=== PATIENT | male | born 1955 | race Hispanic/Latino ===

== ENCOUNTER 2016-11-13 13:32 | Observation (INO) | payer OTHER ==
[2016-11-13 13:32] VITALS: PULSE 82
[2016-11-13 14:04] LABS: ADD MANUAL DIFF? NO
[2016-11-13 14:09] LABS: BASO # 0.01 K/mm3 (0.0-2.0); BASO % 0.1 % (0.0-3.0); EOS # 0.2 (0.0-0.7); EOS % 1.8 % (1.5-5.0); GRAN # 6.47 (1.4-6.5); GRAN % 74.2 % (50.0-68.0); HEMATOCRIT 39.3 % (42.0-52.0); LYMPH # 1.6 (1.2-3.4); LYMPH % 17.9 % (22.0-35.0); MEAN CELL VOLUME 80.9 fL (80.0-105.0); MEAN CORPUSCULAR HEMOGLOBIN 27.2 pg (25.0-35.0); MEAN CORPUSCULAR HGB CONC 33.6 g/dl (31.0-37.0); MEAN PLATELET VOLUME 9.1 fl (7.0-11.0); MONO # 0.5 (0.1-0.6); PLATELET COUNT 283 10^3/uL (120.0-450.0); RED CELL DISTRIBUTION WIDTH 14.1 % (11.5-14.5); WHITE BLOOD COUNT 8.7 10^3/ul (4.5-11.0)
[2016-11-13] MEDS ORDERED: Metoprolol Succinate 50 mg XL Tab PO STA (14:14)
[2016-11-13 14:16] LABS: ALB/GLOB RATIO 1.1 (1.1-1.8); ALKALINE PHOSPHATASE 54 U/L (38-133); ALT/SGPT 30 U/L (7-56); AST/SGOT 25 U/L (15-59); BILIRUBIN,TOTAL 0.7 mg/dL (0.2-1.3); BLOOD UREA NITROGEN 16 mg/dL (7-21); CALCIUM 9.5 mg/dL (8.4-10.5); CARBON DIOXIDE 26 mmol/L (21-33); CHLORIDE 100 mmol/L (98-107); GFR AFRICAN-AMERICAN > 60; GLUCOSE,RANDOM 112 mg/dL (70-110); POTASSIUM 4.4 mmol/L (3.6-5.0); SODIUM 138 mmol/L (132-148); TOTAL PROTEIN 8.6 g/dL (5.8-8.3)
[2016-11-13 14:28] LABS: TROPONIN I < 0.01 ng/mL
--- NOTE | 2016-11-13 15:17 | ED PDOC ---
Arrival/HPI - General Chief Complaint: Chest Pain Time Seen by Provider: 11/13/16 13:45 Historian: Patient - History of Present Illness Narrative History of Present Illness (Text): 11/13/16 14:01 A 61 year old male, whose past medical history includes CAD with stents, presents to the emergency department complaining of exertional chest pain and dyspnea on exertion that began and hour and half ago. Patient reports currently he does not have the chest pain but every time he walks up the stairs he feels short of breath. He mention he is getting over a cold, but denies any fever, nausea, vomiting, diaphoresis, lower extremity swelling or any other complaints at this time. Patient took his Aspirin and Plavix this morning. He is a formal smoker, drinks socially but does not taking any drugs. 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 11/13/16 20:29 Time/Duration: 1-3 hours Symptom Onset: Sudden Symptom Course: Improving Quality: Other Activities at Onset: Rest Context: Home Past Medical History - Provider Review Nursing Documentation Reviewed: Yes - Tetanus Immunization Tetanus Immunization: Unknown - Cardiac Hx Cardiac Disorders: Yes Hx Cardiac Arrhythmia: Yes Hx Hypertension: Yes Hx Pacemaker: No - Neurological Hx Paralysis: No - HEENT Hx HEENT Disorder: Yes (WEARS RX GLASSES) - Hematological/Oncological Hx Blood Transfusions: No Hx Blood Transfusion Reaction: No - Musculoskeletal/Rheumatological Hx Musculoskeletal Disorders: Yes Hx Falls: Yes Hx Fractures: Yes (RIGHT ARM) - Psychiatric Hx Emotional Abuse: No Hx Physical Abuse: No Hx Substance Use: No - Surgical History Hx Cardiac Catheterization: Yes Hx Coronary Stent: Yes (3) - Anesthesia Hx Anesthesia: Yes Hx Anesthesia Reactions: No Hx Malignant Hyperthermia: No - Suicidal Assessment Feels Threatened In Home Enviroment: No Family/Social History - Physician Review Nursing Documentation Reviewed: Yes Family/Social History: Unknown Family HX Smoking Status: Former Smoker Hx Alcohol Use: Yes Frequency of alcohol use: Few days per week Hx Substance Use: No Hx Substance Use Treatment: No Allergies/Home Meds Allergies/Adverse Reactions: Allergies No Known Allergies Allergy (Verified 11/13/16 13:35) Home Medications: Home Meds Medication Instructions Recorded Confirmed Clopidogrel [Plavix] 75 mg PO DAILY 07/19/14 11/13/16 Aspirin [Aspirin] 81 mg PO DAILY 07/21/14 11/13/16 Oxycodone HCl [Oxycodone HCl ER] 30 mg PO PRN PRN 11/13/16 11/13/16 Rosuvastatin Calcium [Crestor] 10 mg PO DAILY 11/13/16 11/13/16 amLODIPine [Norvasc] 5 mg PO DAILY 11/13/16 11/13/16 Review of Systems - Physician Review All systems were reviewed & negative as marked: Yes - Review of Systems Constitutional: absent: Fevers Respiratory: Cough Cardiovascular: Chest Pain, NAQVI. absent: Edema Physical Exam Vital Signs Reviewed: Yes Vital Signs Temp Pulse Resp BP Pulse Ox 11/13/16 19:11 71 18 148/90 100 11/13/16 17:31 60 16 150/98 H 99 11/13/16 14:49 78 157/103 H 11/13/16 13:42 199/154 H 11/13/16 13:41 97.7 F 67 15 198/154 H 99 Temperature: Afebrile Blood Pressure: Hypertensive Pulse: Regular Respiratory Rate: Normal Appearance: Positive for: Well-Appearing, Non-Toxic, Comfortable Pain Distress: None Mental Status: Positive for: Alert and Oriented X 3 - Systems Exam Head: Present: Atraumatic, Normocephalic Pupils: Present: PERRL Extroacular Muscles: Present: EOMI Conjunctiva: Present: Normal Mouth: Present: Moist Mucous Membranes Neck: Present: Normal Range of Motion Respiratory/Chest: Present: Clear to Auscultation, Good Air Exchange. No: Respiratory Distress, Accessory Muscle Use Cardiovascular: Present: Regular Rate and Rhythm, Normal S1, S2. No: Murmurs Abdomen: Present: Normal Bowel Sounds. No: Tenderness, Distention, Peritoneal Signs Back: Present: Normal Inspection Upper Extremity: Present: Normal Inspection. No: Cyanosis, Edema Lower Extremity: Present: Normal Inspection. No: Edema Neurological: Present: GCS=15, CN II-XII Intact, Speech Normal Skin: Present: Warm, Dry, Normal Color. No: Rashes Psychiatric: Present: Alert, Oriented x 3, Normal Insight, Normal Concentration Medical Decision Making ED Course and Treatment: 11/13/16 14:01 Impression: A 61 year old male with exertional chest pain and dyspnea of exertion. Differential Diagnosis include but are not limited to: ACS vs. hypertension Plan: -- EKG -- Chest X-ray -- Labs -- Urinalysis -- Toprol -- Reassess and disposition Prior Visits: Notes and results from previous visits were reviewed. The patient last presented to the emergency department on 11/27/14 for evaluation of left sided chest pain. Progress Notes: EKG: Ordered, reviewed, and independently interpreted the EKG. Rate : 66 BPM Rhythm : NSR Interpretation : No ST/T changes from previous EKG. Comparison : No change from previous EKG for comparison. there are t wave inversions in v5 and v6 but were present previously 11/13/16 15:40 Chest X-ray: Creator : Crow Cox MD COMPARISON: 11/27/2014 FINDINGS: LUNGS: No active pulmonary disease. PLEURA: No significant pleural effusion identified, no pneumothorax apparent. CARDIOVASCULAR: Normal. OSSEOUS STRUCTURES: No significant abnormalities. VISUALIZED UPPER ABDOMEN: Normal. OTHER FINDINGS: None. IMPRESSION: No active disease. 11/13/16 16:25 Dr. Lopez paged. 11/13/16 16:[address] Aponte, who is aware and agrees with the plan to place the patient in Telemetry for observation for dyspnea on exertion and chest pain. He notes to consult Dr. Vidales. jeny salcido no answer. dr ga came to see pt and put orders in as well. I have discussed the results and plan with the patient, who expresses understanding. Patient given the opportunity to ask question, all questions were answered and there is agreement with the plan to be admitted to the hospital. 11/13/16 20:32 - Lab Interpretations Lab Results: 11/13/16 14:00 11/13/16 14:00 Lab Results 11/13/16 16:23: Urine Color Yellow, Urine Appearance Clear, Urine pH 6.0, Ur Specific [place] >= 1.030, Urine Protein Trace H, Urine Glucose (UA) Negative, Urine Ketones Negative, Urine Blood Small H, Urine Nitrate Negative, Urine Bilirubin Negative, Urine Urobilinogen 0.2, Ur Leukocyte Esterase Negative, Urine RBC 1 - 3, Urine WBC Negative, Ur Epithelial Cells 0 - 2, Urine Bacteria Trace 11/13/16 14:00: WBC 8.7 D, RBC 4.86, Hgb 13.2 L, Hct 39.3 L, MCV 80.9, MCH 27.2 , MCHC 33.6, RDW 14.1, Plt Count 283, MPV 9.1, Gran % 74.2 H, Lymph % (Auto) 17.9 L, Bent % (Auto) 6.0, Eos % (Auto) 1.8, Baso % (Auto) 0.1, Gran # 6.47, Lymph # 1.6, Bent # 0.5, Eos # 0.2, Baso # 0.01, Sodium 138, Potassium 4.4, Chloride 100, Carbon Dioxide 26, Anion Gap 16, BUN 16, Creatinine 1.0, Est GFR ( Amer) > 60, Est GFR (Non-Af Amer) > 60, Random Glucose 112 H, Calcium 9.5, Total Bilirubin 0.7, AST 25, ALT 30, Alkaline Phosphatase 54, Lactate Dehydrogenase 446, Total Creatine Kinase 71, Troponin I < 0.01, NT-Pro-B Natriuret Pep 118, Total Protein 8.6 H, Albumin 4.5, Globulin 4.1, Albumin/ Globulin Ratio 1.1 I have reviewed the lab results: Yes - RAD Interpretation Radiology Orders: 11/13/16 14:00 CHEST PORTABLE [RAD] Stat - Medication Orders Current Medication Orders: Amlodipine Besylate (Norvasc) 5 mg PO DAILY [facility] Aspirin (Ecotrin) 81 mg PO DAILY [facility] Atorvastatin Calcium (Lipitor) 40 mg PO DAILY [facility] Last Admin: 11/13/16 18:55 Dose: 40 MG Carvedilol (Coreg) 6.25 mg PO BID [facility] Discontinued Medications Enoxaparin Sodium (Lovenox) 70 mg SC STAT STA Stop: 11/13/16 18:30 Last Admin: 11/13/16 18:57 Dose: 70 MG Subcutaneous Administrations Document 11/13/16 18:57 SHARITA (Rec: 11/13/16 18:57 SHARITA [id number]) Injection Site MAR Injection Site Right Arm Charges for Administration # of Subcutaneous Administrations 1 Metoprolol Succinate (Toprol Xl) 50 mg PO STAT STA Stop: 11/13/16 14:15 Last Admin: 11/13/16 14:49 Dose: 50 MG MAR Pulse and Blood Pressure Document 11/13/16 14:49 SHARITA (Rec: 11/13/16 14:49 SHARITA [id number]) Pulse Pulse Rate (60-90) 78 Blood Pressure Blood Pressure (100/60-150/90) 157/103 - Scribe Statement The provider has reviewed the documentation as recorded by the Josue Adorno Provider Josue Attestation: All medical record entries made by the Kimberlyibcharlotte were at my direction and personally dictated by me. I have reviewed the chart and agree that the record accurately reflects my personal performance of the history, physical exam, medical decision making, and the department course for this patient. I have also personally directed, reviewed, and agree with the discharge instructions and disposition. . Disposition/Present on Arrival - Present on Arrival Any Indicators Present on Arrival: No History of DVT/PE: No History of Uncontrolled Diabetes: No Urinary Catheter: No History of Decub. Ulcer: No History Surgical Site Infection Following: None - Disposition Have Diagnosis and Disposition been Completed?: Yes Diagnosis: Unstable angina Disposition: HOSPITALIZED Disposition Time: 15:30 Patient Plan: Admission Condition: STABLE
--- NOTE | 2016-11-13 15:37 | RAD ---
HISTORY: chest pain COMPARISON: 11/27/2014 FINDINGS: LUNGS: No active pulmonary disease. PLEURA: No significant pleural effusion identified, no pneumothorax apparent. CARDIOVASCULAR: Normal. OSSEOUS STRUCTURES: No significant abnormalities. VISUALIZED UPPER ABDOMEN: Normal. OTHER FINDINGS: None. IMPRESSION: No active disease.
[2016-11-13 16:31] LABS: URINE BILIRUBIN NEGATIVE (NEGATIVE); URINE BLOOD SMALL (NEGATIVE); URINE GLUCOSE (UA) NEGATIVE (NEGATIVE); URINE KETONE NEGATIVE (NEGATIVE); URINE LEUKOCYTE ESTERASE NEGATIVE Leu/uL (NEGATIVE); URINE PROTEIN TRACE mg/dL (<30 mg/dL); URINE UROBILINOGEN 0.2 E.U./dL (<1 E.U./dL)
[2016-11-13 16:34] LABS: URINE APPEARANCE CLEAR (CLEAR); URINE COLOR YELLOW (YELLOW)
[2016-11-13 16:45] LABS: URINE BACTERIA TRACE (NEG); URINE EPITHELIAL CELLS 0 - 2 /hpf (0-5); URINE WBC NEGATIVE /hpf (0-6)
[2016-11-13] MEDS ORDERED: Enoxaparin 60 mg Syringe SC STA (18:25)
[2016-11-13] MEDS ORDERED: Enoxaparin 80 mg Syringe SC STA (18:29)
--- NOTE | 2016-11-13 19:20 | CON ---
DATE: 11/13/2016 REASON FOR CONSULTATION: Chest pain, possible acute coronary syndrome, unstable angina. BRIEF CLINICAL HISTORY: A 61-year-old male with a past medical history significant for coronary nilo ry disease, status post angioplasty twice. Came in with a complaint of chest pain while the patient was going up stairs in his house. Suddenly, he developed chest pain and got very short winded that s tops him from going up, so decided to come to the Emergency Room. PAST MEDICAL HISTORY: Significant for coronary artery disease, cardiomyopathy, ischemic and nonische viviane, history of alcohol abuse, history of coronary artery disease, status post PTCA of ramus intermed ius 07/21/2014 and then repeat stent in LAD and ramus 11/28/2014. Significant for coronary artery dis ease, status post PTCA x 2, first one is of ramus intermedius 07/21/2014 and then patient had a repea t cardiac catheterization and stenting was done 11/28/2014. At that time, 11/28/2014, patient had a st ent in ramus intermedius as well as stent in obtuse marginal 1 was done. PREVIOUS CARDIAC WORKUP: The patient had most recently cardiac catheterization done on 11/28/2014 of ramus with RAFAEL and obtuse marginal 1 RAFAEL. Prior to that, patient had a stent on 07/21/2014. Apparen tly, appears noncompliance, history of alcohol abuse, history of cardiomyopathy, ejection fraction 40 %-45%, EDP was in the range of 12-14 on last catheterization SOCIAL HISTORY: Denies any history of smoking, but history of alcohol abuse in the past. CURRENT MEDICATIONS: The patient is taking Crestor, Plavix 75 mg daily, Crestor 10 mg daily, amlodip ine 5 mg daily, oxycodone and aspirin. REVIEW OF SYSTEMS: As per HPI. PHYSICAL EXAMINATION: VITAL SIGNS: Temperature afebrile, heart rate 60, blood pressure 150/98. HEENT: PERRLA. Extraocular muscles intact. NECK: Supple. No carotid bruits. No thyromegaly. CHEST: Clear to auscultation. HEART: S1, S2 regular. ABDOMEN: Soft. EXTREMITIES: Clubbing, cyanosis negative. BLOOD WORKUP: WBC 8.7, hemoglobin 13.2, hematocrit 39.3, platelet count 283. Chemistry shows sodium 130, potassium 4.1, chloride 100, carbon dioxide 26, anion gap of 16, BUN 16, creatinine 1.0. EKG showed normal sinus, no acute ST-T changes noted. IMPRESSION: Unstable angina, hypertension, coronary artery disease, status post stent 07/21/2014 of [facility] and recently 11/2014, patient had re-stent in ramus as well as obtuse marginal 1, hypertension, hyperlipidemia, noncompliance with the medication. RECOMMENDATION: We will give the Plavix, 1 dose of Lovenox. Cardiac catheterization tomorrow for po ssible angioplasty. Discussed with the patient briefly alternatives. The patient agreed. We will p roceed for cardiac catheterization tomorrow. Keep n.p.o. after 12:00 midnight for cardiac catheteriz ation. Will get lipid profile, TSH, hemoglobin A1c in the morning and keep n.p.o. We will give Plav ix. Thank you, Dr. Lopez, for providing us the opportunity in taking care of the patient. Nini Ga MD cc: [id number] TT: 11/13/2016 19:19:44 Confirmation # [id number] Dictation # [id number] en
[2016-11-13 23:15] VITALS: BMI 26.3
[2016-11-14 07:17] LABS: ADD MANUAL DIFF? NO
[2016-11-14 07:31] LABS: BASO # 0.02 K/mm3 (0.0-2.0); BASO % 0.3 % (0.0-3.0); EOS # 0.2 (0.0-0.7); EOS % 2.1 % (1.5-5.0); GRAN # 4.65 (1.4-6.5); GRAN % 65.4 % (50.0-68.0); HEMATOCRIT 39.6 % (42.0-52.0); LYMPH # 1.7 (1.2-3.4); LYMPH % 24.3 % (22.0-35.0); MEAN CORPUSCULAR HGB CONC 33.3 g/dl (31.0-37.0); MONO # 0.6 (0.1-0.6); MONO % 7.9 % (1.0-6.0); PLATELET COUNT 258 10^3/uL (120.0-450.0); RED CELL DISTRIBUTION WIDTH 14.1 % (11.5-14.5); WHITE BLOOD COUNT 7.1 10^3/ul (4.5-11.0)
[2016-11-14 07:47] LABS: ALB/GLOB RATIO 1.1 (1.1-1.8); ALKALINE PHOSPHATASE 58 U/L (38-133); ALT/SGPT 33 U/L (7-56); AST/SGOT 40 U/L (15-59); BILIRUBIN,TOTAL 0.6 mg/dL (0.2-1.3); BLOOD UREA NITROGEN 14 mg/dL (7-21); CALCIUM 9.7 mg/dL (8.4-10.5); CARBON DIOXIDE 27 mmol/L (21-33); CHLORIDE 100 mmol/L (95-110); CHOLESTEROL 311 mg/dL (130-200); GFR AFRICAN-AMERICAN > 60; GLUCOSE,RANDOM 82 mg/dL (70-110); MAGNESIUM 2.1 mg/dL (1.7-2.2); PHOSPHOROUS 3.1 mg/dL (2.5-4.5); POTASSIUM 4.2 mmol/L (3.6-5.0); SODIUM 139 mmol/L (132-148); TOTAL PROTEIN 8.1 g/dL (5.8-8.3)
--- NOTE | 2016-11-14 09:14 | PN ---
DATE: 11/14/2016 REASON FOR CONSULTATION AND FOLLOWUP: Chest pain, acute coronary syndrome, unstable angina. BRIEF CLINICAL HISTORY: This is a 61-year-old male with past medical history significant for coronar y artery disease, status post angioplasty twice. First angioplasty, the patient had ramus intermediu s on 07/21/2014 and a repeat stent in ramus 11/28/2014 and obtuse marginal 1. By mistake yesterday, pu t LAD. It was an obtuse marginal 1, OM1 on 11/28/2014, came yesterday with a complaint of new onset of chest pain. The patient was going up stairs and felt a little chest pain and suddenly got short o f breath, came to the Emergency Room. The patient is scheduled for cardiac catheterization today. D enies any chest pain at rest. History of alcohol abuse. PHYSICAL EXAMINATION: VITAL SIGNS: Temperature afebrile, heart rate 67, blood pressure 144/79. HEENT: PERRLA. Extraocular muscles intact. NECK: Supple. No carotid bruits. No thyromegaly. CHEST: Clear to auscultation. HEART: S1, S2 regular. ABDOMEN: Soft. EXTREMITIES: Clubbing and cyanosis negative. LABORATORY DATA: Blood workup as follows: WBC 7.1, hemoglobin 13.8, hematocrit 39.6, platelet count 258. Chemistry shows sodium 130, potassium 4.2, chloride 100, carbon dioxide 27, anion gap of 16, B UN 14, creatinine 0.4. Troponin pending. Triglyceride 322, cholesterol 311, LDL 208, HDL 39. TSH p ending. Hemoglobin A1c pending. IMPRESSION: Acute coronary syndrome, unstable angina, prediabetic, hypertension, hyperlipidemia, non compliance with the medication, history of alcohol abuse. RECOMMENDATION: We will load Plavix. The patient was on Plavix. We will continue Plavix Continue C oreg, continue aspirin, continue Plavix, continue metoprolol, keep n.p.o. after the breakfast, cardia c catheterization at 3:30. Discussed with the patient benefits and alternatives. The patient is agr eeable to proceed for cardiac catheterization at 3:00 p.m. Further recommendation after cardiac cath eterization. Thank you, Dr. Lopez, for providing us the opportunity in taking care of the patient. Nini Ga MD cc:Eric Lopez MD [facility] TT: 11/14/2016 09:13:16 Confirmation # [id number] Dictation # [id number] tn
[2016-11-14 09:58] LABS: TROPONIN I 0.41 ng/mL
[2016-11-14] MEDS ORDERED: Morphine 2 mg/ml ISec IVP PRN (10:13)
[2016-11-14 11:16] LABS: INR 0.98 (0.93-1.08); PARTIAL THROMBOPLASTIN TIME 25.8 Seconds (23.7-30.8)
--- NOTE | 2016-11-14 13:23 | CARD ---
APPROVED REPORT EKG Measurement Heart [id number] <Conclusion> Normal sinus rhythm Inferior infarct, age undetermined ST & T wave abnormality, consider anterolateral ischemia Abnormal ECG
--- NOTE | 2016-11-14 13:35 | CARD ---
APPROVED REPORT EKG Measurement Heart [id number] <Conclusion> Normal sinus rhythm Inferior infarct, age undetermined Abnormal ECG
[2016-11-14] MEDS ORDERED: Lidocaine 2% Inj (20ml) ONE (15:31)
[2016-11-14] MEDS ORDERED: Nitroglycerin 50mg in D5W 250 ML IV ONE (15:32)
[2016-11-14] MEDS: Midazolam 2 MG/2 ML VIAL ONE ×2 (15:59→17:15)
[2016-11-14] MEDS ORDERED: Bacitracin 500 Units/gm Oint Foilpak UD TOP ONE (16:46)
[2016-11-14] MEDS ORDERED: Sodium Chloride 0.9% 1,000 ML IV SCH (17:00)
--- NOTE | 2016-11-14 17:24 | CARD ---
APPROVED REPORT Procedure(s) performed: Left Heart Catheterization HISTORY The patient is a 61 year-old male with a history of : previous ID (> 7 days), most recent EF: 45%. (EF Method: LVG), previous diagnostic cath, tobacco history() : The patient is a former smoker , previous PCI (The PCI date was 11/28/2014), hypertension , dyslipidemia , Admitted with unstable angina. INDICATION The indication(s) include : unstable angina , non-STEMI . CASE TECHNIQUE The patient was brought urgently to the Cardiac Catheterization Laboratory in a fasting state and was prepped and draped in a sterile manner. The left wrist was infiltrated with 2% Lidocaine subcutaneous anesthesia. A 6 Fr Glidesheath (Radial) sheath was inserted into the left radial artery without difficulty. Coronary angiography was performed using coronary diagnostic catheters. The left coronary system was accessed and visualized with a Diagnostic ,5 Fr JL 3.5 catheter. The right coronary system was accessed and visualized with a Diagnostic ,5 Fr JR 4 catheter. The left ventricle was accessed and visualized with a pigtail catheter. Left ventricular/Aortic Valve gradient assessed on pullback. Left ventriculogram was performed in GAMEZ projection. Closure device was deployed with a Fr TR Band (Large) without any complications. The patient tolerated the procedure well and there were no complications associated with the procedure. Vessel Analysis The patient's coronary anatomy is right dominant. The left main coronary artery is a large size vessel with diffuse calcification noted throughout this vessel and without significant stenosis. The left main trifurcates to the left anterior descending, circumflex, and ramus. The left anterior descending artery is a large size vessel with diffuse calcification noted throughout this vessel and with significant stenosis. There is a 40-50% stenosis in the ostial segment. mid LAD has 40-50% stenosis and distal LAD has 60-70% Diffuse stenosis The first diagonal branch is a small size vessel with diffuse calcification noted throughout this vessel and with significant stenosis. The second diagonal branch is a small size vessel with diffuse calcification noted throughout this vessel and without significant stenosis. The circumflex artery is a medium size vessel with diffuse calcification noted throughout this vessel and without significant stenosis. The first obtuse marginal branch is a medium size vessel with diffuse calcification noted throughout this vessel and without significant stenosis. patent stent in mid segment The second obtuse marginal branch is a small size vessel with diffuse calcification noted throughout this vessel and without significant stenosis. The ramus intermedius artery is a medium size vessel with diffuse calcification noted throughout this vessel and without significant stenosis. Patent stent in main ramus intermedius, which also gives off a small branch <1.5 mmm in diamete which is diffusely diseased, not suitable for PCI. There is a 95% stenosis in the mid segment. upper div. as mentioned above. The right coronary artery is a large size vessel with diffuse calcification noted throughout this vessel and without significant stenosis. The right posterior descending artery is a medium size vessel with diffuse calcification noted throughout this vessel and with significant stenosis. R PDA Divides into uper and lower division, Lower div. has 80-90% stenosis in mid segment <1.5 mm vessel not suitable for PCI The right posterolateral branch is a medium size vessel with diffuse calcification noted throughout this vessel and with significant stenosis. There is a 90% stenosis in the distal segment. not suitable for PCI ,distally <1.5 mm vessel Left Ventricle The left ventricle is mildly enlarged in size with mildly decreased contractility. Ischemic cardiomyopathy. The left ventricular ejection fraction is estimated to be 45%. The left ventricular end diastolic pressure is 18-20 mmHg. There was no gradient across the aortic valve upon pullback. Conclusion Patent stent in Ramus intermedius and OM1 Small vessel Diz involving Upper Div of Ramus intermedius, Lower Div of R PDA and PLV Br, which are all Small calibre vessels and ,1.5 mm in diameter and not Suitable for PCI. Mildly decreased LV FX. EF-45%, EDp-18-20 mmof Hg. Heavy Atyherosclerotic Spencer in coronaries. Recommendations Aggressive Medical TherapyCardiac Risk Reduction Program Complete abstinence of ETOH abuse Add Ranexa 500 mg po BID and Atorvastatin 40 mg daily in current regimen. Goal is to Keep LDL,70 Cc; Chip Mock MD
[2016-11-14 18:11] VITALS: TEMP 98.4; O2SAT 96
[2016-11-14 18:46] VITALS: RESP 18
[2016-11-14] MEDS ORDERED: Bacitracin 500 Units/gm Oint Foilpak UD ONE (18:53)
[2016-11-14 19:20] VITALS: BP 139/73; PULSE 71
--- NOTE | 2016-11-14 22:03 | HP ---
HISTORY OF PRESENT ILLNESS: This is a 61-year-old male who lives across the street from my office, I have known for several years with a history of hypertension since 2011, hyperlipidemia since 2012 an d intolerance to statin therapy and tobacco use. He comes to the Emergency Room because of chest karl n for approximately 2 hours duration. The patient says this is a pressure-like pain associated with exertional dyspnea and feels very much like his heart attack when stents were placed back in 2011 and 2013. PAST MEDICAL HISTORY: Significant for hypertension, coronary artery disease, hyperlipidemia, tobacco use as noted above. He is noncompliant with his medications. At the time of this admission I do not believe he is taking any medications although statins, antihypertensive meds and aspirin had been prescribed. ALLERGIES: He has no known allergies. SOCIAL HISTORY: Continues to smoke. Occasionally drinks alcohol. 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 REVIEW OF SYSTEMS: Otherwise, unremarkable for multi points and significant only for arthritis of th e spine and hands and knees as well as some anxiety or depression symptoms. PHYSICAL EXAMINATION: GENERAL: The patient was seen this evening in the Emergency Room, slot #7 with his at the bedside. He is awake, alert, clear, appropriate and in good spirits, reporting now chest pain fr ee, but somewhat uncomfortable with symptoms he had had earlier. HEENT: Unremarkable. Conjunctivae pink. Mucous membranes moist. NECK: Supple, without masses. Thyroid is not palpable. There are no carotid bruits. No JVD. CHEST: Clear with decreased breath sounds and a slightly prolonged expiratory phase of tobacco use. HEART: Regular, nontachycardic. ABDOMEN: A little bit overweight, but otherwise unremarkable, soft, and nontender. EXTREMITIES: Show no edema with DP and PT pulses present. IMPRESSION: 1. A 61-year-old man with history of coronary artery disease and a typical classical chest pain. 2. Hypertension. 3. Hyperlipidemia. 4. Statin intolerance. 5. Noncompliance with medications. 6. Tobacco use disorder. 7. Chronic back pain. 8. Chronic opiate use. PLAN: The patient is to be admitted to telemetry monitored bed. He was already seen by cardiology a nd cardiac catheterization scheduled for tomorrow. Eric Lopez MD cc: [id number] TT: 11/14/2016 22:02:36 jn
--- NOTE | 2016-11-14 23:20 | DS ---
This is a 61-year-old man I have known for several years with a history of hypertension and stent familia cement in 2011 and 2013 for coronary artery disease. He also has a history of tobacco use, chronic b ack pain and chronic opiate use. He is noncompliant with medications and intolerant of statins. Sev eral statins have been tried in the past all causing rather severe muscle cramps. The patient presen imtiaz to the Emergency Room with chest pain. Initially he complained of exertional dyspnea but later a dmitted to a pressure like pain, which he reports was just like his myocardial infarction when he had stents placed in 2011 and 2013. He was admitted to the medical floor, treated with nitrates, antico agulants and beta blockers. Cardiac catheterization was performed the next day, today 11/14/16. Cor onary arteries were patent but there was significant underlying coronary artery disease. Medical the rapy was advised to be continued. Additional medications were added by Train Starter, Dr. Ga, tai Mcgraw. He was put back on a statin and aspirin and ready for discharge to home. Initially, plan was to keep him overnight but the patient was very hesitant to stay and wanted very much to go home and so at 8:00 p.m. he was ready and discharged home. He will follow up in the office within t he week. Prescriptions were left by Train Starter, Dr. Ga. FINAL DISCHARGE DIAGNOSES: 1. Acute myocardial infarction with positive troponins. 2. Coronary artery disease. 3. Hypertension. 4. Hyperlipidemia. 5. Tobacco use disorder. 6. Chronic back pain. 7. Noncompliance with medication regimen. 8. Chronic opiate use. Eric Lopez MD cc: [id number] TT: 11/14/2016 23:19:57 ren
== END 2016-11-14 20:45 | disposition home or self-care (01) ==
LOC: ED 13:32 → ERH 16:34 → 2RNO 20:08 → 2RSO 11-14 17:20
PROVIDERS: ADMIT Internal Medicine; ATTEND Internal Medicine
DX: I21.4 Non-ST elevation (NSTEMI) myocardial infarction (principal); I25.110 Atherosclerotic heart disease of native coronary artery with unstable angina pectoris; I10 Essential (primary) hypertension; E78.5 Hyperlipidemia, unspecified; I25.5 Ischemic cardiomyopathy; G89.29 Other chronic pain; M54.9 Dorsalgia, unspecified; R73.03 Prediabetes; Z91.14 Patient's other noncompliance with medication regimen; Z79.891 Long term (current) use of opiate analgesic; Z95.5 Presence of coronary angioplasty implant and graft; Z87.891 Personal history of nicotine dependence; Z79.02 Long term (current) use of antithrombotics/antiplatelets; Z79.82 Long term (current) use of aspirin
CPT/HCPCS: 36415; 71010; 80053; 80061; 81001; 82550; 83036; 83615; 83735; 83880; 84100; 84443; 84484; 85025; 85610; 85730; 93005; 93458; 96372; 99152; 99285; C1769; C1887; G0378; J1644; J1650; J2250; J3010; J7040; Q9967

== ENCOUNTER 2016-11-17 05:51 | Inpatient (IN) | payer OTHER ==
[2016-11-17 05:51] VITALS: PULSE 82; BMI 27.2
--- NOTE | 2016-11-17 06:10 | ED PDOC ---
Arrival/HPI - General Chief Complaint: Chest Pain Time Seen by Provider: 11/17/16 05:56 Historian: Patient - History of Present Illness Narrative History of Present Illness (Text): 11/17/16 06:09 Emery Davis is a 61 year old male, whose past medical history includes hypertension, CAD, hyperlipidemia, and tobacco abuse, who presents to the emergency department complaining of mid-sternal chest pain and belching since last night. Patient states he originally attributed his chest pain for gas and took Gas-Ex but denies any relief. Patient recently underwent a cardiac catheterization on 11/14/2016. Patient also notes he has been experiencing cold- like symptoms for the past week. Patient denies any fever, chills, shortness of breath, nausea, vomiting, diarrhea, urinary symptoms, back pain, neck pain, headache, dizziness, or any other complaints. PMD: Dr. Minh Lopez Supervisor Wool Shearing: Dr. Ga Time/Duration: Other (tonight) Symptom Onset: Gradual Symptom Course: Unchanged Activities at Onset: Rest, Light Context: Home Past Medical History - Provider Review Nursing Documentation Reviewed: Yes - Infectious Disease Hx of Infectious Diseases: None - Tetanus Immunization Tetanus Immunization: Unknown - Cardiac Hx Cardiac Disorders: Yes Hx Cardiac Arrhythmia: Yes Hx Hypertension: Yes - Pulmonary Hx Respiratory Disorders: No - Neurological Hx Neurological Disorder: No Hx Paralysis: No - HEENT Hx HEENT Disorder: Yes (WEARS RX GLASSES) - Renal Hx Renal Disorder: No - Endocrine/Metabolic Hx Endocrine Disorders: No - Hematological/Oncological Hx Blood Disorders: No Hx Blood Transfusions: No Hx Blood Transfusion Reaction: No - Integumentary Hx Dermatological Disorder: No - Musculoskeletal/Rheumatological Hx Musculoskeletal Disorders: Yes Hx Falls: Yes - Gastrointestinal Hx Gastrointestinal Disorders: No - Genitourinary/Gynecological Hx Genitourinary Disorders: No - Psychiatric Hx Psychophysiologic Disorder: No Hx Substance Use: No Other/Comment: hx ETOH abuse - Surgical History Hx Cardiac Catheterization: Yes Hx Coronary Stent: Yes (3) - Anesthesia Hx Anesthesia: Yes Hx Anesthesia Reactions: No Hx Malignant Hyperthermia: No - Suicidal Assessment Feels Threatened In Home Enviroment: No Family/Social History - Physician Review Nursing Documentation Reviewed: Yes Family/Social History: No Known Family HX Smoking Status: Former Smoker Hx Alcohol Use: Yes (once per week) Hx Substance Use: No Hx Substance Use Treatment: No Allergies/Home Meds Allergies/Adverse Reactions: Allergies No Known Allergies Allergy (Verified 11/15/16 12:04) Home Medications: Home Meds Medication Instructions Recorded Confirmed Clopidogrel [Plavix] 75 mg PO DAILY 07/19/14 11/17/16 Aspirin [Aspirin] 81 mg PO DAILY 07/21/14 11/17/16 Rosuvastatin Calcium [Crestor] 10 mg PO DAILY 11/13/16 11/17/16 Atorvastatin [Lipitor] 40 mg PO DAILY 11/17/16 11/17/16 oxyCODONE Immediate Release Tab 30 mg PO PRN PRN 11/17/16 11/17/16 Review of Systems - Physician Review All systems were reviewed & negative as marked: Yes - Review of Systems Constitutional: Normal. absent: Fevers Eyes: Normal ENT: Normal Respiratory: Normal. absent: SOB, Cough Cardiovascular: Chest Pain Genitourinary Male: Normal. absent: Dysuria, Frequency, Hematuria, Urinary Output Changes Musculoskeletal: Normal. absent: Back Pain, Neck Pain Skin: Normal. absent: Rash Neurological: Normal. absent: Headache, Dizziness Endocrine: Normal Hemo/Lymphatic: Normal Psychiatric: Normal Physical Exam Vital Signs Reviewed: Yes Vital Signs Temp Pulse Resp BP Pulse Ox 11/17/16 14:03 99 F 88 16 134/88 97 11/17/16 13:43 98.6 F 76 18 164/90 H 11/17/16 13:30 100 H 20 135/81 99 11/17/16 12:24 94 H 18 148/80 96 11/17/16 11:23 98 H 18 158/101 H 96 11/17/16 11:22 107 H 158/101 H 11/17/16 10:00 98.2 F 82 16 170/88 H 98 11/17/16 09:02 76 18 164/90 H 98 11/17/16 08:27 75 130/68 95 11/17/16 07:40 82 18 161/88 H 98 11/17/16 06:05 98.6 F 11/17/16 06:03 78 20 145/90 98 Temperature: Afebrile Blood Pressure: Normal Pulse: Regular Respiratory Rate: Normal Appearance: Positive for: Well-Appearing, Non-Toxic, Comfortable Pain Distress: None Mental Status: Positive for: Alert and Oriented X 3 - Systems Exam Head: Present: Atraumatic, Normocephalic Pupils: Present: PERRL Extroacular Muscles: Present: EOMI Conjunctiva: Present: Normal Mouth: Present: Moist Mucous Membranes Neck: Present: Normal Range of Motion Respiratory/Chest: Present: Clear to Auscultation, Good Air Exchange. No: Respiratory Distress, Accessory Muscle Use Cardiovascular: Present: Regular Rate and Rhythm, Normal S1, S2. No: Murmurs Abdomen: Present: Normal Bowel Sounds. No: Tenderness, Distention, Peritoneal Signs Back: Present: Normal Inspection Upper Extremity: Present: Normal Inspection. No: Cyanosis, Edema Lower Extremity: Present: Normal Inspection. No: Edema Neurological: Present: GCS=15, CN II-XII Intact, Speech Normal Skin: Present: Warm, Dry, Normal Color. No: Rashes Psychiatric: Present: Alert, Oriented x 3, Normal Insight, Normal Concentration Medical Decision Making ED Course and Treatment: 11/17/16 06:09 Impression: 61 year old male complaining of chest pain since last night. Plan: -- EKG -- CXR -- Labs, cardiac enzymes -- Maalox -- Reassess and disposition Prior Visits: Notes and results from previous visits were reviewed. Progress Notes: Reviewed EKG, NSR at 89 bpm. Inferior infarct. Non-specific ST/T wave changes. 11/17/16 06:[address] Minh Lopez, who is aware and agrees with plan. Accepts pt in to his service. Pt will go to Telemetry observation for chest pain. Requests Dr. Ga on consult. Paged Dr. Ga. - Lab Interpretations Lab Results: 11/17/16 06:10 11/17/16 06:10 Lab Results 11/17/16 06:10: WBC 12.1 H D, RBC 5.01, Hgb 13.8 L, Hct 40.0 L, MCV 79.8 L, MCH 27.5, MCHC 34.5, RDW 14.1, Plt Count 269, MPV 9.4 11/17/16 06:10: Sodium 138, Potassium 4.2, Chloride 100, Carbon Dioxide 22, Anion Gap 20, BUN 14, Creatinine 0.8, Est GFR ( Amer) > 60, Est GFR (Non- Af Amer) > 60, Random Glucose 99, Calcium 9.9, Total Bilirubin 1.0, AST 85 H, ALT 36, Alkaline Phosphatase 65, Lactate Dehydrogenase 644, Total Creatine Kinase 293 H, CK-MB (CK-2) 20.0 H, CK-MB (CK-2) % 6.8 H, Troponin I 2.33 H* D, Total Protein 9.0 H, Albumin 4.6, Globulin 4.3, Albumin/Globulin Ratio 1.1 I have reviewed the lab results: Yes - RAD Interpretation Radiology Orders: 11/17/16 06:10 CHEST PORTABLE [RAD] Stat [employer] Driver: ED Physician - EKG Interpretation Interpreted by ED Physician: Yes Type: 12 lead EKG - Medication Orders Current Medication Orders: Aspirin (Ecotrin) 81 mg PO DAILY [facility] Last Admin: 11/18/16 10:37 Dose: 81 mg Atorvastatin Calcium (Lipitor) 40 mg PO HS [facility] Last Admin: 11/18/16 22:39 Dose: Not Given Non-Admin Reason: Patient Refused Carvedilol (Coreg) 6.25 mg PO BID [facility] Last Admin: 11/18/16 17:39 Dose: 6.25 mg Clopidogrel Bisulfate (Plavix) 75 mg PO DAILY [facility] Last Admin: 11/18/16 10:37 Dose: 75 mg Famotidine (Pepcid 20mg/50ml Premix) 50 mls @ 100 mls/hr IVPB Q12 [facility] Last Admin: 11/18/16 22:39 Dose: Not Given Non-Admin Reason: Patient Refused Lisinopril (Zestril) 2.5 mg PO DAILY [facility] Last Admin: 11/18/16 10:37 Dose: 2.5 mg Meclizine HCl (Antivert) 25 mg PO Q6 PRN PRN Reason: dizzy Oxycodone HCl (Oxycodone Immediate Release Tab) 30 mg PO Q6H PRN PRN Reason: Pain, moderate (4-7) Last Admin: 11/18/16 17:40 Dose: 30 mg Re-Assess: [facility] Pain Assessment Document 11/18/16 19:40 MS (Rec: 11/18/16 22:17 MS [id number]) Pain Reassessment Is this a pain reassessment? Yes Sleep Is patient sleeping during reassessment? No Presence of Pain Presence of Pain No Simethicone (Mylicon Liq) 40 mg PO QID [facility] Last Admin: 11/18/16 22:17 Dose: Not Given Non-Admin Reason: Patient Refused Discontinued Medications Al Hydrox/Mg Hydrox/Simethicone (Maalox Plus 30 Ml) 30 ml PO STAT STA Stop: 11/17/16 06:12 Last Admin: 11/17/16 06:32 Dose: 30 ml Amlodipine Besylate (Norvasc) 5 mg PO DAILY [facility] Last Admin: 11/17/16 11:22 Dose: 5 mg Aspirin (Aspirin) 325 mg PO ONCE STA Stop: 11/17/16 06:56 Last Admin: 11/17/16 07:01 Dose: 325 mg Aspirin (Aspirin) Confirm Administered Dose 325 mg .ROUTE .STK-MED ONE Stop: 11/17/16 07:00 Last Admin: 11/17/16 07:05 Dose: Atropine Sulfate (Atropine) Confirm Administered Dose 1 mg .ROUTE .STK-MED ONE Stop: 11/17/16 14:51 Last Admin: 11/17/16 17:18 Dose: Enoxaparin Sodium (Lovenox) 70 mg SC STAT STA PRN Reason: Protocol Stop: 11/17/16 09:46 Last Admin: 11/17/16 10:11 Dose: 70 mg Enoxaparin Sodium (Lovenox) 70 mg SC Q12H [facility] PRN Reason: Protocol Last Admin: 11/17/16 10:11 Dose: Enoxaparin Sodium (Lovenox) 30 mg SC DAILY STA PRN Reason: Protocol Stop: 11/17/16 15:43 Last Admin: 11/17/16 16:03 Dose: 30 mg Comments: IV. Given by Nichelle Whittaker RN per Dr. Ga per [facility] laboratory protocol Eptifibatide (Integrilin Bolus) Confirm Administered Dose 40 mg IVP .STK-MED ONE Stop: 11/17/16 16:05 Last Admin: 11/17/16 16:05 Dose: 31.6 mg Comments: IV. 7.9 ml/15.8 mg @ 1605 1st bolus. 7.9 ml/15.8 mg @ 1615 2nd bolus. Given by Wei Sauceda RN per Dr. Ga. Famotidine (Pepcid) 20 mg IVP STAT STA Stop: 11/17/16 10:20 Last Admin: 11/17/16 12:20 Dose: 20 mg Fentanyl (Fentanyl) Confirm Administered Dose 100 mcg .ROUTE .STK-MED ONE Stop: 11/17/16 15:27 Last Admin: 11/17/16 15:38 Dose: 100 mcg Comments: IV. 50 mcg @ [address] Sauceda. 50 mcg @ [address] Ga by Wei Sauceda RN Heparin Sodium (Porcine) (Heparin) Confirm Administered Dose 10,000 units .ROUTE .STK-MED ONE Stop: 11/17/16 15:18 Last Admin: 11/17/16 17:19 Dose: Hydralazine HCl (Apresoline) Confirm Administered Dose 20 mg .ROUTE .STK-MED ONE Stop: 11/17/16 16:20 Last Admin: 11/17/16 16:22 Dose: 10 mg Comments: IV. Given by Wei Sauceda RN per Dr. Ga. Heparin Sodium (Porcine) (Heparin 1000 Units/500 Ml Ns) Confirm Administered Dose 1,500 mls @ ud IV .STK-MED ONE Stop: 11/17/16 15:19 Last Admin: 11/17/16 20:12 Dose: Nitroglycerin/Dextrose (Nitroglycerin 50 Mg/250 Ml D5w) Confirm Administered Dose 250 mls @ ud IV .STK-MED ONE Stop: 11/17/16 16:10 Last Admin: 11/17/16 17:21 Dose: Sodium Chloride (Sodium Chloride 0.9%) 1,000 mls @ 100 mls/hr IV .Q10H [facility] Stop: 11/17/16 22:00 Last Admin: 11/17/16 17:56 Dose: 100 mls/hr Iodixanol (Visipaque) Confirm Administered Dose 150 ml IV .STK-MED ONE Stop: 11/17/16 15:19 Last Admin: 11/17/16 15:43 Dose: 150 ml Comments: During cath Iodixanol (Visipaque 320 Mg/Ml 100 Ml) Confirm Administered Dose 100 ml IV .STK- MED ONE Stop: 11/17/16 16:11 Last Admin: 11/17/16 16:10 Dose: 100 ml Comments: During cath Iohexol (Omnipaque 350mg/Ml 50 Ml) Confirm Administered Dose 50 ml .ROUTE .STK- MED ONE Stop: 11/17/16 15:19 Last Admin: 11/17/16 15:43 Dose: 50 ml Comments: During cath Isosorbide Mononitrate (Imdur) 30 mg PO DAILY [facility] Last Admin: 11/18/16 10:37 Dose: 30 mg Lidocaine HCl (Lidocaine 2% 20ml Vial) Confirm Administered Dose 20 ml .ROUTE .STK-MED ONE Stop: 11/17/16 15:18 Last Admin: 11/17/16 15:43 Dose: 8 ml Comments: SC into right groin by Dr. Ga Midazolam HCl (Versed Inj) Confirm Administered Dose 2 mg .ROUTE .STK-MED ONE Stop: 11/17/16 15:27 Last Admin: 11/17/16 15:37 Dose: 2 mg Comments: IV. 1 mg @ [address] Ga. 1 mg @ 1543 by Wei Sauceda RN per Dr. Ga. Morphine Sulfate (Morphine) 2 mg IVP STAT STA Stop: 11/17/16 06:56 Last Admin: 11/17/16 07:01 Dose: 2 mg Morphine Sulfate (Morphine) 2 mg IVP STAT STA Stop: 11/17/16 09:45 Last Admin: 11/17/16 10:03 Dose: 2 mg Nitroglycerin (Nitro-Bid 2% Oint) 1 ea TOP ONCE STA Stop: 11/17/16 06:56 Last Admin: 11/17/16 07:01 Dose: 1 ea Nitroglycerin (Nitro-Bid 2% Oint) 1 ea TOP Q6H [facility] Last Admin: 11/18/16 03:27 Dose: 1 ea Non-Formulary Medication (Rosuvastatin Calcium [Crestor]) 10 mg PO DAILY [facility] Phenylephrine HCl (Phenylephrine Inj) Confirm Administered Dose 10 mg .ROUTE .STK-MED ONE Stop: 11/17/16 14:51 Last Admin: 11/17/16 17:22 Dose: Pneumococcal Polyvalent Vaccine (Pneumovax 23 Vaccine) 0.5 ml IM .ONCE ONE Stop: 11/17/16 14:16 - Scribe Statement The provider has reviewed the documentation as recorded by the Josue Balderrama Provider Attestation: All medical record entries made by the Scribe were at my direction and personally dictated by me. I have reviewed the chart and agree that the record accurately reflects my personal performance of the history, physical exam, medical decision making, and the department course for this patient. I have also personally directed, reviewed, and agree with the discharge instructions and disposition. Disposition/Present on Arrival - Present on Arrival Any Indicators Present on Arrival: No History of DVT/PE: No History of Uncontrolled Diabetes: No Urinary Catheter: No History of Decub. Ulcer: No History Surgical Site Infection Following: None - Disposition Have Diagnosis and Disposition been Completed?: Yes Diagnosis: Chest pain Disposition: HOSPITALIZED Disposition Time: 07:25 Condition: GOOD
[2016-11-17] MEDS ORDERED: Alum-Mag Hydrox-Simethicone Susp (30 mL) PO STA (06:11)
[2016-11-17] MEDS ORDERED: Morphine 2 mg/ml ISec IVP STA ×2 (06:55→09:44)
[2016-11-17] MEDS ORDERED: Nitroglycerin 2% Ointment Foilpak UD TOP STA (06:55)
[2016-11-17 07:03] LABS: MEAN CELL VOLUME 79.8 fL (80.0-105.0); MEAN CORPUSCULAR HEMOGLOBIN 27.5 pg (25.0-35.0); MEAN CORPUSCULAR HGB CONC 34.5 g/dl (31.0-37.0); MEAN PLATELET VOLUME 9.4 fl (7.0-11.0); RED CELL DISTRIBUTION WIDTH 14.1 % (11.5-14.5); WHITE BLOOD COUNT 12.1 10^3/ul (4.5-11.0)
[2016-11-17 07:19] LABS: ALB/GLOB RATIO 1.1 (1.1-1.8); ALKALINE PHOSPHATASE 65 U/L (38-133); ALT/SGPT 36 U/L (7-56); AST/SGOT 85 U/L (15-59); BLOOD UREA NITROGEN 14 mg/dL (7-21); CALCIUM 9.9 mg/dL (8.4-10.5); CARBON DIOXIDE 22 mmol/L (21-33); CHLORIDE 100 mmol/L (95-110); GFR AFRICAN-AMERICAN > 60; GLUCOSE,RANDOM 99 mg/dL (70-110); POTASSIUM 4.2 mmol/L (3.6-5.0); SODIUM 138 mmol/L (132-148)
[2016-11-17 08:32] LABS: INR 1.01 (0.93-1.08); PARTIAL THROMBOPLASTIN TIME 27.3 Seconds (23.7-30.8)
--- NOTE | 2016-11-17 08:41 | RAD ---
HISTORY: fever COMPARISON: 11/21/2016 FINDINGS: LUNGS: No active pulmonary disease. PLEURA: No significant pleural effusion identified, no pneumothorax apparent. CARDIOVASCULAR: Normal. OSSEOUS STRUCTURES: No significant abnormalities. VISUALIZED UPPER ABDOMEN: Normal. OTHER FINDINGS: None. IMPRESSION: No active disease.
[2016-11-17 09:35] LABS: TROPONIN I 2.33 ng/mL
[2016-11-17] MEDS ORDERED: Enoxaparin 80 mg Syringe SC STA (09:45)
[2016-11-17] MEDS ORDERED: Enoxaparin 80 mg Syringe SC SCH (10:00)
[2016-11-17] MEDS ORDERED: Non Formulary Medication (Rosuvastatin Calcium [Crestor] 10 MG) PO SCH (10:00)
[2016-11-17] MEDS: Nitroglycerin 2% Ointment Foilpak UD TOP SCH ×3 (10:16→21:36)
--- NOTE | 2016-11-17 10:26 | CON ---
DATE: 11/17/2016 ADDENDUM TYPE OF DICTATION: Addendum to the initial consult. REASON FOR ADDENDUM: ER called. The troponin is 2.33 while on , it was 0.43. IMPRESSION: The patient is still having chest pain, so we will treat it as unstable angina and follo w up serial CPK, troponin. Continue Lovenox, beta ami, nitrates and follow CPK, troponin. If tr oponin trends up, we will consider cardiac catheterization. Otherwise, most likely secondary to smal l vessel disease. Depending upon troponin trend. If the troponin trends down, we will treat medical ly. We will get echo to assess left ventricular function. We will follow with you. Thank you, Dr. Lopez, for providing us the opportunity in taking care of the patient. We will co ntinue aspirin and Plavix. Continue atorvastatin, beta ami and nitrates and Lovenox. Nini Ga MD cc: [id number] TT: 11/17/2016 10:26:22 Confirmation # [id number] Dictation # [id number] en
--- NOTE | 2016-11-17 10:40 | CON ---
DATE: 11/17/2016 REASON FOR CONSULTATION AND FOLLOWUP: Chest pain, history of cardiac catheterization, [id number] myocardial infarction recently. BRIEF CLINICAL HISTORY: This is a 61-year-old male with a past medical history significant for coron chantelle artery disease, status post PTCA of ramus intermedius on 07/21/2014. Then, the patient had a rep eat PTCA of the ramus and obtuse marginal 1 on 11/28/2014 who recently admitted 11/13/2016 with shortne ss of breath, chest pain. The patient subsequently underwent cardiac catheterization, found to be distal small vessel disease, major epicardials okay, RPDA and PLV branches and ramus intermedius branch has stenosis, not suitable for PCI, medical treatment recommended. The patient was discharged home. Admitted again on Thursday, came to the ER with complaint of dizziness, was discharged home. The patient said yesterday he kept on burping and chest pain associated with burping. After burping , the patient's chest pain relieved. This morning, he felt good, so came to the Emergency Room . Initial troponin is pending. PAST MEDICAL HISTORY: Significant for coronary artery disease, cardiomyopathy, ischemic and nonische viviane, secondary to alcohol-related disease, history of PTCA of ramus intermedius 07/21/ , history of repeat stenting 11/28/2014 in obtuse marginal 1 and ramus. Recent catheterization on 11/13/2016 william ws major epicardial coronaries are okay, but branch of ramus as well as PLV branch high grade stenosi s, not suitable for PCI, medical treatment recommended. PREVIOUS CARDIAC WORKUP: Recent most cardiac workup, patient had a cardiac catheterization on 017 that shows patent stents in ramus intermedius and obtuse marginal 1, small vessel disease involvi ng upper division of ramus intermedius and lower division of RPDA and PLV branch, which is a small ca liber vessel, less than 1.5 mm in diameter, not suitable for PCI, mildly decreased LV function, eject ion fraction 45%, EDP was in the range of 18-20, heavy atherosclerotic burden noted in all coronaries . The patient had echocardiography also in 2014. SOCIAL HISTORY: Active tobacco abuse, active alcohol abuse. CURRENT MEDICATIONS: The patient is taking Crestor 10 mg, Plavix 75 mg, amlodipine and oxycodone. REVIEW OF SYSTEMS: As per HPI. PHYSICAL EXAMINATION: VITAL SIGNS: Temperature afebrile, heart rate 75, blood pressure . HEENT: PERRLA. Extraocular muscles intact. NECK: Supple. No carotid bruits. No thyromegaly. CHEST: Clear to auscultation. HEART: S1, S2 regular. ABDOMEN: Soft. EXTREMITIES: Clubbing, cyanosis negative. BLOOD WORKUP: WBC 12.1, hemoglobin 13.8, hematocrit .6, platelet count 269. Chemistry shows so dium 138, potassium 4.2, chloride 100, carbon dioxide 22, anion gap of 20, BUN 14, creatinine 0.8. C PK 293. Troponin pending. Total protein 9, albumin 4.6, albumin/globulin ratio 1.1. IMPRESSION: Recurrent chest pain, status post cardiac catheterization 11/14/2016, major epicardials o lula, small vessel disease involving upper division of ramus intermedius and posterior left ventricle and posterior descending artery branch. EKG shows no acute ST-T changes. RECOMMENDATION: Follow up CPK, troponin. Consider GI workup. Depending upon the troponin, will heather p under observation. If troponin remains flat or trending down, we will consider GI workup. Further recommendation upon the availability of troponin. We will follow with you. Thank you, Dr. Lopez, for providing us the opportunity in taking care of the patient. Nini Ga MD cc: [id number] TT: 11/17/2016 10:23:39 Confirmation # [id number] Dictation # [id number] en 11/17/2016 09:39:04
[2016-11-17] MEDS: Simethicone 40 mg/0.6 ml Liquid (30 ml) PO SCH ×4 (11:22→21:35)
--- NOTE | 2016-11-17 12:53 | CARD ---
APPROVED REPORT EKG Measurement Heart [id number] <Conclusion> Normal sinus rhythm Inferioro Lateral Wall infarct, age undetermined ST_T Changes.
[2016-11-17] MEDS ORDERED: Pneumococcal 23-Valent Vaccine IM ONE (14:15)
--- NOTE | 2016-11-17 14:28 | US ---
HISTORY: abdominal pain, r/o gallstones COMPARISON: None. TECHNIQUE: Sonographic evaluation of the abdomen. FINDINGS: LIVER: Measures 17.3 cm. Normal echogenicity of the liver parenchyma. No mass. No intrahepatic bile duct dilatation. GALLBLADDER: Unremarkable. No gallstones. COMMON BILE DUCT: Measures 5 mm. No stones. No dilatation. PANCREAS: Obscured by bowel gas RIGHT KIDNEY: Measures 10.4cm. Normal echogenicity. Simple cyst mid right kidney, 1.1 x 1.2 x 1.3 cm. No other mass. No calculus or hydronephrosis. LEFT KIDNEY: Measures 10.9cm. Normal echogenicity. No calculus, mass, or hydronephrosis. SPLEEN: Normal in size and contour. No mass. AORTA: Proximal and midabdominal aorta are obscured and abdominal bowel gas. Distal abdominal aorta normal in diameter. IVC: Unremarkable. OTHER FINDINGS: None. IMPRESSION: 1.3 cm simple mid right renal cortical cyst. Limited evaluation due to bowel gas as described. No other significant abnormality.
[2016-11-17 14:33] LABS: TROPONIN I 5.22 ng/mL
[2016-11-17] MEDS ORDERED: Phenylephrine 10 mg/ml Inj ONE (14:50)
[2016-11-17] MEDS ORDERED: Lidocaine 2% Inj (20ml) ONE (15:17)
[2016-11-17] MEDS ORDERED: Iohexol 350mgl/ml 50 ML ONE (15:18)
[2016-11-17] MEDS ORDERED: Iodixanol 320 mg/ml 150 ml Bottle IV ONE (15:18)
[2016-11-17] MEDS ORDERED: Midazolam 2 MG/2 ML VIAL ONE (15:26)
[2016-11-17] MEDS ORDERED: Enoxaparin 30 mg Syringe SC STA (15:42)
[2016-11-17] MEDS ORDERED: Eptifibatide 20 mg/10mL Inj IVP ONE (16:04)
[2016-11-17] MEDS ORDERED: Nitroglycerin 50mg in D5W 0 ML IV ONE (16:09)
[2016-11-17] MEDS ORDERED: Iodixanol 320 MG/ML 100 ML BOTTLE IV ONE (16:10)
--- NOTE | 2016-11-17 17:39 | CARD ---
APPROVED REPORT Procedure(s) performed: Left Heart Catheterization PTCA with Balloon Angioplasty of PLV Br HISTORY The patient is a 61 year-old male with a history of : previous VT (> 7 days), most recent EF: 45%. (EF Method: LVG), previous diagnostic cath, tobacco history() : The patient is a former smoker , previous PCI (The PCI date was 11/28/2014), hypertension , dyslipidemia , who has cath done on last thursday11/14/2016 and medical treatment for small vessel Diz was recommended, came today Thursday11/17/2013 with C/O chest pain and Rising Troponini, first 2.33 and repeat 5.3 so decided for urgent cath and possible PTCA if Needed. INDICATION The indication(s) include : unstable angina , non-STEMI . CASE TECHNIQUE The patient was brought emergently to the Cardiac Catheterization Laboratory in a fasting state and was prepped and draped in a sterile manner. The right femoral groin was infiltrated with 2% Lidocaine subcutaneous anesthesia. A 6 Fr x 11 cm Abby sheath was inserted into the right femoral artery without difficulty. Coronary angiography was performed using coronary diagnostic catheters. The left coronary system was accessed and visualized with a Diagnostic ,6 Fr JR 4 catheter. The right coronary system was accessed and visualized with a Diagnostic ,6 Fr JR 4 catheter. The left ventricle was accessed and visualized with a pigtail catheter. Left ventricular/Aortic Valve gradient assessed on pullback. Left ventriculogram was performed in GAMEZ projection. Pre-demployment femoral angiogram was performed . The patient tolerated the procedure well and there were no complications associated with the procedure. Vessel Analysis The patient's coronary anatomy is right dominant. The left main coronary artery is a large size vessel with diffuse calcification noted throughout this vessel and without significant stenosis. The left main trifurcates to the left anterior descending, circumflex, and ramus. The left anterior descending artery is a large size vessel with diffuse calcification noted throughout this vessel and with significant stenosis. There is a 40-50% stenosis in the ostial segment. mid LAD has 40-50% and Distal LAD 60-70% stenosis , but is diffusely diseased The first diagonal branch is a small size vessel with diffuse calcification noted throughout this vessel and without significant stenosis. The second diagonal branch is a small size vessel with diffuse calcification noted throughout this vessel and without significant stenosis. The circumflex artery is a medium size vessel with diffuse calcification noted throughout this vessel and without significant stenosis. The first obtuse marginal branch is a medium size vessel with diffuse calcification noted throughout this vessel and without significant stenosis. patent stent in mid segment The second obtuse marginal branch is a small size vessel with diffuse calcification noted throughout this vessel and without significant stenosis. The ramus intermedius artery is a medium size vessel with diffuse calcification noted throughout this vessel and without significant stenosis. Patent stent in Main Ramus intermedius,which also gives off a small branch <1.5 mm in diameter and has 95% stenosis, not suitable for stent. The right coronary artery is a large size vessel with diffuse calcification noted throughout this vessel and without significant stenosis. The right posterior descending artery is a medium size vessel with diffuse calcification noted throughout this vessel and without significant stenosis. R PDA divides into upper and lower Division , Lower Div has 80-90 % stenosis in mid segment ,<1.5 mm vessel not suitable for stenty. The right posterolateral branch is a medium size vessel with diffuse calcification noted throughout this vessel and with significant stenosis. There is a 100% stenosis in the mid segment. Which had 90% stenosis on previous cath and was not suitable for stent, so was left alone for medical treatment, which is occluded now and makes him symptomatic. Left Ventricle The left ventricle is normal in size with normal contractility. There was no cardiomyopathy. The left ventricular ejection fraction is estimated to be 55%. The left ventricular end diastolic pressure is 18-20 mmHg. There was no gradient across the aortic valve upon pullback. PCI Technique Lesion Anticoagulation was achieved with Lovenox. Percutaneous coronary intervention was performed on the first right posterior lateral segment. The lesion stenosis prior to intervention was 100% with MONA 0 flow. A 6 Fr AR 1 Guide Catheter was used to engage the ostium. BALLOON DILATION A Balloon catheter 2.0 x 20 mm Sprinter RX was inserted and inflated up to 6.00atm for 49seconds. Final angiography reveals 20-30 % stenosis with MONA 3 flow. COMMENTS Unable to take stent, so only POBA done Conclusion Small vessel Diz. Not significant change form cath three days ago, except PLV Br of RCA has occluded now ( had 90% stenosis and was thought not suitable for stenting ,so left alone for medical treatment) Preserved LV FX. Ef-55%, EDP-18-20 mmof Hg. Successful POBA of PLV Branch (unable to take stent) Recommendations Smoking Cessation Cardiac Rehabilitation ReferralDaily ASA with Plavix for at least one year Aggressive Medical TherapyCardiac Risk Reduction Program Weight Loss Reduction Program CC; DR. Chip Lopez MD
[2016-11-17] MEDS ORDERED: Sodium Chloride 0.9% 1,000 ML IV SCH (17:45)
[2016-11-17] MEDS: oxyCODONE 30 mg Immediate Release Tab PO PRN (18:47)
--- NOTE | 2016-11-17 19:20 | CON ---
DATE: 11/17/2016 Seen and examined in the Emergency Room earlier today. The was at the bedside. REQUEST FOR CONSULT: Rule out peptic ulcer disease. HISTORY OF PRESENT ILLNESS: This is a 61-year-old male with a past medical history of hypertension, coronary artery disease, hyperlipidemia and tobacco use. The patient came to the Emergency Room with complaints of midsternal chest pain and increase belching since last night. The patient reportedly took Gas-X with no relief. He previously had a cardiac catheterization on 11/14/2016 , which were reported to be patent with no significant underlying coronary artery disease. He did come to the Emergency Room on 11/15 with complaints of dizziness and lightheadedness. The patient was given meclizine in the Emergency Room and observed and on reevaluation his symptoms were resolved. He was discharged to follow up with primary doctor. The patient has also been complaining of cold-like symptoms for the past week. He currently denies any fever or chills, shortness of breath, nausea, vomiting, or abdominal pain. He does complain of burning in the chest though. He reports having an endoscopy many years ago, but unsure of the details. PAST MEDICAL HISTORY: Coronary artery disease with a history of PTCA. He had a recent cardiac catheterization on 11/14/2016 that showed patent stents. He is an active tobacco user and has a history of hypertension and hyperlipidemia. PAST SURGICAL HISTORY: He had cardiac catheterization with coronary stents x 3. SOCIAL HISTORY: The patient is a smoker. He does drink alcohol once per week. Denies any substance abuse. FAMILY HISTORY: Noncontributory at this time. MEDICATIONS: Reviewed as per MAR, is significant for Plavix. ALLERGIES: No known allergies. REVIEW OF SYSTEMS: Systems were reviewed with positive findings, see HPI. LABORATORY DATA: WBC is 12.1, H and H is 13.8 and 40.0, platelets are 269. PT is 10.9, INR is 1.01, PTT 27.3. Sodium 138, K is 4.2, chloride is 100, BUN 14, creatinine 0.8. Total bilirubin is 1.0, AST 85, ALT 36, alkaline phosphatase is 65. LDH is 644. His total creatinine kinase is 293. Troponin is elevated at 2.33, this has increased and CK-MB is 20.0. He had a chest x-ray on admission and that was negative for active pulmonary disease, negative for pleural effusion, no pneumothorax, no active disease. PHYSICAL EXAMINATION: VITAL SIGNS: Temperature 98.2, blood pressure 170/88, pulse 82, respirations 16 , 98 on room air. HEENT: Sclerae anicteric. NECK: Supple. CARDIAC: S1, S2. LUNGS: With decreased breath sounds but good air entry, no rales or wheeze. ABDOMEN: With bowel sounds, soft, nontender, no rebound, guarding, or organomegaly. EXTREMITIES: No edema. NEUROLOGIC: Awake, alert, and oriented. ASSESSMENT: This is a 61-year-old male with a history of coronary artery disease status post percutaneous transluminal coronary angioplasty and recent cardiac catheterization on Plavix, who came to the hospital with complaints of chest pain, history of myocardial infarction and he now is having elevating troponins, r/o cardiac ischemia, r/o PUD, r/o gallstones. PLAN: We will request for abdominal ultrasound to rule out any gallbladder pathology. Will place the patient on Pepcid 1 stat dose now then q.12 hours. The patient is noted to have elevating cardiac troponin. He is being followed by cardiology for further evaluation. We will continue to follow the patient closely and depending upon the patient's clinical course, make further recommendations. Thank you for this consult and for allowing us to participate in your patient's care. The patient was seen and the case discussed with Dr. Castro. Juanita REDD cc: [id number] TT: 11/17/2016 19:19:24 Confirmation # [id number] Dictation # [id number] ren AGUILAR
[2016-11-17 20:04] LABS: ADD MANUAL DIFF? NO
[2016-11-17 20:12] LABS: BASO # 0.02 K/mm3 (0.0-2.0); BASO % 0.1 % (0.0-3.0); EOS % 0.1 % (1.5-5.0); GRAN # 10.88 (1.4-6.5); GRAN % 79.7 % (50.0-68.0); HEMATOCRIT 37.6 % (42.0-52.0); LYMPH # 1.3 (1.2-3.4); LYMPH % 9.8 % (22.0-35.0); MEAN CELL VOLUME 79.8 fL (80.0-105.0); MEAN CORPUSCULAR HEMOGLOBIN 27.6 pg (25.0-35.0); MEAN CORPUSCULAR HGB CONC 34.6 g/dl (31.0-37.0); MEAN PLATELET VOLUME 8.8 fl (7.0-11.0); MONO # 1.4 (0.1-0.6); MONO % 10.3 % (1.0-6.0); PLATELET COUNT 234 10^3/uL (120.0-450.0); RED CELL DISTRIBUTION WIDTH 13.7 % (11.5-14.5); WHITE BLOOD COUNT 13.6 10^3/ul (4.5-11.0)
[2016-11-17 21:01] LABS: BLOOD UREA NITROGEN 12 mg/dL (7-21); CALCIUM 9.3 mg/dL (8.4-10.5); CARBON DIOXIDE 25 mmol/L (21-33); CHLORIDE 97 mmol/L (98-107); GFR AFRICAN-AMERICAN > 60; GLUCOSE,RANDOM 111 mg/dL (70-110); POTASSIUM 3.9 mmol/L (3.6-5.0); SODIUM 133 mmol/L (132-148)
[2016-11-17] MEDS: Famotidine 20mg/50ml 50 ML IVPB SCH (21:36)
[2016-11-18 03:15] LABS: TROPONIN I 14.5 ng/mL
[2016-11-18] MEDS: Nitroglycerin 2% Ointment Foilpak UD TOP SCH (03:27)
[2016-11-18 07:39] LABS: TROPONIN I 11.4 ng/mL
[2016-11-18 09:00] LABS: BLOOD UREA NITROGEN 13 mg/dL (7-21); CALCIUM 9.3 mg/dL (8.4-10.5); CARBON DIOXIDE 25 mmol/L (21-33); CHLORIDE 100 mmol/L (98-107); GFR AFRICAN-AMERICAN > 60; GLUCOSE,RANDOM 91 mg/dL (70-110); POTASSIUM 3.9 mmol/L (3.6-5.0); SODIUM 135 mmol/L (132-148)
--- NOTE | 2016-11-18 09:25 | CON ---
DATE: 11/17/2016 This patient was seen and evaluated earlier. This is an addendum to the GI consultation report dicta imtiaz by Juanita Anaya NP. Discussed with the patient. The patient was seen and evaluated in the ER. The patient's family was at bedside. Admitted with chest pain. The patient had an episode of chest pain and belching. The patient was found to have an elevated troponin level. He is status post card iac catheterization on 11/14/2016. No significant new lesions noticed. GI consultation was requeste d in view of this atypical chest pain. The patient does have elevated troponin levels. The patient went for repeat cardiac cath today. PHYSICAL EXAMINATION: Abdomen is soft. There is a mild tenderness present at the epigastric area. LABORATORY DATA: WBC count is elevated at 13.6. The troponin level is also elevated to 26.5. Requ est for ultrasound scan of the abdomen. PLAN: Get ultrasound scan of the abdomen. IV ____, IV Pepcid. Cardiology followup. Thank you very much for allowing us to participate in the care of the patient. Mine Castro MD cc: [id number] TT: 11/18/2016 08:33:36 Confirmation # [id number] Dictation # [id number] ut 11/18/2016 08:24:35
--- NOTE | 2016-11-18 10:12 | PN ---
DATE: 11/18/2016 REASON FOR CONSULTATION AND FOLLOWUP: Acute coronary syndrome, hig-RI-lzjuere myocardial infarction, coronary artery disease, status post PTCA, plain balloon angioplasty of PLV branch of RCA. BRIEF CLINICAL HISTORY: This is a 61-year-old male with past medical history significant for coronar y artery disease, status post PTCA of ramus 07/21/2014 and then repeat PTCA of ramus and OM1 11/28/2014 , recently admitted 11/15/2016 with shortness of breath, underwent cardiac catheterization and found t o be distal small vessel disease. Medical treatment recommended. The patient came twice to ER, firs t reason and second was chest pain. 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 Troponin is tren ding down, last night peaked up with angioplasty to 26.5. This morning, trended down to 11.4. The p atient is asymptomatic, feels better, says no chest pain on taking a deep breath. No burping. That was initial presentation. PHYSICAL EXAMINATION: VITAL SIGNS: Temperature afebrile, heart rate 80, blood pressure 133/69. HEENT: PERRLA. Extraocular muscles intact. NECK: Supple. No carotid bruits. No thyromegaly. CHEST: Clear to auscultation. HEART: S1, S2 regular. ABDOMEN: Soft. EXTREMITIES: Clubbing and cyanosis negative. LABORATORY DATA: Blood workup as follows: WBC pending. Last night was 13.6, hemoglobin 13, hematoc rit 37.6, platelet count 234. Chemistry this morning 135, potassium 3.9, chloride 100, carbon dioxid e 25, anion gap of 14, BUN 13, creatinine 0.9. Troponin this morning trended down to 11.4. EKG pend ing. IMPRESSION: Non-ST segment myocardial infarction, had a totally occluded posterior left ventricular branch, status post plain balloon angioplasty of posterior left ventricular branch of right coronary artery, distal small vessel disease, patent stent in the ramus, patent stent in obtuse marginal, acut e coronary syndrome, unstable angina, tobacco abuse, alcohol abuse, prediabetic, hypertension, hyperl ipidemia. RECOMMENDATION: Continue beta ami. Continue aspirin to baby aspirin 81 mg daily. Continue ator vastatin. Discontinue aspirin, discontinue nitroglycerin. We will change to Imdur while the patient is here. At home, Ranexa was given for small vessel disease. Continue Norvasc. Continue low dose of lisinopril, continue beta-ami, Coreg. Ambulate. If remains stable, we will discharge home t omorrow. Discussed with the patient. The patient again persistently willing to go home today. Ment ioned that he needs to stay and wait and see if any chest pain. Thank you, Dr. Lopez, for providing the opportunity in taking care of the patient. We will get e cho today to assess LV function. Nini Ga MD cc:Eric Lopez MD [phone] TT: 11/18/2016 10:12:09 Confirmation # [id number] Dictation # [id number] tn
[2016-11-18] MEDS: Famotidine 20mg/50ml 50 ML IVPB SCH ×2 (10:38→22:39)
--- NOTE | 2016-11-18 10:46 | HP ---
HISTORY OF PRESENT ILLNESS: The patient is a 61-year-old male who presents to the Emergency Room com plaining of chest pain. He had a coronary catheterization 3 days ago at which time he was found to h ave only small vessel disease; the larger arteries were patent. He was to be treated medically and w as discharged to home. Two days ago, the patient returned to the Emergency Room complaining of verti go. Once again, he was treated and discharged to home. This morning he awoke with retrosternal ches t pain. It was associated with shortness of breath; therefore, he presented to the Emergency Room, i s evaluated and admitted. PAST MEDICAL HISTORY: Positive for hypertension, coronary artery disease. He has chronic low back p ain which is treated with opioids. He denies nausea, vomiting. Admits to diaphoresis associated wit h the chest pain. ALLERGIES: He has no known medical allergies. MEDICATIONS: On admission is Plavix 75 mg, aspirin 81 mg, Crestor 10 mg, and Norvasc 5 mg. SOCIAL HISTORY: He has a history of cigarette smoking. He drinks alcohol occasionally. He is [facility]. REVIEW OF SYSTEMS: Otherwise, unremarkable. PHYSICAL EXAMINATION: GENERAL: The patient is seen in the Emergency Room. He looks rather uncomfortable from his chest pa in. He apparently received nitro paste on admission; however, this was removed for an echocardiogram which was already done. I asked the staff to replace the nitro paste. HEENT: Unremarkable. LUNGS: Clear to auscultation. The left anterior chest is tender on palpation. HEART: Regular, no murmurs are appreciated. ABDOMEN: Soft and nontender. EXTREMITIES: Free of cyanosis, clubbing or edema. NEUROLOGIC: The patient is awake and oriented with no focal neurological signs. The patient's is present at bedside in the Emergency Room. VITAL SIGNS: His blood pressure is 130/68, heart rate is 75. He is afebrile at 98.6 degrees Fahrenh eit. LABORATORY STUDIES: A white blood cell count is 12.1, hemoglobin and hematocrit are 13.8 and 40.0, p latelet count is 269. Sodium is 138, potassium 4.2, BUN and creatinine are 14 and 0.8 respectively. Nonfasting glucose is 99. His troponins are elevated at 2.33. CK is elevated at 293 with 6.8% MB f raction. The patient was evaluated by Dr. Ga. 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 His chest x-ray shows no acute disease. EKG shows regular sinus rhythm with a possible old inferior wall myocardial infarction and an age undetermined anterior wall myocardial i nfarction. Crow Lopez MD cc: [id number] TT: 11/18/2016 10:45:36 mn
[2016-11-18] MEDS: Simethicone 40 mg/0.6 ml Liquid (30 ml) PO SCH ×4 (10:55→22:17)
--- NOTE | 2016-11-18 11:22 | CARD ---
APPROVED REPORT EKG Measurement Heart [id number] <Conclusion> Normal sinus rhythm Inferior infarct, possibly acute T wave abnormality, consider anterolateral ischemia Abnormal ECG
--- NOTE | 2016-11-18 11:32 | CARD ---
APPROVED REPORT EKG Measurement Heart [id number] MI [id number] <Conclusion> Sinus rhythm with premature atrial complexes Inferior infarct, age undetermined T wave abnormality, consider lateral ischemia Abnormal ECG
--- NOTE | 2016-11-18 11:50 | CARD ---
APPROVED REPORT EXAM: Two-dimensional and M-mode echocardiogram with Doppler and color Doppler. 2D DIMENSIONS IVSd1.6 (0.7-1.1cm)LVDd4.8 (3.9-5.9cm) PWd1.5 (0.7-1.1cm)LVDs3.8 (2.5-4.0cm) FS (%) 21.5 %LVEF (%)43.7 (>50%) M-Mode DIMENSIONS Left Atrium (MM)3.20 (2.5-4.0cm)Aortic Root4.00 (2.2-3.7cm) Aortic Cusp Exc.2.30 (1.5-2.0cm) Aortic Valve AoV Peak Oihmmhwg948.0cm/sAoV VTI22.8cmAO Peak GR.6mmHg LVOT Peak Esxrvzac03.3cm/sLVOT VTI18.10cmAO Mean GR.4mmHg Mitral Valve MV E Ziwowpnm45.2cm/sMV A Humhmxnh78.8cm/sE/A ratio0.7 TDI Lateral E' Peak V7.90cm/sMedial E' Peak V6.43cm/sE/Lateral E'8.0 E/Medial E'9.8 Tricuspid Valve TR Peak Zsxpnmfp801yp/sTR Peak Gr.22mmHg LEFT VENTRICLE The left ventricle is normal size. There is mild concentric left ventricular hypertrophy. The systolic function is mildly impaired.EF-45% There is mild to moderate hypokinesis in the mid-anterolateral wall. Transmitral Doppler flow pattern is Grade III-reversible restrictive diastolic dysfunction. No left ventricle thrombus noted on this study. There is no ventricular septal defect visualized. There is no left ventricular aneurysm. There is no mass noted in the left ventricle. RIGHT VENTRICLE The right ventricle is normal size. There is normal right ventricular wall thickness. The right ventricular systolic function is normal. ATRIA The left atrium size is normal. The right atrium size is normal. The interatrial septum is intact with no evidence for an atrial septal defect. AORTIC VALVE The aortic valve is thickened but opens well. There is trace aortic regurgitation. There is no aortic valvular stenosis. There is no aortic valvular vegetation. MITRAL VALVE The mitral valve is thickened but opens well. Mitral regurgitation is trace to mild. There is no mitral valve stenosis. There is no evidence of mitral valve prolapse. TRICUSPID VALVE The tricuspid valve leaflets are thickened , but open well. There is trace to mild tricuspid regurgitation.RVSP-22 mmof Hg. There is no tricuspid valve stenosis. There is no tricuspid valve prolapse or vegetation. PULMONIC VALVE The pulmonic valve is borderline thickened. There is trace pulmonic valvular regurgitation. There is no pulmonic valvular stenosis. GREAT VESSELS The aortic root is normal in size. The ascending aorta is normal in size. The pulmonary artery is normal. The IVC is normal in size and collapses >50% with inspiration. PERICARDIAL EFFUSION There is no pleural effusion. There is no pericardial effusion. <Conclusion> The left ventricle is normal size. There is mild concentric left ventricular hypertrophy. The systolic function is mildly impaired.EF-45% There is trace aortic regurgitation. Mitral regurgitation is trace to mild. There is trace to mild tricuspid regurgitation.RVSP-22 mmof Hg.
--- NOTE | 2016-11-18 16:56 | PN ---
DATE: 11/18/2016 Seen and examined at the bedside earlier today. The patient went for stat cardiac catheterization ye sterday for elevating troponin. He was found to have distal small vessel disease. The patient had a cardiac catheterization yesterday and found to have the PLV branch occluded, so PTCA of PLV branch w as done with plain balloon angioplasty. It was a small vessel and could not take the stent. Current ly, the patient is chest pain free. No heartburn. The patient states he is feeling better. No ches t pains or shortness of breath. Denies any nausea, abdominal pain. His troponin is trending down. VITAL SIGNS: Temperature is 98.7, blood pressure is 113/67, pulse rate is 104, respirations 20. LABORATORY DATA: Sodium is 135, K is 3.9, chloride 100, BUN is 13, creatinine 0.9. His LDH is 646. Troponin is at 11.4, it is improved. The patient was sent for abdominal ultrasound and that was negative for any gallstones or bile duct d ilatations or stones. It did show a 1.3 simple right renal cortical cyst. PHYSICAL EXAMINATION: HEENT: Sclera is anicteric. NECK: Supple. CARDIAC: S1, S2. LUNGS: Clear. ABDOMEN: With bowel sounds, soft. No tenderness appreciated on palpation. EXTREMITIES: No edema to lower extremities. ASSESSMENT: The patient with non-ST segment myocardial infarction with totally occluded left ventric ular branch, status post plain balloon angioplasty; history of tobacco use, alcohol use, hypertension , hyperlipidemia, resolved heartburn, likely secondary to cardiac event. PLAN: As per cardiology, he is on aspirin. He is on Plavix. We will continue the GI prophylaxis of Pepcid. The patient is also on Zestril and Imdur, Coreg. The patient's symptoms have improved. Co ntinue his heart healthy diet as tolerated. The patient was seen and case discussed with Dr. Castro. Juanita Grullones IVANIA cc: [id number] TT: 11/18/2016 16:55:41 Confirmation # [id number] Dictation # [id number] sn
[2016-11-18] MEDS: oxyCODONE 30 mg Immediate Release Tab PO PRN (17:40)
--- NOTE | 2016-11-19 01:35 | PN ---
DATE: 11/18/2016 HISTORY OF PRESENT ILLNESS: The patient was seen this Thursday in room 273, bed 1 with his wif e at the bedside. He is out of bed, ambulatory, chest pain free and in good spirits. He feels marke amalia improved after cardiac catheterization. There is no longer burping, belching or having any type of chest discomfort, pressure or pain. PHYSICAL EXAMINATION: GENERAL: He is awake, alert and clear. LUNGS: Show good aeration. HEART: Nontachycardic. Respiratory efforts are normal. EXTREMITIES: Show no edema. IMPRESSION: Wonderful response post-cardiac catheterization. PLAN: Probable discharge tomorrow. Continue medications as above. The patient seems to be tolerati ng a statin at this time, but has a history of statin intolerance in the past. We will need to follo w closely. Eric Lopez MD cc: [id number] TT: 11/19/2016 01:34:42 Confirmation # [id number] Dictation # [id number] mn
[2016-11-19 06:39] VITALS: TEMP 98.8
[2016-11-19 08:14] LABS: ADD MANUAL DIFF? NO
[2016-11-19 08:21] LABS: BASO # 0.02 K/mm3 (0.0-2.0); BASO % 0.2 % (0.0-3.0); EOS # 0.1 (0.0-0.7); EOS % 0.5 % (1.5-5.0); GRAN # 6.84 (1.4-6.5); GRAN % 74.2 % (50.0-68.0); HEMATOCRIT 34.3 % (42.0-52.0); LYMPH # 1.3 (1.2-3.4); LYMPH % 13.6 % (22.0-35.0); MEAN CELL VOLUME 81.1 fL (80.0-105.0); MEAN CORPUSCULAR HGB CONC 33.2 g/dl (31.0-37.0); MONO # 1.1 (0.1-0.6); MONO % 11.5 % (1.0-6.0); PLATELET COUNT 234 10^3/uL (120.0-450.0); WHITE BLOOD COUNT 9.2 10^3/ul (4.5-11.0)
[2016-11-19 08:34] LABS: ALKALINE PHOSPHATASE 53 U/L (38-133); ALT/SGPT 32 U/L (7-56); AST/SGOT 48 U/L (15-59); BILIRUBIN,TOTAL 1.2 mg/dL (0.2-1.3); BLOOD UREA NITROGEN 19 mg/dL (7-21); CALCIUM 9.4 mg/dL (8.4-10.5); CARBON DIOXIDE 25 mmol/L (21-33); CHLORIDE 101 mmol/L (98-107); GFR AFRICAN-AMERICAN > 60; GLUCOSE,RANDOM 91 mg/dL (70-110); MAGNESIUM 2.3 mg/dL (1.7-2.2); PHOSPHOROUS 3.8 mg/dL (2.5-4.5); SODIUM 136 mmol/L (132-148)
--- NOTE | 2016-11-19 11:22 | PN ---
DATE: 11/19/2016 Seen and examined at the bedside this morning. He is eating breakfast. Denies any nausea, vomiting, abdominal pain, shortness of breath, chest pain or any further symptoms of heartburn. He is getting ready to go home. VITAL SIGNS: Temperature is 98.8, blood pressure 99/49, pulse 72, respirations 22. LABORATORY DATA: Today, WBC 9.2, H and H is 11.4 and 34.3, platelets are 234. Chem: Sodium 136, K 4.0, BUN is 19, creatinine is 1.0. LFTs are within normal limits. His mag is 2.3. His troponins gómez s decreased down to 5.00. PHYSICAL EXAMINATION: HEENT: Sclerae are anicteric. NECK: Supple. CARDIAC: S1, S2. LUNGS: Clear. ABDOMEN: With bowel sounds, soft. It is not tender. No organomegaly. ASSESSMENT: Non-ST myocardial infarction with totally occluded left ventricular branch, status post plain balloon angioplasty, history of tobacco use, alcohol use, resolved heartburn-like which was pro bably secondary to his cardiac event. This is improved. History of hypertension and hyperlipidemia. PLAN: The patient is on aspirin and Plavix. He is going to be discharged home today. He will follo w up with cardiology and PCP. I did discuss with the patient that, if he has any GI symptoms, he can follow up in our office p.r.n. He did have a colonoscopy about 5 years ago. No history of polyps. Discussed with the patient that he would benefit from elective outpatient colonoscopy in the future or if he has any change in bowel habits, also monitor for any bleeding. The patient was seen and katelynn e discussed with Dr. Castro. Juanita Grullones IVANIA cc: [id number] TT: 11/19/2016 11:21:56 Confirmation # [id number] Dictation # [id number] tn
[2016-11-19] MEDS: Famotidine 20mg/50ml 50 ML IVPB SCH (12:42)
[2016-11-19] MEDS: Simethicone 40 mg/0.6 ml Liquid (30 ml) PO SCH (12:42)
[2016-11-19 12:43] VITALS: PULSE 89
--- NOTE | 2016-11-19 12:46 | DS ---
REASON FOR CONSULTATION AND FOLLOWUP: Acute coronary syndrome, unstable angina, pyh-AX-[id number] myoca rdial infarction. BRIEF CLINICAL HISTORY: This is a 61-year-old male with past medical history significant for coronar y artery disease status post PTCA 07/21/2014 of the ramus intermedius, then patient had PTCA on 11/28 of OM-1 and ramus. Recently patient came in with unstable angina, [id number]-[id number] myocardial in farction, status post PTCA with plain balloon angioplasty of PLV branch. Troponin was 26.5. Now, e troponin is trending down; today it is 5. The patient is fairly stable. Denies any chest pain, sh ortness of breath with walking. PHYSICAL EXAMINATION: VITAL SIGNS: Temperature afebrile, heart rate 73, blood pressure 99/49. HEENT: PERRLA. Extraocular muscles intact. NECK: Supple. No carotid bruits. No thyromegaly. CHEST: Clear to auscultation. HEART: S1, S2 regular. ABDOMEN: Soft. EXTREMITIES: Clubbing and cyanosis negative. BLOOD WORKUP: WBC 9.2, hemoglobin 11.4, hematocrit 34.3, platelet count 234. Chemistry shows sodium 130, potassium 4, chloride 101, carbon dioxide 25, anion gap of 14, BUN 19, creatinine 1.0. Troponi n is 5.0. IMPRESSION: Hok-DE-wsimmdk myocardial infarction, coronary artery disease, status post percutaneous transluminal coronary angioplasty. PLAN: Discharge patient home. Continue current medication including Coreg 6.25, aspirin 81 mg daily . Continue atorvastatin. Continue ramipril 2.5 mg. Continue Plavix. The patient will start Ranexa at home. FINAL DIAGNOSES: Acute coronary syndrome, kjq-[id number] myocardial infarction. PROCEDURES THIS ADMISSION: Left heart catheterization and plain balloon angioplasty of large posteri or left ventricular branch. Thank you Dr. Lopez, for providing the opportunity in taking care of this patient. Nini Ga MD cc:Eric Lopez MD [id number] TT: 11/19/2016 12:45:56 ut
--- NOTE | 2016-11-19 12:50 | CARD ---
APPROVED REPORT EKG Measurement Heart [id number] <Conclusion> Normal sinus rhythm Possible Lateral infarct, age undetermined Inferior infarct, Age? Old? Consider right ventricular involvement in inferior wall infarct Abnormal ECG
[2016-11-19 13:47] VITALS: BP 126/80; RESP 18; O2SAT 98
== END 2016-11-19 13:52 | disposition home or self-care (01) | DRG 251 ==
LOC: ED 05:51 → OBSVTOIN 07:36 → ERH 07:36 → INTOOBSV 07:36 → ERH 13:38 → 2RSO 14:22
PROVIDERS: ADMIT Internal Medicine; ATTEND Internal Medicine
PROC: 02703ZZ Dilation of Coronary Artery, One Artery, Percutaneous Approach (ICD-10-PCS; principal; 2016-11-17)
PROC: 4A023N7 Measurement of Cardiac Sampling and Pressure, Left Heart, Percutaneous Approach (ICD-10-PCS; 2016-11-17)
PROC: B2051ZZ Plain Radiography of Left Heart using Low Osmolar Contrast (ICD-10-PCS; 2016-11-17)
PROC: B2011ZZ Plain Radiography of Multiple Coronary Arteries using Low Osmolar Contrast (ICD-10-PCS; 2016-11-17)
DX: I21.4 Non-ST elevation (NSTEMI) myocardial infarction (principal); I25.110 Atherosclerotic heart disease of native coronary artery with unstable angina pectoris; I10 Essential (primary) hypertension; I25.5 Ischemic cardiomyopathy; E78.5 Hyperlipidemia, unspecified; R73.03 Prediabetes; F17.200 Nicotine dependence, unspecified, uncomplicated; Z79.82 Long term (current) use of aspirin; Z95.5 Presence of coronary angioplasty implant and graft

== ENCOUNTER 2017-03-12 11:17 | Observation (INO) | payer OTHER ==
[2017-03-12 11:17] VITALS: PULSE 82
--- NOTE | 2017-03-12 11:35 | ED PDOC ---
Arrival/HPI - General Chief Complaint: Chest Pain Time Seen by Provider: 03/12/17 11:18 Historian: Patient - History of Present Illness Narrative History of Present Illness (Text): 03/12/17 11:20 A 61 year old male, whose past medical history includes SAD, status-post stents , and hypertension, presents to the emergency department complaining of shortness of breath. Patient notes waking up baseline this morning. Patient reports he began experiencing shortness of breath while driving to work. He went to a nearby hospital, [facility], but left AMA because he wanted to come to [facility] instead since his physicians are here. Patient has no other complaints at this time. PMD: Dr. Lopez Assessment Nurse: Dr. 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 Past Medical History - Provider Review Nursing Documentation Reviewed: Yes - Infectious Disease Hx of Infectious Diseases: None - Tetanus Immunization Tetanus Immunization: Unknown - Cardiac Hx Cardiac Disorders: Yes Hx Cardiac Arrhythmia: Yes Hx Hypertension: Yes - Pulmonary Hx Respiratory Disorders: No - Neurological Hx Neurological Disorder: No Hx Paralysis: No - HEENT Hx HEENT Disorder: Yes (WEARS RX GLASSES) - Renal Hx Renal Disorder: No - Endocrine/Metabolic Hx Endocrine Disorders: No - Hematological/Oncological Hx Blood Disorders: No Hx Blood Transfusions: No Hx Blood Transfusion Reaction: No - Integumentary Hx Dermatological Disorder: No - Musculoskeletal/Rheumatological Hx Musculoskeletal Disorders: Yes Hx Falls: Yes - Gastrointestinal Hx Gastrointestinal Disorders: No - Genitourinary/Gynecological Hx Genitourinary Disorders: No - Psychiatric Hx Psychophysiologic Disorder: No Hx Substance Use: No Other/Comment: hx ETOH abuse - Surgical History Hx Cardiac Catheterization: Yes Hx Coronary Stent: Yes (3) - Anesthesia Hx Anesthesia: Yes Hx Anesthesia Reactions: No Hx Malignant Hyperthermia: No - Suicidal Assessment Feels Threatened In Home Enviroment: No Family/Social History - Physician Review Nursing Documentation Reviewed: Yes Family/Social History: No Known Family HX Smoking Status: Former Smoker Hx Alcohol Use: Yes (once per week) Hx Substance Use: No Hx Substance Use Treatment: No Allergies/Home Meds Allergies/Adverse Reactions: Allergies No Known Allergies Allergy (Verified 11/15/16 12:04) Home Medications: Home Meds Medication Instructions Recorded Confirmed Atorvastatin [Lipitor] 40 mg PO DAILY 03/12/17 03/12/17 Cyclobenzaprine [Flexeril] 10 mg PO BID PRN 03/12/17 03/12/17 Lisinopril [Zestril] 2.5 mg PO DAILY 03/12/17 03/12/17 Losartan Potassium 50 mg PO DAILY 03/12/17 03/12/17 Meclizine [Antivert] 25 mg PO Q6 03/12/17 03/12/17 Meloxicam [Mobic] 15 mg PO DAILY 03/12/17 03/12/17 Oxycodone HCl [Roxicodone] 30 mg PO DAILY PRN 03/12/17 03/12/17 Ranolazine [Ranexa] 500 mg PO BID 03/12/17 03/12/17 Review of Systems - Physician Review All systems were reviewed & negative as marked: Yes - Review of Systems Constitutional: absent: Fevers, Night Sweats Respiratory: SOB Cardiovascular: absent: Chest Pain Gastrointestinal: absent: Abdominal Pain, Diarrhea, Nausea, Vomiting Neurological: absent: Headache, Dizziness Physical Exam Vital Signs Reviewed: Yes Vital Signs Temp Pulse Resp BP Pulse Ox 03/12/17 13:52 69 18 144/77 100 03/12/17 13:02 65 18 146/90 100 03/12/17 11:28 98.2 F 80 18 140/91 H 100 Temperature: Afebrile Blood Pressure: Normal Pulse: Regular Respiratory Rate: Normal Appearance: Positive for: Well-Appearing Pain Distress: None Mental Status: Positive for: Alert and Oriented X 3 - Systems Exam Head: Present: Atraumatic, Normocephalic Pupils: Present: PERRL Extroacular Muscles: Present: EOMI Conjunctiva: Present: Normal Mouth: Present: Moist Mucous Membranes Neck: Present: Normal Range of Motion Respiratory/Chest: Present: Clear to Auscultation, Good Air Exchange. No: Respiratory Distress, Accessory Muscle Use Cardiovascular: Present: Regular Rate and Rhythm, Normal S1, S2. No: Murmurs Abdomen: Present: Normal Bowel Sounds. No: Tenderness, Distention, Peritoneal Signs Back: Present: Normal Inspection Upper Extremity: Present: Normal Inspection. No: Cyanosis, Edema Lower Extremity: Present: Normal Inspection. No: Edema Neurological: Present: GCS=15, CN II-XII Intact, Speech Normal Skin: Present: Warm, Dry, Normal Color. No: Rashes Psychiatric: Present: Alert, Oriented x 3, Normal Insight, Normal Concentration Medical Decision Making ED Course and Treatment: 03/12/17 11:26 Impression: 61 year old male with shortness of breath. Physical exam is benign. Differential Diagnosis included but are not limited to: r/o acs, pe. Plan: -- EKG -- Chest X-ray -- Labs -- Urinalysis -- Reassess and disposition Progress Notes: EKG: Ordered, reviewed, and independently interpreted the EKG. Rate : 72 BPM Rhythm : NSR Interpretation : No ST-segment elevations or depressions, no T-wave inversions, normal intervals. Comparison : No previous EKG for comparison. 03/12/2017 11:48 Chest X-ray FINDINGS: LUNGS: No active pulmonary disease. PLEURA: No significant pleural effusion identified, no pneumothorax apparent. CARDIOVASCULAR: Normal. OSSEOUS STRUCTURES: No significant abnormalities. VISUALIZED UPPER ABDOMEN: Normal. OTHER FINDINGS: None. IMPRESSION: No active disease. 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 discussed with dr ga. will see pt. discussed with kellie nash as obs - Lab Interpretations Lab Results: 03/12/17 11:30 03/12/17 11:30 Lab Results 03/12/17 13:10: D-Dimer, Quantitative 0.27 03/12/17 11:30: Sodium 138, Potassium 4.0, Chloride 101, Carbon Dioxide 26, Anion Gap 15, BUN 14, Creatinine 0.9, Est GFR ( Amer) > 60, Est GFR (Non- Af Amer) > 60, Random Glucose 90, Calcium 9.9, Magnesium 2.0, Total Bilirubin 0.6, AST 31, ALT 29, Alkaline Phosphatase 62, Lactate Dehydrogenase 374, Total Creatine Kinase 68, Troponin I < 0.01 D, NT-Pro-B Natriuret Pep 407, Total Protein 8.3, Albumin 4.8, Globulin 3.5, Albumin/Globulin Ratio 1.4 03/12/17 11:30: PT 10.8, INR 1.00, APTT 25.2 03/12/17 11:30: WBC 8.1, RBC 4.91, Hgb 13.4 L, Hct 39.4 L, MCV 80.2, MCH 27.3, MCHC 34.0, RDW 14.1, Plt Count 282, MPV 8.9, Gran % 69.6 H, Lymph % (Auto) 22.2 , Kingfisher % (Auto) 6.7 H, Eos % (Auto) 1.1 L, Baso % (Auto) 0.4, Gran # 5.61, Lymph # 1.8, Kingfisher # 0.5, Eos # 0.1, Baso # 0.03 I have reviewed the lab results: Yes - RAD Interpretation Radiology Orders: 03/12/17 11:26 CHEST PORTABLE [RAD] Stat - Scribe Statement The provider has reviewed the documentation as recorded by the Kimberlyibcharlotte Driscoll Provider Scribe Attestation: All medical record entries made by the Scribe were at my direction and personally dictated by me. I have reviewed the chart and agree that the record accurately reflects my personal performance of the history, physical exam, medical decision making, and the department course for this patient. I have also personally directed, reviewed, and agree with the discharge instructions and disposition. Disposition/Present on Arrival - Present on Arrival Any Indicators Present on Arrival: No History of DVT/PE: No History of Uncontrolled Diabetes: No Urinary Catheter: No History of Decub. Ulcer: No History Surgical Site Infection Following: None - Disposition Have Diagnosis and Disposition been Completed?: Yes Diagnosis: Dyspnea Disposition: HOME/ ROUTINE Disposition Time: 13:38 Patient Problems: Current Active Problems Problem Status Onset Dyspnea Acute Condition: UNKNOWN Discharge Instructions (ExitCare): Chest Pain (ED), Dyspnea (ED) Additional Instructions: please follow up with your doctor. return to er with worsening symptoms or concerns. you are choosing to not be admitted to the hospital you are able to return to er with worsening symptoms at any time with any concern. Referrals: [employer] Fior Regeorgie, [Non-Staff] - Follow up with primary Nini Ga MD [Staff Provider] - Follow up with primary Forms: [employer] (Salvadorean)
[2017-03-12 11:43] LABS: ADD MANUAL DIFF? NO
[2017-03-12 11:48] LABS: BASO # 0.03 K/mm3 (0.0-2.0); BASO % 0.4 % (0.0-3.0); EOS # 0.1 (0.0-0.7); EOS % 1.1 % (1.5-5.0); GRAN # 5.61 (1.4-6.5); GRAN % 69.6 % (50.0-68.0); HEMATOCRIT 39.4 % (42.0-52.0); LYMPH # 1.8 (1.2-3.4); LYMPH % 22.2 % (22.0-35.0); MEAN CELL VOLUME 80.2 fl (80.0-105.0); MEAN CORPUSCULAR HEMOGLOBIN 27.3 pg (25.0-35.0); MEAN PLATELET VOLUME 8.9 fl (7.0-11.0); MONO # 0.5 (0.1-0.6); MONO % 6.7 % (1.0-6.0); PLATELET COUNT 282 10^3/uL (120.0-450.0); RED CELL DISTRIBUTION WIDTH 14.1 % (11.5-14.5); WHITE BLOOD COUNT 8.1 10^3/ul (4.5-11.0)
--- NOTE | 2017-03-12 11:50 | RAD ---
HISTORY: cp COMPARISON: 11/17/2016 FINDINGS: LUNGS: No active pulmonary disease. PLEURA: No significant pleural effusion identified, no pneumothorax apparent. CARDIOVASCULAR: Normal. OSSEOUS STRUCTURES: No significant abnormalities. VISUALIZED UPPER ABDOMEN: Normal. OTHER FINDINGS: None. IMPRESSION: No active disease.
[2017-03-12 11:59] LABS: PARTIAL THROMBOPLASTIN TIME 25.2 Seconds (23.7-30.8)
[2017-03-12 12:04] LABS: ALB/GLOB RATIO 1.4 (1.1-1.8); ALKALINE PHOSPHATASE 62 U/L (38-133); ALT/SGPT 29 U/L (7-56); AST/SGOT 31 U/L (15-59); BILIRUBIN,TOTAL 0.6 mg/dL (0.2-1.3); BLOOD UREA NITROGEN 14 mg/dL (7-21); CALCIUM 9.9 mg/dL (8.4-10.5); CARBON DIOXIDE 26 mmol/L (21-33); CHLORIDE 101 mmol/L (95-110); GFR AFRICAN-AMERICAN > 60; GLUCOSE,RANDOM 90 mg/dL (70-110); SODIUM 138 mmol/L (132-148); TOTAL PROTEIN 8.3 g/dL (5.8-8.3)
[2017-03-12 13:05] LABS: TROPONIN I < 0.01 ng/mL
--- NOTE | 2017-03-12 16:03 | CARD ---
APPROVED REPORT EKG Measurement Heart [id number] [place] [id number] <Conclusion> Normal sinus rhythm Inferior infarct, age undetermined ST & T wave abnormality, consider lateral ischemia Abnormal ECG
[2017-03-12 16:37] VITALS: BMI 27.0
[2017-03-12] MEDS ORDERED: Pneumococcal 23-Valent Vaccine IM ONE (16:37)
[2017-03-12] MEDS ORDERED: oxyCODONE 10 mg Immediate Release Tab PO PRN (17:18)
[2017-03-12] MEDS ORDERED: Enoxaparin 80 mg Syringe SC STA (19:15)
[2017-03-12 20:28] LABS: TROPONIN I < 0.01 ng/mL
[2017-03-12] MEDS: Sucralfate 1 gm/10 ml Oral Susp UD PO SCH (22:35)
[2017-03-13 04:55] LABS: ADD MANUAL DIFF? NO
[2017-03-13 05:34] LABS: BASO # 0.01 K/mm3 (0.0-2.0); BASO % 0.2 % (0.0-3.0); EOS # 0.1 (0.0-0.7); GRAN # 4.13 (1.4-6.5); HEMATOCRIT 39.8 % (42.0-52.0); LYMPH # 1.7 (1.2-3.4); LYMPH % 26.5 % (22.0-35.0); MEAN CELL VOLUME 80.6 fl (80.0-105.0); MEAN CORPUSCULAR HEMOGLOBIN 27.1 pg (25.0-35.0); MEAN CORPUSCULAR HGB CONC 33.7 g/dl (31.0-37.0); MONO # 0.4 (0.1-0.6); MONO % 6.3 % (1.0-6.0); PLATELET COUNT 251 10^3/uL (120.0-450.0); RED CELL DISTRIBUTION WIDTH 14.3 % (11.5-14.5); WHITE BLOOD COUNT 6.4 10^3/ul (4.5-11.0)
[2017-03-13] MEDS: Sucralfate 1 gm/10 ml Oral Susp UD PO SCH ×2 (06:34→11:45)
[2017-03-13 06:35] LABS: ALB/GLOB RATIO 1.4 (1.1-1.8); ALKALINE PHOSPHATASE 59 U/L (38-133); ALT/SGPT 26 U/L (7-56); AST/SGOT 25 U/L (15-59); BILIRUBIN,TOTAL 0.5 mg/dL (0.2-1.3); BLOOD UREA NITROGEN 12 mg/dL (7-21); CALCIUM 9.6 mg/dL (8.4-10.5); CARBON DIOXIDE 26 mmol/L (21-33); CHLORIDE 103 mmol/L (95-110); CHOLESTEROL 278 mg/dL (130-200); GFR AFRICAN-AMERICAN > 60; GLUCOSE,RANDOM 91 mg/dL (70-110); PHOSPHOROUS 3.5 mg/dL (2.5-4.5); POTASSIUM 4.2 mmol/L (3.6-5.0); SODIUM 139 mmol/L (132-148); TOTAL PROTEIN 7.5 g/dL (5.8-8.3)
[2017-03-13 06:50] VITALS: TEMP 98; O2SAT 99
--- NOTE | 2017-03-13 07:05 | CON ---
DATE: 03/12/2017 REASON FOR CONSULTATION: Chest discomfort, fluttering sensation in the chest, history of coronary artery disease, multiple stents. HISTORY OF PRESENT ILLNESS: Briefly, this is a 61-year-old male with a past medical history significant for coronary artery disease, status post PTCA of ramus on 07/21/2014; repeat PTCA of ramus in OM1 on 11/28/2014; recently admitted with acute coronary syndrome, non-STEMI, and underwent cardiac catheterization, distal vessel disease; medical treatment recommended. The patient readmitted with the chest pain, and troponin kept on increasing to the 2, so the patient underwent cardiac catheterization and PTCA of PLV branch of right coronary artery was done on 11/17/2016. Since then, the patient has remained fairly stable. This morning, the patient was going to work, and he turned on air condition of the car, but suddenly started breaking into sweat and felt that his heart is fluttering, so he pulled the car to the nearest hospital, [facility], but later on left AMA and came to the [facility]. Again in the medical center, the patient felt little fluttering sensation. Initial EKG showed atrial flutter versus sinus tach but carefully looked more likely atrial flutter with heart rate of 120. Repeat EKG, the patient has a normal sinus, heart rate of 60. The patient was again signing out AMA till the came and intervened and ripped the paper off for AMA and get admitted. He denies any chest pain. He says that when he walks he feels like fluttering sensation. So far, the patient is in normal sinus in telemetry. No episode of chest pain complained at this time. PAST MEDICAL HISTORY: Significant for coronary artery disease as mentioned, history of mild cardiomyopathy, history of multiple stents, history starts way back to ramus intermedius 07/21/2014 and repeat PTCA of ramus in OM1 on 11/28/2014. Recently on 11/17/2016, the patient had a plain balloon angioplasty of PLV branch of the small caliber vessels. The patient kept on increasing troponin and after that, the patient made asymptomatic. Previous cardiac workup as follows: Most recent cardiac catheterization the patient had on 11/17/2016 that showed a small vessel disease, not significant change from 3 days ago except PLV branch RCA was occluded and now has a 90% stenosis on the previous, not suitable for a stent, so the plain balloon angioplasty was done. Preserved LV function ejection fraction of 55%, EDP was in the range of 18 to 20 status post full PTCA with POBA. Plain balloon angioplasty was done, unable to take a stent down on the PLV branch. I advised to completely stop smoking, modifying his lifestyle risk factors and continue aspirin and Plavix. At that time, the cardiac catheterization revealed left so significant it bifurcated the LAD and circumflex, there is 40% to 50% stenosis in the ostial segment o f LAD, mid LAD 40% to 50%, distal LAD 60% to 70%, but diffusely diseased. Circumflex luminal irregularities but no flow obstructing stenosis noted. Ramus intermedius is diffusely diseased. Ramus intermedius also gives off small branch less than 1.5 mm in diameter and 95% of stenosis, not suitable for PCI. Right coronary artery is large caliber vessels, luminal irregularities noted. RPDA device into upper and lower division, lower division is 90% stenosis, less than 1.5-mm plain balloon angioplasty was done. The patient had echo also at that time, 11/18/2016, that showed ejection fraction of 45%, trace aortic regurgitation, [id number] mitral regurgitation, mild tricuspid regurgitation, RV systolic pressure 22. CURRENT MEDICATIONS: The patient is very noncompliant. He states that he is cutting all the medication to half including aspirin, losartan, meloxicam, lisinopril, and Plavix. ALLERGIES: NO KNOWN DRUG ALLERGIES. REVIEW OF SYSTEMS: As per HPI. PHYSICAL EXAMINATION VITAL SIGNS: Temperature afebrile, heart rate 64, and blood pressure 159/99. HEENT: PERRLA. Extraocular muscles intact. NECK: Supple. No carotid bruit or thyromegaly. CHEST: Clear to auscultation. HEART: S1 and S2 regular. ABDOMEN: Soft. EXTREMITIES: Clubbing and cyanosis negative. DIAGNOSTIC DATA: EKG shows normal sinus with T inversion on second EKG; first EKG looked like atrial flutter. Blood workup as follows: WBC 8.1, hemoglobin 13.4, hematocrit 39.4, platelet count 282. Chemistry shows sodium 138, potassium 4, chloride 101, carbon dioxide 26, anion gap of 15, BUN 14, creatinine 0.9. Troponin 0.01. IMPRESSION: Atrial flutter, cannot rule out underlying non-ST elevation myocardial infarction or acute coronary artery syndrome, borderline diabetes, hypertension, multiple stents in the past. History of smoking and questionable history of alcohol abuse. RECOMMENDATIONS: Load with Plavix. The patient is noncompliant with his medications, modifying himself. He is taking only one aspirin everyday and the rest of the medication he cut down into half because he thinks he does not need. Follow up CPK, troponin. If the troponin remains flat, possibly we will discharge home tomorrow. We will adjust the medications and put beta-ami to prevent him going into atrial flutter again. If troponin remains negative, we will ambulate the patient and see the heart rate response. Further recommendation will be made according to hospital course and initial findings and initial workup. We will follow with you. We will give a stat dose of 25 mg of metoprolol now and give 300 of Plavix also to load him because the patient is cutting and he is not taking medication according to himself whatever he thinks, very noncompliant patient. If the troponin turns out to keep on increasing, may consider cardiac catheterization. Otherwise, we will treat him medically. Discussed with the patient. Discussed with the patient's . We will treat him as an acute coronary syndrome. We will give 1 dose of Lovenox as well. Thank you Dr. Lopez for providing me the opportunity in taking care of the patient. Nini Ga MD
[2017-03-13 07:12] LABS: TROPONIN I < 0.01 ng/mL
[2017-03-13] MEDS ORDERED: Pantoprazole 40 mg EC Tab PO ONE (07:30)
[2017-03-13] MEDS ORDERED: Pantoprazole 40 mg EC Tab PO SCH (07:30)
--- NOTE | 2017-03-13 09:21 | HP ---
CHIEF COMPLAINT: Palpitations, flutter in chest, feeling poorly. 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 He reports a flutter feeling in his chest, rising up into his throat. He denied pain. He said there was no pain and tightness, squeezing, or pressure, just this fluttery feeling in his chest. It was not related to eating or swallowing, crushing his chest, squeezing his ribs, or moving his arms. The pain was reproducible by standing and twisting and perhaps swallowing or bending down, but he was uncertain. He went to the local emergency room, was treated, advised admission, he left against advice and came [facility] where he was evaluated. 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 PAST MEDICAL HISTORY: Significant for hypertension since 2012 and hyperlipidemia since 2012. Negative for diabetes, tuberculosis, asthma, seizure, gout, COPD, TIA, CVA, NH, or malignancies. PAST SURGICAL HISTORY: Significant for cardiac catheterization and stenting on 07/21/2014, balloon angioplasty without stenting in 11/2014. ALLERGIES: He says he is sensitive to LIPITOR and ALL THE STATINS causing him severe myalgias. FAMILY HISTORY: His mother of leukemia at age 49 and diabetes. His father at age 70 from coronary artery disease. He is the youngest of 3 siblings, one brother of heart disease at age 51, one brother is alright in [place]. He is , no children with the current marriage and one son from the prior marriage. SOCIAL HISTORY: He continues to smoke half to one pack cigarettes per day. He occasionally drinks alcohol, as well as coffee. He has stress test in 2011 and 2013. REVIEW OF SYSTEMS: Otherwise unremarkable except for that of admission symptoms that may be related to items mentioned above. PHYSICAL EXAMINATION GENERAL: The patient was seen this evening in room 270, bed 2. The patient was resting in bed comfortable in no acute distress. I stood with him and he reproduced his palpitation, flutter like symptoms; but at all the time held a normal pause, regular with occasional premature contractions. HEENT: Head and neck are unremarkable. Conjunctivae pink. Mucous membranes are moist. NECK: Supple with no masses, no JVD. Thyroid is not palpable. CARDIOPULMONARY: Regular, not tachycardiac. LUNGS: Clear to auscultation and percussion with a prolonged expiratory phase, but no rales or rhonchi. ABDOMEN: Soft, nontender. EXTREMITIES: Shows no edema. IMPRESSION: 1. Palpitations and chest discomfort in a patient with history of coronary artery disease and multitude of risk factors including hyperlipidemia, hypertension, and tobacco use. 2. Hypertension. 3. Hyperlipidemia. PLAN: The patient admitted to medical floor, will be treated with nitrates and beta blockers, cardiology consult by Dr. Vidales and his team is appreciated. We will watch him on the monitor overnight to see if there is any continued arrhythmias and if there is anything more, any further interventions will be needed at this point. Eric Lopez MD
--- NOTE | 2017-03-13 09:34 | CARD ---
APPROVED REPORT EKG Measurement Heart [id number] [place] [id number] <Conclusion> Sinus bradycardia Inferior infarct, age undetermined T wave abnormality, consider lateral ischemia Abnormal ECG
[2017-03-13 12:26] VITALS: BP 150/89; PULSE 98; RESP 18
--- NOTE | 2017-03-13 14:29 | PN ---
DATE: 03/13/2017 REASON FOR THE CONSULTATION: Follow up chest discomfort, fluttering sensation in the chest, history of coronary artery disease, multiple stent and angioplasty, admitted with A-flutter, converted to normal sinus. Briefly, the patient denies any chest pain, shortness of breath, any palpitation. OBJECTIVE: Lying flat in the bed. Telemetry normal sinus mady. PHYSICAL EXAMINATION: VITAL SIGNS: As follows; temperature afebrile, heart rate 66, blood pressure 140/80. HEENT: PERRLA. Extraocular muscles intact. NECK: Supple. No carotid bruit. No thyromegaly. CHEST: Clear to auscultation. HEART: S1 and S2 regular. ABDOMEN: Soft. EXTREMITIES: Clubbing and cyanosis negative. LABORATORY DATA: Blood work as follows; WBC 6.5, hemoglobin 13.5, hematocrit 39.8, platelet count 251. Chemistry shows sodium 139, potassium 4.2, chloride 103, carbon dioxide 26, anion gap of 14.2, creatinine 0.9. Troponin 0.01, 0.01 x3 negative. Triglycerides 212, cholesterol is 270, LDL is 270, HDL 40, TSH is 2.6. IMPRESSION: A 61-year-old male with a past medical history significant for coronary artery disease with multiple stents. Last coronary intervention in 10/2016 where a plain balloon angioplasty of the PLV branch was done, unable to take the stent, admitted with fluttering sensation in the chest at [facility], patient signed out and came to the [facility]. Fast EKG shows A-flutter with 2:1 conduction, converted to normal sinus. The patient was given Lopressor p.o., since then the patient is fairly stable, denies any chest pain or shortness of breath. No evidence of acute myocardial infarction, no evidence of acute coronary syndrome. RECOMMENDATIONS: Discontinue Coreg, continue metoprolol 25 b.i.d., increase atorvastatin to 40 mg daily, continue baby aspirin, continue losartan. Discussed with the patient, patient is okay to go home. The patient was noncompliant with medications, cutting clopidogrel to half and taking Coreg also half pills. Emphasis made for compliance with the medication, we will discuss with the . We will discuss with you. Thank you Dr. Lopez for providing me opportunity in taking care of Ryan Land. Also discussed with the nurse taking care of the patient and a prescription left in the chart for metoprolol 25 mg b.i.d. No further cardiac workup is planned or warranted. Nini Ga MD
--- NOTE | 2017-03-14 04:12 | DS ---
HISTORY OF PRESENT ILLNESS: The patient is a 61-year-old male with a known past medical history positive for hypertension, hyperlipidemia, status post cardiac catheterization and stent placement in 2013, balloon angioplasty in 2015. HE IS KNOWN TO BE ALLERGIC TO LIPITOR AND ALL THE STATING WHICH CAUSE SEVERE MYALGIAS who was admitted on 03/12 complaining of chest pain and shortness of breath. 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 Ga. His troponins were negative x3. This morning, his vital signs are stable. CBC and CMP are negative. EKG showed regular sinus rhythm with a possible old inferior wall myocardial infarction and nonspecific ST-T wave changes which has not changed. His chest x-ray at this hospitalization showed no acute disease. So, at this point, the patient is cleared for discharge by cardiology and he is being discharged home with a prescription for metoprolol tartrate to be taken twice a day. He is also to be taking sucralfate 1 g four times a day and ranitidine 150 mg twice a day for gastroesophageal reflux disease. He will be followed up with us in office 1 to 2 weeks post discharge. FINAL DIAGNOSES: 1. Chest pain. 2. History of coronary artery disease. 3. Hypertension. 4. Tobacco abuse. 5. Gastroesophageal reflux disease. Crow Lopez MD
== END 2017-03-13 15:45 | disposition home or self-care (01) ==
LOC: ED 11:17 → ERH 14:53 → 2RSO 16:30
PROVIDERS: ADMIT Internal Medicine; ATTEND Internal Medicine
DX: R07.9 Chest pain, unspecified (principal); I25.10 Atherosclerotic heart disease of native coronary artery without angina pectoris; I10 Essential (primary) hypertension; K21.9 Gastro-esophageal reflux disease without esophagitis; E78.5 Hyperlipidemia, unspecified; F17.210 Nicotine dependence, cigarettes, uncomplicated; I25.2 Old myocardial infarction; I42.9 Cardiomyopathy, unspecified; I48.92 Unspecified atrial flutter; Z79.02 Long term (current) use of antithrombotics/antiplatelets; Z79.1 Long term (current) use of non-steroidal anti-inflammatories (NSAID); Z79.82 Long term (current) use of aspirin; Z79.899 Other long term (current) drug therapy; Z80.6 Family history of leukemia; Z82.49 Family history of ischemic heart disease and other diseases of the circulatory system; Z83.3 Family history of diabetes mellitus; Z88.8 Allergy status to other drugs, medicaments and biological substances; Z95.5 Presence of coronary angioplasty implant and graft; Z87.898 Personal history of other specified conditions; R40.2412 Glasgow coma scale score 13-15, at arrival to emergency department; I08.3 Combined rheumatic disorders of mitral, aortic and tricuspid valves; Z91.19 Patient's noncompliance with other medical treatment and regimen; R73.03 Prediabetes; Z91.128 Patient's intentional underdosing of medication regimen for other reason
CPT/HCPCS: 36415; 71010; 80053; 80061; 82550; 83036; 83615; 83735; 83880; 84100; 84443; 84484; 85025; 85378; 85610; 85730; 93005; 96372; 99285; G0378; J1650

== ENCOUNTER 2018-11-26 11:54 | Inpatient (IN) | payer OTHER ==
[2018-11-26 11:54] VITALS: PULSE 82
[2018-11-26] MEDS ORDERED: Dextrose 50% SYRINGE Inj (50 ml) ONE (12:09)
[2018-11-26] MEDS ORDERED: Enoxaparin 80 mg Syringe SC STA (12:24)
[2018-11-26 12:27] LABS: BASO # 0.01 K/mm3 (0.0-2.0); BASO % 0.1 % (0.0-3.0); EOS # 0.1 (0.0-0.7); EOS % 1.1 % (1.5-5.0); HEMOGLOBIN 13.8 g/dL (14.0-18.0); LYMPH % 19.6 % (22.0-35.0); MEAN CELL VOLUME 81.4 fl (80.0-105.0); MEAN CORPUSCULAR HEMOGLOBIN 27.3 pg (25.0-35.0); MEAN CORPUSCULAR HGB CONC 33.6 g/dl (31.0-37.0); MEAN PLATELET VOLUME 9.1 fl (7.0-11.0); MONO # 0.7 (0.1-0.6); MONO % 6.9 % (1.0-6.0); RBC 5.05 10^6/uL (3.5-6.1); RED CELL DISTRIBUTION WIDTH 14.2 % (11.5-14.5); WHITE BLOOD COUNT 10.2 10^3/uL (4.5-11.0)
[2018-11-26] MEDS ORDERED: Dextrose 50% SYRINGE Inj (50 ml) IVP ONE (12:28)
--- NOTE | 2018-11-26 12:32 | ED PDOC ---
Arrival/HPI - General Chief Complaint: Dizziness/Lightheaded Historian: Patient, Family - History of Present Illness Narrative History of Present Illness (Text): 11/26/18 12:29 Patient is a 63 yo male, past medical history of CAD with prior hx of [place], card iac stents, presents to the Emergency Department today stating that while at work this morning he became dizzy and sweaty and felt suddenly short of breath. He states that symptoms have now resolved although he notes that he has been having "gas pain" "for a few months" where he will "eat something and then belch and feel better". He does state at times that "gas pain" is worse with walking although patient denies any pain currently. He states that he "felt fine" when he woke up this morning. He states he took his aspirin, plavix, and beta ami already this morning prior to arrival. Denies neck pain or back pain. Denies arm pain. Past Medical History - Provider Review Primary Care Provider: Eric Lopez - Infectious Disease Hx of Infectious Diseases: None - Tetanus Immunization Tetanus Immunization: Unknown - Cardiac Hx Cardiac Disorders: Yes (cad) Hx Cardiac Arrhythmia: (pt denies arrythmia) Hx [place]: Yes Hx Hypertension: Yes Other/Comment: 2 stents 2/3 yrs ago, 1 stent 1 yr ago - Pulmonary Hx Respiratory Disorders: No - Neurological Hx Dizziness: Yes Other/Comment: vertigo 10 yrs ago, was here 4 months ago for dizziness pt stated " I was misdiagnosed with vertigo" but not 10 yrs ago - HEENT Hx HEENT Disorder: Yes (WEARS RX GLASSES) - Renal Hx Renal Disorder: No - Endocrine/Metabolic Hx Endocrine Disorders: No - Hematological/Oncological Hx Blood Disorders: No - Integumentary Hx Dermatological Disorder: No - Musculoskeletal/Rheumatological Hx Falls: Yes (past) - Gastrointestinal Hx Gastrointestinal Disorders: No - Genitourinary/Gynecological Hx Genitourinary Disorders: No - Psychiatric Hx Psychophysiologic Disorder: No Hx Substance Use: No Other/Comment: hx ETOH abuse - Surgical History Hx Cardiac Catheterization: Yes (11/14/16 balooned) Hx Coronary Stent: Yes (3) - Anesthesia Hx Anesthesia: Yes Hx Anesthesia Reactions: No Hx Malignant Hyperthermia: No - Suicidal Assessment Feels Threatened In Home Enviroment: No Family/Social History Family/Social History: CAD/[place] Smoking Status: Former Smoker Hx Alcohol Use: Yes Hx Substance Use: No Hx Substance Use Treatment: No Allergies/Home Meds Allergies/Adverse Reactions: Allergies No Known Allergies Allergy (Verified 11/26/18 11:58) Home Medications: Home Meds Medication Instructions Recorded Confirmed Cyclobenzaprine [Flexeril] 10 mg PO BID PRN 03/12/17 11/26/18 Lisinopril [Zestril] 2.5 mg PO DAILY 03/12/17 11/26/18 Meloxicam [Mobic] 15 mg PO DAILY 03/12/17 11/26/18 Oxycodone HCl [Roxicodone] 30 mg PO DAILY PRN 03/12/17 11/26/18 Aspirin [Ecotrin] 81 mg PO DAILY 11/26/18 11/26/18 Carvedilol [Coreg] 6.25 mg PO DAILY 11/26/18 11/26/18 Clopidogrel [Plavix] 75 mg PO DAILY 11/26/18 11/26/18 Pravastatin Sodium [Pravachol] 10 mg PO DAILY 11/26/18 11/26/18 Review of Systems - Review of Systems Constitutional: Fatigue. absent: Fevers Eyes: absent: Vision Changes ENT: absent: Hearing Changes Respiratory: SOB Cardiovascular: Chest Pain, NAQVI. absent: Palpitations, Edema, Calf Pain Gastrointestinal: Abdominal Pain, Nausea. absent: Diarrhea Genitourinary Male: absent: Dysuria, Frequency Musculoskeletal: absent: Back Pain, Neck Pain Skin: absent: Rash Neurological: Dizziness. absent: Headache Endocrine: Diaphoresis Hemo/Lymphatic: absent: Easy Bleeding Psychiatric: absent: Depression Physical Exam Vital Signs Reviewed: Yes Vital Signs Temp Pulse Resp BP Pulse Ox 11/26/18 12:03 97.9 F 63 18 142/88 100 Temperature: Afebrile Appearance: Positive for: Non-Toxic Pain Distress: Mild Mental Status: Positive for: Alert and Oriented X 3 Finger Stick Blood Glucose: 39 - Systems Exam Head: Present: Atraumatic Pupils: Present: PERRL Extroacular Muscles: Present: EOMI Mouth: Present: Moist Mucous Membranes Pharnyx: No: ERYTHEMA Nose (Internal): Present: Normal Inspection Neck: Present: Normal Range of Motion. No: Meningeal Signs, JVD Respiratory/Chest: Present: Clear to Auscultation. No: Respiratory Distress Cardiovascular: Present: Regular Rate and Rhythm, Murmurs Abdomen: No: Tenderness, Distention Upper Extremity: No: Cyanosis, Edema Lower Extremity: No: Edema, CALF TENDERNESS Neurological: Present: Motor Func Grossly Intact, Normal Sensory Function Skin: Present: Diaphoretic Psychiatric: Present: Alert, Normal Insight, Normal Concentration Medical Decision Making ED Course and Treatment: 11/26/18 12:35 Patient with significant past cardiac history noted upon review of past admission in 2017 as well as 2015. He states he has "gas pain" on and off "for months". Today he denied any chest pain or abdominal pain but states that he suddenly became dizzy and lightheaded and sweaty while at work. He insists that is has resolved currently after multiple questioning. He is alert and oriented. His blood sugar is in the 30s. He denies hx of diabetes. AMP of D50 given. EKG reveals st and t wave changes in the anterolateral changes. This was compared to previous EKG. Suspect ischemia although patient denies pain currently. 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 Ga and EKG and symptoms and past visits reviewed. He admits to still smoking occasionally. Currently denies pain or shortness of breath. Labs pending. 11/26/18 12:55 Patient initial troponin unremarkable. Labs reviewed with family and patient. states that one hour prior to arrival when she talked to him on phone he was "in and out of it". He currently has no focal neurological symptoms and af ter D50 remains awake and alert. As he has significant past cardiac history, will admit to telemetry bed with close monitoring of symptoms, labs, cardiology consultation. HE REMAINS PAIN FREE AT THIS TIME. - RAD Interpretation Radiology Orders: 11/26/18 12:05 CHEST PORTABLE [RAD] Stat - Medication Orders Current Medication Orders: Dextrose (Dextrose 50% Inj) 50 ml IVP ONCE ONE Stop: 11/26/18 12:29 Discontinued Medications Enoxaparin Sodium (Lovenox) 80 mg SC STAT STA; Protocol Stop: 11/26/18 12:25 Disposition/Present on Arrival - Present on Arrival Any Indicators Present on Arrival: Yes History of DVT/PE: No History of Uncontrolled Diabetes: Yes Urinary Catheter: No History of Decub. Ulcer: No History Surgical Site Infection Following: None - Disposition Have Diagnosis and Disposition been Completed?: Yes Diagnosis: Chest pain, Hypoglycemia Disposition: HOSPITALIZED Disposition Time: 12:57 Patient Plan: Admission, Telemetry Condition: SERIOUS
[2018-11-26 12:35] LABS: INR 1.01; PARTIAL THROMBOPLASTIN TIME 29.2 Seconds (26.9-38.3); PROTHROMBIN TIME 11.4 SECONDS (9.4-12.5)
[2018-11-26 12:44] LABS: ALB/GLOB RATIO 1.2 (1.1-1.8); ALBUMIN 4.8 g/dL (3.0-4.8); ALT/SGPT 17 U/L (7-56); AST/SGOT 39 U/L (17-59); BLOOD UREA NITROGEN 17 mg/dL (7-21); GFR NON-AFRICAN AMERICAN > 60
--- NOTE | 2018-11-26 12:44 | RAD ---
Date of service: 11/26/2018 HISTORY: chest pain COMPARISON: 03/12/2017 TECHNIQUE: 1 view obtained. FINDINGS: LUNGS: No active pulmonary disease. PLEURA: No significant pleural effusion identified, no pneumothorax apparent. CARDIOVASCULAR: Aortic calcification Normal cardiac size. No pulmonary vascular congestion. OSSEOUS STRUCTURES: No significant abnormalities. VISUALIZED UPPER ABDOMEN: Normal. OTHER FINDINGS: None. IMPRESSION: No active disease.
[2018-11-26 12:48] LABS: B-TYPE NATRIURETIC PEPTIDE 392 pg/mL (0-450); TROPONIN I < 0.01 ng/mL
--- NOTE | 2018-11-26 14:09 | CP.PCM.CON ---
<Cristian Nelson - Last Filed: 11/26/18 15:42> History of Present Illness - History of Present Illness History of Present Illness: PGY6 GI Fellow Consult Note Patient is a 63yo male with PMHx significant for CAD s/p PCI x3, NSTEMI, HTN, hyperlipidemia, tobacco/EtOH use who presented to the ED for dizziness, lightheaded. The patient was at work today and was working outside when he noticed that he was sweating profusely . A short period of time later, he became dizzy and lightheaded. This prompted him to come to the ED for evaluation. The patient has a known history of CAD requiring intervention previously but denied and continues to deny any overt chest/arm/neck pain. He does admit to intermittent dyspnea on exertion. Our team was consulted for abdominal pain. The patient states that for the last 3 months he notes significant bloating each morning when waking up. After belching, symptoms are relieved. He has used OTC antacids such as Tums with little to no relief. Carbonated beverages make symptoms worse. Denies any nausea, vomiting, weight loss, postprandial symtpoms, change in bowel habits or rectal bleeding. Admits to endoscopic evaluation > 10 years ago but does not recall results. 12 system ROS performed and negative except where stated PMHx: See HPI PSHx: PCIx3 FHx: Mother/Father - DM and CAD Social: Admits to tobacco and EtOH use, denies illicit drug use Past Patient History - Infectious Disease Hx of Infectious Diseases: None - Tetanus Immunizations Tetanus Immunization: Unknown - Past Social History Smoking Status: Former Smoker - CARDIAC Hx Cardiac Disorders: Yes (cad) Hx Cardia Arrhythmia: (pt denies arrythmia) Hx Heart Attack: Yes Hx Hypertension: Yes Other/Comment: 2 stents 2/3 yrs ago, 1 stent 1 yr ago - PULMONARY Hx Respiratory Disorders: No - NEUROLOGICAL Hx Dizziness: Yes Other/Comment: vertigo 10 yrs ago, was here 4 months ago for dizziness pt stated " I was misdiagnosed with vertigo" but not 10 yrs ago - HEENT Hx HEENT Problems: Yes (WEARS RX GLASSES) - RENAL Hx Chronic Kidney Disease: No - ENDOCRINE/METABOLIC Hx Endocrine Disorders: No - HEMATOLOGICAL/ONCOLOGICAL Hx Blood Disorders: No - INTEGUMENTARY Hx Dermatological Problems: No - MUSCULOSKELETAL/RHEUMATOLOGICAL Hx Falls: Yes (past) - GASTROINTESTINAL Hx Gastrointestinal Disorders: No - GENITOURINARY/GYNECOLOGICAL Hx Genitourinary Disorders: No - PSYCHIATRIC Hx Psychophysiologic Disorder: No Hx Substance Use: No Other/Comment: hx ETOH abuse - SURGICAL HISTORY Hx Cardiac Catheterization: Yes (11/14/16 balooned) Hx Coronary Stent: Yes (3) - ANESTHESIA Hx Anesthesia: Yes Hx Anesthesia Reactions: No Hx Malignant Hyperthermia: No Meds Allergies/Adverse Reactions: Allergies Allergy/AdvReac Type Severity Reaction Status Date / Time No Known Allergies Allergy Verified 11/26/18 11:58 Physical Exam - Constitutional Appears: Non-toxic, No Acute Distress - Eye Exam Eye Exam: EOMI, PERRL - ENT Exam ENT Exam: Mucous Membranes Moist - Respiratory Exam Respiratory Exam: Clear to Auscultation Bilateral. absent: Rales, Rhonchi, Wheezes - Cardiovascular Exam Cardiovascular Exam: RRR, +S1, +S2 - GI/Abdominal Exam GI & Abdominal Exam: Normal Bowel Sounds, Soft. absent: Distended, Firm, Guarding, Organomegaly, Rigid, Tenderness - Extremities Exam Extremities exam: Positive for: normal inspection. Negative for: pedal edema - Neurological Exam Neurological exam: Alert, Oriented x3 - Psychiatric Exam Psychiatric exam: Normal Affect, Normal Mood - Skin Skin Exam: Dry, Warm Results - Vital Signs Recent Vital Signs: Last Vital Signs Temp 97.9 F 11/26/18 12:03 Pulse 63 11/26/18 12:03 Resp 18 11/26/18 12:03 BP 142/88 11/26/18 12:03 Pulse Ox 100 11/26/18 12:03 - Labs Result Diagrams: 11/26/18 12:09 11/26/18 12:09 Labs: Laboratory Results - last 24 hr 11/26/18 11/26/18 11/26/18 12:04 12:09 12:09 WBC 10.2 RBC 5.05 Hgb 13.8 L Hct 41.1 L MCV 81.4 MCH 27.3 MCHC 33.6 RDW 14.2 Plt Count 250 MPV 9.1 Neut % (Auto) 72.3 H Lymph % (Auto) 19.6 L [place] % (Auto) 6.9 H Eos % (Auto) 1.1 L Baso % (Auto) 0.1 Lymph # (Auto) 2.0 [place] # (Auto) 0.7 H Eos # (Auto) 0.1 Baso # (Auto) 0.01 Absolute Neuts (auto) 7.36 H PT 11.4 INR 1.01 APTT 29.2 Sodium Potassium Chloride Carbon Dioxide Anion Gap BUN Creatinine Est GFR ( Amer) Est GFR (Non-Af Amer) POC Glucose (mg/dL) 39 L Random Glucose Calcium Magnesium Total Bilirubin AST ALT Alkaline Phosphatase Lactate Dehydrogenase Total Creatine Kinase Troponin I NT-Pro-B Natriuret Pep Total Protein Albumin Globulin Albumin/Globulin Ratio 11/26/18 12:09 WBC RBC Hgb Hct MCV MCH MCHC RDW Plt Count MPV Neut % (Auto) Lymph % (Auto) [place] % (Auto) Eos % (Auto) Baso % (Auto) Lymph # (Auto) [place] # (Auto) Eos # (Auto) Baso # (Auto) Absolute Neuts (auto) PT INR APTT Sodium 141 Potassium 3.9 Chloride 100 Carbon Dioxide 32 Anion Gap 12 BUN 17 Creatinine 0.9 Est GFR ( Amer) > 60 Est GFR (Non-Af Amer) > 60 POC Glucose (mg/dL) Random Glucose 35 L* D Calcium 10.0 Magnesium 2.3 H Total Bilirubin 0.8 AST 39 ALT 17 Alkaline Phosphatase 63 Lactate Dehydrogenase 461 Total Creatine Kinase 185 Troponin I < 0.01 NT-Pro-B Natriuret Pep 392 Total Protein 8.8 H Albumin 4.8 Globulin 3.9 Albumin/Globulin Ratio 1.2 Assessment & Plan - Assessment and Plan (Free Text) Assessment: Patient is a 63yo male with PMHx significant for CAD s/p PCI x3, NSTEMI, HTN, hyperlipidemia, tobacco/EtOH use who presented to the ED for dizziness, lightheaded -Dizziness/lightheadedness -Dyspnea on exertion -Hypoglycemia -Bloating -CAD s/p PCI -Chronic angina on Ranexa Plan: -Patient noted to be hypoglycemic on arrival (Glucose 35); symptoms have improved with supplementation, continue to monitor and defer w/u to primary service -Cardiac evaluation ongoing - no overt chest pain but dyspnea on exertion noted with dizziness/lightheadedness - R/O cardiac etiology -Once cardiac work up completed can evaluate for ongoing bloating in AM -Patient can be placed on PPI trial with Pantoprazole 40mg PO QAM for 3-4 weeks to evaluate for improvement in symptoms -If symptoms persist and cleared by cardiology, including holding antiplatelet therapy, would consider EGD for further evaluation -Cannot perform noninvasive eval for H pylori in setting of recent antacid use - Date & Time Date: 11/26/18 Time: 14:00 <Mine Castro V - Last Filed: 11/26/18 22:20> Meds - Medications Medications: Current Medications Atorvastatin Calcium (Lipitor) 10 mg PO DIN [facility] Carvedilol (Coreg) 3.125 mg PO BID [facility] Last Admin: 11/26/18 18:02 Dose: 3.125 mg Clopidogrel Bisulfate (Plavix) 75 mg PO DAILY [facility] Lisinopril (Zestril) 2.5 mg PO DAILY [facility] Metoprolol Tartrate (Lopressor) 25 mg PO BID [facility] Last Admin: 11/26/18 18:02 Dose: 25 mg Results - Vital Signs Recent Vital Signs: Last Vital Signs Temp 98.6 F 11/26/18 16:34 Pulse 75 11/26/18 21:31 Resp 18 11/26/18 21:31 BP 124/78 11/26/18 18:02 Pulse Ox 99 11/26/18 16:34 - Labs Result Diagrams: 11/26/18 12:09 11/26/18 12:09 Labs: Laboratory Results - last 24 hr 11/26/18 11/26/18 11/26/18 12:04 12:09 12:09 WBC 10.2 RBC 5.05 Hgb 13.8 L Hct 41.1 L MCV 81.4 MCH 27.3 MCHC 33.6 RDW 14.2 Plt Count 250 MPV 9.1 Neut % (Auto) 72.3 H Lymph % (Auto) 19.6 L [place] % (Auto) 6.9 H Eos % (Auto) 1.1 L Baso % (Auto) 0.1 Lymph # (Auto) 2.0 [place] # (Auto) 0.7 H Eos # (Auto) 0.1 Baso # (Auto) 0.01 Absolute Neuts (auto) 7.36 H PT 11.4 INR 1.01 APTT 29.2 Sodium Potassium Chloride Carbon Dioxide Anion Gap BUN Creatinine Est GFR ( Amer) Est GFR (Non-Af Amer) POC Glucose (mg/dL) 39 L Random Glucose Calcium Magnesium Total Bilirubin AST ALT Alkaline Phosphatase Lactate Dehydrogenase Total Creatine Kinase Troponin I NT-Pro-B Natriuret Pep Total Protein Albumin Globulin Albumin/Globulin Ratio 11/26/18 11/26/18 11/26/18 12:09 13:57 19:02 WBC RBC Hgb Hct MCV MCH MCHC RDW Plt Count MPV Neut % (Auto) Lymph % (Auto) [place] % (Auto) Eos % (Auto) Baso % (Auto) Lymph # (Auto) [place] # (Auto) Eos # (Auto) Baso # (Auto) Absolute Neuts (auto) PT INR APTT Sodium 141 Potassium 3.9 Chloride 100 Carbon Dioxide 32 Anion Gap 12 BUN 17 Creatinine 0.9 Est GFR ( Amer) > 60 Est GFR (Non-Af Amer) > 60 POC Glucose (mg/dL) 106 Random Glucose 35 L* D Calcium 10.0 Magnesium 2.3 H Total Bilirubin 0.8 AST 39 ALT 17 Alkaline Phosphatase 63 Lactate Dehydrogenase 461 Total Creatine Kinase 185 Troponin I < 0.01 < 0.01 NT-Pro-B Natriuret Pep 392 Total Protein 8.8 H Albumin 4.8 Globulin 3.9 Albumin/Globulin Ratio 1.2 Attending/Attestation - Attestation I have personally seen and examined this patient.: Yes I have fully participated in the care of the patient.: Yes I have reviewed all pertinent clinical information: Yes Notes (Text): This patient was seen and evaluated here earlier. This is an addendum to the GI consultation report dictated by the fellow. Patient does have dyspeptic symptoms of bloating. Now admitted with the hypoglycemic episode. Atypical chest pain symptoms. Etiology for the hypoglycemia is unclear Would benefit from 1.ultrasound of the abdomen 2 continue PPI 3. Would benefit from upper GI endoscopy after further optimization 11/26/18 22:18
[2018-11-26] MEDS ORDERED: Pneumococcal 23-Valent Vaccine IM ONE (22:01)
--- NOTE | 2018-11-27 | CON ---
DATE: 11/26/2018 CONSULT SERVICE: Cardiology REASON FOR CONSULTATION: Dizziness, lightheadedness, fasting blood sugar 30 on arrival, feeling very weak, history of multiple stents, history of myocardial infarction and non-ST segment elevation myocardial infarction in the past, cardiac evaluation. BRIEF CLINICAL HISTORY: This is a 63-year-old male with past medical history significant for coronary artery disease status post myocardial infarction, status post non-ST segment elevation myocardial infarction and status post multiple stents, came to the emergency room because of feeling very weak, lethargy, dizzy and lightheadedness. Last good meal was last night and did not eat till the patient got in the ambulance and got half a burger. On arrival to the emergency room, the patient's blood sugar was found to be 30. Denies any specific chest pain, but feels abdominal pain, gaseous distension and feels a lot better after burping. EKG shows some ST-T wave changes, lateral wall changes, but there is nothing new as compared to before. No definite history of severe chest pain. 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 While the patient came to the emergency room, they found his blood sugar at 35 on a SMA-7. The patient said the last time he had a good meal was last night, since then he did not eat till he got in the ambulance and he got half a burger. He denies any chest pain. PAST MEDICAL HISTORY: Significant for coronary artery disease, cardiomyopathy, ischemic and nonischemic secondary to alcohol abuse, history of percutaneous transluminal coronary angioplasty of ramus intermedius on 07/21/2016, history of multiple stents in the heart. PREVIOUS CARDIAC WORKUP: As follows; the patient had a last catheterization with stenting on 11/17/2016 and a plain balloon angioplasty of PLV branch was done. Prior to that, the patient had a percutaneous transluminal coronary angioplasty on 11/28/2014 and then on 11/14/2016. The patient had a cardiac catheterization on 11/14/2016 and denied to be treated medically because it was only the PLV branch; later on, the patient admitted with non-ST segment elevation myocardial infarction and a plain balloon angioplasty of PLV branch was done on 11/17/2016. Prior to that, the patient had multiple stents in the past. SOCIAL HISTORY: Active tobacco abuse, active alcohol abuse. CURRENT MEDICATION: The patient is taking at home Pravachol, oxycodone, metoprolol, meloxicam, lisinopril, Flexeril, Plavix and Coreg as well as aspirin. EKG shows normal sinus rhythm, lateral wall ST-T changes, when compared with previous no significant change noted. The patient has a last echocardiography dated 11/18/2016 that revealed ejection fraction of 45%, trace aortic regurgitation, vylsc-mo-vqnt mitral regurgitation, enivk-qy-qviq tricuspid regurgitation, right ventricular systolic pressure at 22. REVIEW OF SYSTEMS: As per history of present illness. The patient recently denied any chest pain, shortness of breath or palpitations except today. PHYSICAL EXAMINATION: As follows; GENERAL: Height of the patient 5 feet 11 inches, weight of the patient 175 pounds, body mass index 24.4 kg/m2. VITAL SIGNS: Temperature afebrile, heart rate 79, blood pressure 124/78. HEENT: PERRLA. Extraocular muscles intact. NECK: Supple. No carotid bruit or thyromegaly. CHEST: Clear to auscultation. HEART: S1, S2, regular. ABDOMEN: Soft. EXTREMITIES: Clubbing and cyanosis negative. LABORATORY DATA: WBC 10.2, hemoglobin 13.8, hematocrit 41.1, platelet count 250. Chemistry shows sodium 141, potassium 3.9, chloride 100, carbon dioxide 32, anion gap of 12, BUN 17, creatinine 0.9, blood sugar 35, troponin 0.01. IMPRESSION: A 63-year-old male with a past medical history significant for multiple stents, last angioplasty on 11/20/2016, a plain balloon angioplasty of posterior left ventricular branch was done, when the patient was admitted with non-ST segment elevation myocardial infarction. Prior to that and 3 days before, the patient had cardiac catheterization and medical treatment recommended. Prior to that, the patient had multiple stents in left anterior descending and circumflex, admitted after feeling very weak, lethargic, blood sugar found to be 35. Rule out underlying sepsis, rule out gastroesophageal reflux, rule out non-ST segment elevation myocardial infarction. RECOMMENDATION: We will follow up serial CPK, troponin. If the troponin hints that the patient has a coronary syndrome, then, we will proceed for cardiac catheterization. If the troponin remains flat, consider gastrointestinal workup and in the interim we will torres culture and look for etiology for hypoglycemia. In the interim, we will resume aspirin and Plavix. So if the patient is ruled in for myocardial infarction, we will continue and proceed for cardiac catheterization on Thursday, but if the patient is ruled out from myocardial infarction, consider gastrointestinal workup. We will also get a lipid profile, TSH, hemoglobin A1c and echo. Instructions made for complete cessation of smoking and abstinence of alcohol abuse. We will follow with you. Thank you Dr. Menezes for providing us the opportunity in taking care of the patient, Emery Davis. Nini Ga MD
[2018-11-27 08:08] LABS: BASO # 0.01 K/mm3 (0.0-2.0); BASO % 0.1 % (0.0-3.0); EOS # 0.1 (0.0-0.7); EOS % 1.5 % (1.5-5.0); HEMOGLOBIN 13.5 g/dL (14.0-18.0); LYMPH # 1.4 (1.2-3.4); LYMPH % 19.5 % (22.0-35.0); MEAN CELL VOLUME 81.6 fl (80.0-105.0); MEAN CORPUSCULAR HEMOGLOBIN 26.7 pg (25.0-35.0); MEAN CORPUSCULAR HGB CONC 32.8 g/dl (31.0-37.0); MEAN PLATELET VOLUME 9.4 fl (7.0-11.0); MONO # 0.6 (0.1-0.6); MONO % 8.2 % (1.0-6.0); RBC 5.05 10^6/uL (3.5-6.1); RED CELL DISTRIBUTION WIDTH 14.2 % (11.5-14.5); WHITE BLOOD COUNT 7.4 10^3/uL (4.5-11.0)
[2018-11-27 08:15] LABS: ALB/GLOB RATIO 1.2 (1.1-1.8); ALBUMIN 4.2 g/dL (3.0-4.8); ALT/SGPT 14 U/L (7-56); AST/SGOT 25 U/L (17-59); BLOOD UREA NITROGEN 13 mg/dL (7-21); CALCIUM 9.4 mg/dL (8.4-10.5); GFR NON-AFRICAN AMERICAN > 60; HDL CHOLESTEROL 47 mg/dL (29-60)
[2018-11-27 08:21] LABS: TROPONIN I < 0.01 ng/mL
[2018-11-27 08:22] LABS: LDL CHOLESTEROL 148 mg/dL (0-129)
[2018-11-27] MEDS ORDERED: oxyCODONE 30 mg Immediate Release Tab PO ONE (09:00)
--- NOTE | 2018-11-27 09:51 | CP.PCM.PN ---
Subjective - Date & Time of Evaluation Date of Evaluation: 11/27/18 Time of Evaluation: 06:58 - Subjective Subjective: Awake, alert, denies chest pain Reason for consultation and follow up: Cardiac follow up; history of coronary artery disease post cardiac stents, history of myocardial infarction, Non-STEMI, Admitted for hypoglycemia, lightheadedness,dizziness Seen and examined by me and Dr. Vidales Objective - Vital Signs/Intake and Output Vital Signs (last 24 hours): Temp Pulse Resp BP Pulse Ox 98.5 F 61 97 H 137/78 99 11/27/18 05:33 11/27/18 05:33 11/27/18 05:33 11/27/18 05:33 11/27/18 00:01 Intake and Output: 11/27/18 11/27/18 06:59 18:59 Intake Total 480 Output Total 550 Balance -70 - Medications Medications: Current Medications Atorvastatin Calcium (Lipitor) 10 mg PO DIN [facility] Carvedilol (Coreg) 3.125 mg PO BID [facility] Last Admin: 11/26/18 18:02 Dose: 3.125 mg Clopidogrel Bisulfate (Plavix) 75 mg PO DAILY [facility] Lisinopril (Zestril) 2.5 mg PO DAILY [facility] Metoprolol Tartrate (Lopressor) 25 mg PO BID [facility] Last Admin: 11/26/18 18:02 Dose: 25 mg - Labs Labs: 11/27/18 07:00 11/27/18 07:00 PT 11.4 SECONDS (9.4-12.5) 11/26/18 12:09 INR 1.01 11/26/18 12:09 APTT 29.2 Seconds (26.9-38.3) 11/26/18 12:09 - Constitutional Appears: Non-toxic, No Acute Distress - Head Exam Head Exam: NORMAL INSPECTION, NORMOCEPHALIC - Eye Exam Eye Exam: Normal appearance Pupil Exam: NORMAL ACCOMODATION - ENT Exam ENT Exam: Mucous Membranes Moist, Normal Exam - Respiratory Exam Respiratory Exam: Decreased Breath Sounds, Clear to Ausculation Bilateral, NORMAL BREATHING PATTERN - Cardiovascular Exam Cardiovascular Exam: REGULAR RHYTHM, +S1, +S2 - GI/Abdominal Exam GI & Abdominal Exam: Soft, Normal Bowel Sounds - Extremities Exam Extremities Exam: Full ROM, Normal Capillary Refill - Neurological Exam Neurological Exam: Alert, Awake, Oriented x3 - Psychiatric Exam Psychiatric exam: Normal Affect, Normal Mood - Skin Skin Exam: Dry, Normal Color, Warm Assessment and Plan - Assessment and Plan (Free Text) Assessment: A 63 year old male who came in to the ER due to dizziness, diaphoresis and lightheadedness. Blood glucose in ER showed 35mg/dl. Given D50 glucose in ER. Glucose stabilized. History of coronary artery disease post multiple stents (11/28/2014) last cardiac cath was 11/17/2016 and showed small vessel disease not significant change from cath 11/14/16 except PLV branch of RCA had 90% leni nosis, plain angioplasty of the posterior LV branch was done (not suitable for stent) LVEF 55%. Echo done on 11/18/16 showed LVEF 45 %,trace AR, trace to mild MR/TR, RVSP 22 mmHg. History of hyperlipidemia ,hypertension, alcohol and tobacco abuse.Still currently smokes. Denies chest pain. Denies shortness of breath. Troponin negative. EKG normal sinus rhythm,lateral wall ST-T changes, compared to previous study no significant change. Ruled out acute coronary syndrome. No evidence of myocardial infarction. Also complaining of bloating symptoms. GI on consult. PPI started. Work up in progress.For abdominal ultrasound. Feels better now. Cardiac status stable. Will repeat echo. May discharge from cardiac standpoint. discontinue telemetry. Plan: Feels better, denies chest pain Heart rate stable Blood pressure controlled Cardiac status stable On Lipitor 10 mg daily, Coreg 3.125 mg BID, Plavix 75 mg daily, Lisinopril 2.5 mg daily, Lopressor 25 mg BID Continue current treatment Continue current medications GI on consult, work up in progress For abdominal ultrasound May discharge from cardiac standpoint. Discontinue telemetry Follow up in office 2-3 weeks Will follow up Plan and treatment discussed with Dr. Vidales
[2018-11-27] MEDS ORDERED: PRAVASTATIN SODIUM 10 MG PO SCH (10:00)
--- NOTE | 2018-11-27 11:28 | CP.PCM.PN ---
<Zaina Kelly - Last Filed: 11/27/18 11:25> Subjective - Date & Time of Evaluation Date of Evaluation: 11/27/18 Time of Evaluation: 07:00 - Subjective Subjective: GI Fellow PGY5 Progress Note Pt seen and evaluated at bedside, pt denies any abdominal pain, N/V or constipation. reports did not eat in two days because too busy working and had hypoglycemia. ROS: A 12pt ROS was negative except as above. Objective - Vital Signs/Intake and Output Vital Signs (last 24 hours): Temp Pulse Resp BP Pulse Ox 98.5 F 69 97 H 139/84 99 11/27/18 05:33 11/27/18 10:47 11/27/18 05:33 11/27/18 10:47 11/27/18 00:01 Intake and Output: 11/27/18 11/27/18 06:59 18:59 Intake Total 480 Output Total 550 Balance -70 - Medications Medications: Current Medications Aspirin (Ecotrin) 81 mg PO DAILY [facility] Atorvastatin Calcium (Lipitor) 10 mg PO DIN [facility] Carvedilol (Coreg) 3.125 mg PO BID [facility] Last Admin: 11/27/18 10:47 Dose: 3.125 mg Clopidogrel Bisulfate (Plavix) 75 mg PO DAILY [facility] Last Admin: 11/27/18 10:45 Dose: 75 mg Lisinopril (Zestril) 2.5 mg PO DAILY [facility] Last Admin: 11/27/18 10:46 Dose: 2.5 mg Oxycodone HCl (Oxycodone Immediate Release Tab) 30 mg PO QAM [facility] Tamsulosin HCl (Flomax) 0.4 mg PO DAILY [facility] - Labs Labs: 11/27/18 07:00 11/27/18 07:00 PT 11.4 SECONDS (9.4-12.5) 11/26/18 12:09 INR 1.01 11/26/18 12:09 APTT 29.2 Seconds (26.9-38.3) 11/26/18 12:09 - Constitutional Appears: Non-toxic, No Acute Distress - Head Exam Head Exam: ATRAUMATIC, NORMAL INSPECTION, NORMOCEPHALIC - Eye Exam Eye Exam: EOMI, Normal appearance, PERRL Pupil Exam: PERRL - ENT Exam ENT Exam: Mucous Membranes Moist - Neck Exam Neck Exam: Full ROM - Respiratory Exam Respiratory Exam: Clear to Ausculation Bilateral, NORMAL BREATHING PATTERN - Cardiovascular Exam Cardiovascular Exam: REGULAR RHYTHM, RRR, +S1, +S2 - GI/Abdominal Exam GI & Abdominal Exam: Soft, Normal Bowel Sounds - Extremities Exam Extremities Exam: Full ROM, Normal Inspection - Back Exam Back Exam: NORMAL INSPECTION - Neurological Exam Neurological Exam: Alert, Awake, Oriented x3 - Psychiatric Exam Psychiatric exam: Normal Affect, Normal Mood - Skin Skin Exam: Dry, Intact, Normal Color, Warm Assessment and Plan - Assessment and Plan (Free Text) Assessment: Patient is a 63yo male with PMHx significant for CAD s/p PCI x3, NSTEMI, HTN, hyperlipidemia, tobacco/EtOH use who presented to the ED for dizziness, lightheaded -Dizziness/lightheadedness -Dyspnea on exertion -Hypoglycemia -Bloating -CAD s/p PCI -Chronic angina on Ranexa Plan: -Patient noted to be hypoglycemic on arrival (Glucose 35); symptoms have improved with supplementation, continue to monitor and defer to primary service -Cardiac evaluation ongoing - -Patient can be placed on PPI trial with Pantoprazole 40mg PO QAM for 3-4 weeks to evaluate for improvement in symptoms -If symptoms persist and cleared by cardiology, including holding antiplatelet therapy, would consider EGD for further evaluation -Abd US ordered to r/o any GI pathology -Will continue to follow pt closely <Mine Castro V - Last Filed: 11/27/18 21:35> Objective - Vital Signs/Intake and Output Vital Signs (last 24 hours): Temp Pulse Resp BP Pulse Ox 98.1 F 59 L 20 155/92 H 99 11/27/18 12:00 11/27/18 17:30 11/27/18 12:00 11/27/18 17:30 11/27/18 00:01 - Medications Medications: Current Medications Aspirin (Ecotrin) 81 mg PO DAILY [facility] Last Admin: 11/27/18 13:00 Dose: 81 mg Atorvastatin Calcium (Lipitor) 10 mg PO DIN [facility] Last Admin: 11/27/18 17:30 Dose: 10 mg Carvedilol (Coreg) 3.125 mg PO BID [facility] Last Admin: 11/27/18 17:30 Dose: 3.125 mg Clopidogrel Bisulfate (Plavix) 75 mg PO DAILY [facility] Last Admin: 11/27/18 10:45 Dose: 75 mg Lisinopril (Zestril) 2.5 mg PO DAILY [facility] Last Admin: 11/27/18 10:46 Dose: 2.5 mg Oxycodone HCl (Oxycodone Immediate Release Tab) 30 mg PO QAM [facility] Tamsulosin HCl (Flomax) 0.4 mg PO DAILY [facility] Last Admin: 11/27/18 13:00 Dose: 0.4 mg - Labs Labs: 11/27/18 07:00 11/27/18 07:00 PT 11.4 SECONDS (9.4-12.5) 11/26/18 12:09 INR 1.01 11/26/18 12:09 APTT 29.2 Seconds (26.9-38.3) 11/26/18 12:09 Attending/Attestation - Attestation I have personally seen and examined this patient.: Yes I have fully participated in the care of the patient.: Yes I have reviewed all pertinent clinical information, including history, physical exam and plan: Yes Notes (Text): This is an addendum to the GI progress report dictated by the fellow. The patient was seen and evaluated along with the GI fellow earlier today. Patient denies any abdominal pain on examination her abdomen was soft nontender Ultrasound scan was reviewed that showed gallstones no gallbladder wall thickening CBD normal. Patient has dyspeptic symptoms Rule out erosive esophagitis rule out Delgado's rule out peptic ulcer disease. Patient has a history of coronary artery disease cardiomyopathy. Cardiology note was reviewed. Patient would benefit from endoscopy evaluation. We will discuss with the cardiology if he is cleared he will be scheduled for EGD on Thursday Patient was found to be hypoglycemic with a sugar of 35. Etiology is unclear would benefit from insulin and C-peptide levels C-peptide levels, BHOB work-up for hypoglycemia. Discussed with the Dr. Domenico Lopez regarding further endocrinological evaluation Continue PPI Patient was taking NSAIDs before We will request CT of the abdomen and pelvis to further evaluate in view of this hypoglycemia rule out insulinoma and vague dyspeptic symptoms. Patient does have gallstones noticed in the sonogram. 11/27/18 21:31
[2018-11-27 14:39] LABS: PH,URINE 6.5 (4.7-8.0); URINE BILIRUBIN NEGATIVE (NEGATIVE); URINE BLOOD SMALL (NEGATIVE); URINE GLUCOSE (UA) NEGATIVE (NEGATIVE); URINE LEUKOCYTE ESTERASE NEGATIVE Leu/uL (NEGATIVE); URINE PROTEIN NEGATIVE mg/dL (<30 mg/dL); URINE UROBILINOGEN 0.2 E.U./dL (<1 E.U./dL)
[2018-11-27 14:41] LABS: URINE APPEARANCE CLEAR (CLEAR); URINE COLOR YELLOW (YELLOW)
[2018-11-27 14:51] LABS: URINE WBC 0 - 2 /hpf (0-6)
--- NOTE | 2018-11-27 15:24 | CARD ---
APPROVED REPORT Date of service: 11/27/2018 EXAM: Two-dimensional and M-mode echocardiogram with Doppler and color Doppler. INDICATION Chest Pain 2D DIMENSIONS Left Atrium (2D)4.4 (1.6-4.0cm)IVSd1.3 (0.7-1.1cm) LVDd5.1 (3.9-5.9cm)PWd1.4 (0.7-1.1cm) LVDs4.2 (2.5-4.0cm)FS (%) 17.6 % LVEF (%)36.3 (>50%) M-Mode DIMENSIONS Aortic Root3.90 (2.2-3.7cm)Aortic Cusp Exc.2.00 (1.5-2.0cm) Aortic Valve AoV Peak Hcfurquq529.0cm/Ralph Peak GR.6mmHg Mitral Valve MV E Auoeihmf85.8cm/sMV A Llztqbhu07.3cm/sE/A ratio0.7 TDI Lateral E' Peak V8.97cm/sMedial E' Peak V6.53cm/sE/Lateral E'5.8 E/Medial E'7.9 Pulmonary Valve PV Peak Sxwscraa14.6cm/sPV Peak Grad.2mmHg Tricuspid Valve TR Peak [id number]/sRAP [id number] Peak Gr.15mmHg [id number] LEFT VENTRICLE The left ventricle is normal size. There is mild concentric left ventricular hypertrophy. The systolic function is mildly to moderately impaired.EF35-40% There is moderate to severe hypokinesis in the basal inferoseptal wall. Transmitral Doppler flow pattern is Grade III-reversible restrictive diastolic dysfunction. No left ventricle thrombus noted on this study. There is no ventricular septal defect visualized. There is no left ventricular aneurysm. There is no mass noted in the left ventricle. RIGHT VENTRICLE The right ventricle is normal size. There is normal right ventricular wall thickness. The right ventricular systolic function is normal. ATRIA The left atrium is mildly dilated. The right atrium size is normal. The interatrial septum is intact with no evidence for an atrial septal defect. AORTIC VALVE The aortic valve is thickened but opens well. No aortic regurgitation is present. There is no aortic valvular stenosis. There is no aortic valvular vegetation. MITRAL VALVE The mitral valve is thickened but opens well. Mitral regurgitation is mild to moderate. There is no mitral valve stenosis. There is no evidence of mitral valve prolapse. TRICUSPID VALVE The tricuspid valve leaflets are thickened , but open well. There is trace to mild tricuspid regurgitation.RVSP-25 mmof Hg, There is no tricuspid valve stenosis. There is no tricuspid valve prolapse or vegetation. PULMONIC VALVE The pulmonary valve is normal in structure. There is no pulmonic valvular regurgitation. There is no pulmonic valvular stenosis. GREAT VESSELS The aortic root is normal in size. The ascending aorta is normal in size. The pulmonary artery is normal. The IVC is normal in size and collapses >50% with inspiration. PERICARDIAL EFFUSION There is no pleural effusion. There is no pericardial effusion. <Conclusion> There is moderate to severe hypokinesis in the basal inferoseptal wall. Mitral regurgitation is mild to moderate. There is trace to mild tricuspid regurgitation.RVSP-25 mmof Hg The IVC is normal in size and collapses >50% with inspiration. There is no pericardial effusion.
--- NOTE | 2018-11-27 16:24 | US ---
Date of service: 11/27/2018 HISTORY: r/o gallstones COMPARISON: None. TECHNIQUE: Sonographic evaluation of the abdomen. FINDINGS: LIVER: Measures 20.3 cm. Enlarged liver. Diffusely increased echogenicity of the liver parenchyma. Consistent with fatty infiltration. Smooth contour. No mass. No biliary ductal dilatation. Normal hepatopetal portal venous flow. GALLBLADDER: Cholelithiasis. No mural thickening or pericholecystic fluid. Negative sonographic Bauman sign. COMMON BILE DUCT: Measures 6 mm. No stones. No dilatation. PANCREAS: Suboptimally visualized. No gross abnormality. RIGHT KIDNEY: Measures 12.5cm. Normal echogenicity. Mid renal simple cortical cyst, 1.8 x 1.8 x 1.9 cm. No solid mass. No calculus or hydronephrosis. LEFT KIDNEY: Measures 11.6cm. Normal echogenicity. No calculus, mass, or hydronephrosis. SPLEEN: Normal in size and contour. No mass. AORTA: No aneurysmal dilatation. IVC: Unremarkable. OTHER FINDINGS: None. IMPRESSION: Cholelithiasis without sonographic evidence of cholecystitis. Mild hepatomegaly with fatty infiltration of the liver. 1.9 cm simple right renal cortical cyst.
--- NOTE | 2018-11-27 16:46 | RAD ---
Date of service: 11/27/2018 PROCEDURE: Radiographs of the Left Shoulder HISTORY: pain COMPARISON: No prior. TECHNIQUE: Four views obtained. FINDINGS: BONES: No fracture. Small globular calcification adjacent to the greater tuberosity consistent with calcific tendinitis. JOINTS: Unremarkable glenohumeral articulation. Mild acromioclavicular degenerative arthritis. SOFT TISSUES: Normal. OTHER FINDINGS: None. IMPRESSION: No fracture/dislocation. Mild acromioclavicular degenerative arthritis. Calcific tendinitis noted.
--- NOTE | 2018-11-27 23:33 | PN ---
DATE: 11/27/2018 SUBJECTIVE: The patient was seen this Thursday morning in room 271, bed 1 with his at bedside. He was hoping to go home, complaining of severe pain in his left shoulder. He also reported some decreased urine flow and difficulty. I spoke with him regarding any possible medication error and any one at home taking hypoglycemic medications, he does doubts this could be possible. PHYSICAL EXAMINATION GENERAL: Today, he is awake, alert and clear. LUNGS: Show good aeration, right and left. HEART: Regular, not tachycardic. ASSESSMENT AND PLAN: I spoke with learning and development consultant Dr. Vidales who says low probability any of the symptoms cardiac in origin, most likely related to hypoglycemia. Cultures are pending as part of the differential from his hypoglycemia. From speaking with the patient it seems there had been a dramatic decrease from his high sugar diet, and a period of not eating. This may have triggered this hypoglycemic episode. He is complaining of severe shoulder pain, so I will request an x-ray, MRI and orthopedic evaluation. We will add Flomax to his medication regimen in view of his URI symptoms of 4 time nocturia and decreased forcefulness to flow. I will ask the nurses to do a bladder scan after he voids this afternoon. We will continue to check fingerstick sugars a.c and at bedtime. I will resume his prior medication of oxycodone 30 mg immediate-release every a.m. and check the ultrasound of the abdomen that was done today as well as echocardiogram that was done. Eric Lopez MD LA[facility]
[2018-11-28 06:50] LABS: BLOOD UREA NITROGEN 13 mg/dL (7-21); CALCIUM 9.3 mg/dL (8.4-10.5); GFR NON-AFRICAN AMERICAN > 60
[2018-11-28 07:11] LABS: BASO # 0.02 K/mm3 (0.0-2.0); BASO % 0.3 % (0.0-3.0); EOS # 0.1 (0.0-0.7); EOS % 1.4 % (1.5-5.0); HEMOGLOBIN 13.2 g/dL (14.0-18.0); LYMPH # 1.5 (1.2-3.4); LYMPH % 22.1 % (22.0-35.0); MEAN CELL VOLUME 81.1 fl (80.0-105.0); MEAN CORPUSCULAR HEMOGLOBIN 26.5 pg (25.0-35.0); MEAN CORPUSCULAR HGB CONC 32.7 g/dl (31.0-37.0); MEAN PLATELET VOLUME 9.3 fl (7.0-11.0); MONO # 0.5 (0.1-0.6); MONO % 6.8 % (1.0-6.0); RBC 4.98 10^6/uL (3.5-6.1); RED CELL DISTRIBUTION WIDTH 14.4 % (11.5-14.5); WHITE BLOOD COUNT 6.9 10^3/uL (4.5-11.0)
--- NOTE | 2018-11-28 08:21 | CP.PCM.PN ---
Subjective - Date & Time of Evaluation Date of Evaluation: 11/28/18 Time of Evaluation: 06:53 - Subjective Subjective: Awake, alert, lying in bed, feels okay Reason for consultation and follow up: Cardiac follow up; history of coronary artery disease post cardiac stents, history of myocardial infarction, Non-STEMI, Admitted for hypoglycemia, lightheadedness,dizziness Seen and examined by me and Dr. Vidales Objective - Vital Signs/Intake and Output Vital Signs (last 24 hours): Temp Pulse Resp BP Pulse Ox 98.1 F 59 L 20 155/92 H 99 11/27/18 12:00 11/27/18 17:30 11/27/18 12:00 11/27/18 17:30 11/27/18 00:01 Intake and Output: 11/28/18 11/28/18 06:59 18:59 Intake Total 0 Balance 0 - Medications Medications: Current Medications Aspirin (Ecotrin) 81 mg PO DAILY [facility] Last Admin: 11/27/18 13:00 Dose: 81 mg Atorvastatin Calcium (Lipitor) 10 mg PO DIN [facility] Last Admin: 11/27/18 17:30 Dose: 10 mg Carvedilol (Coreg) 3.125 mg PO BID [facility] Last Admin: 11/27/18 17:30 Dose: 3.125 mg Clopidogrel Bisulfate (Plavix) 75 mg PO DAILY [facility] Last Admin: 11/27/18 10:45 Dose: 75 mg Lisinopril (Zestril) 2.5 mg PO DAILY [facility] Last Admin: 11/27/18 10:46 Dose: 2.5 mg Oxycodone HCl (Oxycodone Immediate Release Tab) 30 mg PO [facility] Tamsulosin HCl (Flomax) 0.4 mg PO DAILY [facility] Last Admin: 11/27/18 13:00 Dose: 0.4 mg - Labs Labs: 11/28/18 05:00 11/28/18 05:00 PT 11.4 SECONDS (9.4-12.5) 11/26/18 12:09 INR 1.01 11/26/18 12:09 APTT 29.2 Seconds (26.9-38.3) 11/26/18 12:09 - Constitutional Appears: Non-toxic, No Acute Distress - Head Exam Head Exam: NORMAL INSPECTION, NORMOCEPHALIC - Eye Exam Eye Exam: Normal appearance, PERRL - ENT Exam ENT Exam: Mucous Membranes Moist, Normal Exam - Respiratory Exam Respiratory Exam: Decreased Breath Sounds, Clear to Ausculation Bilateral, NORMAL BREATHING PATTERN - Cardiovascular Exam Cardiovascular Exam: +S1, +S2 - GI/Abdominal Exam GI & Abdominal Exam: Soft, Normal Bowel Sounds - Extremities Exam Extremities Exam: Full ROM, Normal Capillary Refill - Neurological Exam Neurological Exam: Alert, Awake, Oriented x3 - Psychiatric Exam Psychiatric exam: Normal Affect, Normal Mood - Skin Skin Exam: Dry, Normal Color, Warm Assessment and Plan - Assessment and Plan (Free Text) Assessment: A 63 year old male who came in to the ER due to dizziness, diaphoresis and lightheadedness. Blood glucose in ER showed 35mg/dl. Given D50 glucose in ER. Glucose stabilized. History of coronary artery disease post multiple stents (11/28/2014) last cardiac cath was 11/17/2016 and showed small vessel disease not significant change from cath 11/14/16 except PLV branch of RCA had 90% stenosis, plain angioplasty of the posterior LV branch was done (not suitable for stent) LVEF 55%. Echo done on 11/18/16 showed LVEF 45 %,trace AR, trace to mild MR/TR, RVSP 22 mmHg. History of hyperlipidemia ,hypertension, alcohol and tobacco abuse.Still currently smokes. Denies chest pain. Denies shortness of breath. Troponin negative. EKG normal sinus rhythm,lateral wall ST-T changes, compared to previous study no significant change. Ruled out acute coronary syndrome. No evidence of myocardial infarction. Also complaining of bloating symptoms. GI on consult. PPI started. Work up in progress. Echo done yesterday and showed moderate to severe hypokinesis in the basal inferoseptal wall, LVEF 35-40%, mild to moderate mitral regurgitation,trace to mild tricuspid regurgitation RVSP 25 mmHg. Left shoulder X ray done for pain and showed no fracture, degenerative arthritis,calcified tendinitis. US of abdomen showed cholelithiasis without cholecystitis. Denies chest pain or shortness of breath. No evidence of heart failure or myocardial ischemia. Cleared for endoscopy with moderate risk. No absolute contraindication for procedure. Cardiac status stable. Plan: For Endoscopy in Am Cleared for endoscopy with moderate risk. Cardiac status stable. Feels better, denies chest pain Heart rate stable Blood pressure controlled On Lipitor 10 mg daily, Coreg 3.125 mg BID,ASA 81 mg daily Plavix 75 mg daily, Lisinopril 2.5 mg daily, Lopressor 25 mg BID Hold Plavix and ASA today and tomorrow Continue current treatment Continue current medications GI on consult, work up in progress Will follow up Plan and treatment discussed with Dr. Vidales
[2018-11-28] MEDS: oxyCODONE 30 mg Immediate Release Tab PO SCH (09:34)
[2018-11-28] MEDS: Pantoprazole 40 mg EC Tab PO SCH (10:58)
--- NOTE | 2018-11-28 16:58 | CP.PCM.PN ---
Subjective - Date & Time of Evaluation Date of Evaluation: 11/28/18 Time of Evaluation: 14:15 - Subjective Subjective: Comfortable not in acute distress tolerating the diet Objective - Vital Signs/Intake and Output Vital Signs (last 24 hours): Temp Pulse Resp BP Pulse Ox 98.3 F 67 18 124/84 98 11/28/18 09:16 11/28/18 09:34 11/28/18 09:16 11/28/18 09:34 11/28/18 09:16 Intake and Output: 11/28/18 11/28/18 06:59 18:59 Intake Total 0 Balance 0 - Medications Medications: Current Medications Aspirin (Ecotrin) 81 mg PO DAILY [facility] Last Admin: 11/27/18 13:00 Dose: 81 mg Atorvastatin Calcium (Lipitor) 10 mg PO DIN [facility] Last Admin: 11/27/18 17:30 Dose: 10 mg Carvedilol (Coreg) 3.125 mg PO BID [facility] Last Admin: 11/28/18 09:33 Dose: 3.125 mg Clopidogrel Bisulfate (Plavix) 75 mg PO DAILY [facility] Last Admin: 11/27/18 10:45 Dose: 75 mg Lisinopril (Zestril) 2.5 mg PO DAILY [facility] Last Admin: 11/28/18 09:34 Dose: 2.5 mg Oxycodone HCl (Oxycodone Immediate Release Tab) 30 mg PO QAM [facility] Last Admin: 11/28/18 09:34 Dose: 30 mg Pantoprazole Sodium (Protonix Ec Tab) 40 mg PO ACB [facility] Last Admin: 11/28/18 10:58 Dose: 40 mg Tamsulosin HCl (Flomax) 0.4 mg PO DAILY [facility] Last Admin: 11/28/18 09:34 Dose: 0.4 mg - Labs Labs: 11/28/18 05:00 11/28/18 05:00 PT 11.4 SECONDS (9.4-12.5) 11/26/18 12:09 INR 1.01 11/26/18 12:09 APTT 29.2 Seconds (26.9-38.3) 11/26/18 12:09 - Constitutional Appears: Well, Non-toxic, No Acute Distress - Eye Exam Eye Exam: EOMI, PERRL - ENT Exam ENT Exam: Mucous Membranes Moist - Neck Exam Neck Exam: Full ROM. absent: Lymphadenopathy - Respiratory Exam Respiratory Exam: NORMAL BREATHING PATTERN. absent: Accessory Muscle Use, Rales - Cardiovascular Exam Cardiovascular Exam: REGULAR RHYTHM, +S1, +S2. absent: JVD - GI/Abdominal Exam GI & Abdominal Exam: Soft, Normal Bowel Sounds. absent: Tenderness, Mass - Extremities Exam Extremities Exam: absent: Calf Tenderness, Full ROM - Neurological Exam Neurological Exam: Alert, Awake, Oriented x3 Assessment and Plan - Assessment and Plan (Free Text) Assessment: This 63 the patient with a previous history of EtOH use a history of cardiomy opathy coronary artery disease status post PCI admitted with the diaphoresis and lightheadedness. Patient was found to be hypoglycemic with a blood sugar of 35. Patient also complaining of dyspeptic symptoms. Etiology for her dyspeptic symptoms which include peptic ulcer disease gastroesophageal reflux disease and cholelithiasis also to be considered. The ultrasound scan showed a gallstones. The patient may benefit from an upper GI endoscopy. He will be scheduled for EGD tomorrow Patient was admitted with the symptomatic hypoglycemia etiology is unclear we will discuss with the PCP regarding further endocrinological work-up Thank you Dr. Lopez for allowing us to participate in the care of the patient ,we will continue to closely follow-up his care and suggest further recommendations based on the clinical course
--- NOTE | 2018-11-28 21:50 | PN ---
DATE: 11/28/2018 SUBJECTIVE: The patient was seen this Thursday morning in room 373, bed 1. I sat and talk with him for some length of time. Shoulder x-ray was done as well as MRI. Abdominal ultrasound was done and is rather unremarkable. Labs show his sugars have been in the normal range with no further severe hypoglycemic episodes. He denies any chest pain or cardiac symptoms, palpitations, diaphoresis, dyspnea, etc. GERD and reflux symptoms continue to wax and wane. PHYSICAL EXAMINATION: LUNGS: Show good aeration right and left with moderate COPD, prolonged expiratory phase. Decreased breath sounds. HEART: Regular, not tachycardic. EXTREMITIES: Show no edema. IMPRESSION: 1. Hypoglycemic reaction. 2. Coronary artery disease. 3. Chest pain. 4. Reflux esophagitis, gastroesophageal reflux disease. 5. Calcific tendonitis left shoulder with suspected internal derangement. PLAN: The patient is scheduled for endoscopy tomorrow. He will probably be discharged after that with outpatient follow up with Orthopedics and routine outpatient Cardiology and medical follow up next week as well. Eric Lopez MD
--- NOTE | 2018-11-29 01:50 | HP ---
DATE OF EXAM: 11/26/2018 CHIEF COMPLAINT: Profuse diaphoresis, lightheadedness, dizziness, inability to drive, generalized pain, left chest and shoulder pain. HISTORY OF PRESENT ILLNESS: This is a 63-year-old man I have known for several years with a history of coronary artery disease, who was at work when he had an episode of profuse diaphoresis, grogginess, lethargy. He tried to drive himself home, but realized he could not drive because of extreme weakness, blurry vision and called the ambulance. The squad arrived and brought him to the emergency room. His sugar was found to be 35. He was given IV dextrose and recovered, but continued to complain of left shoulder pain and weakness as well as epigastric discomfort and abdominal distension and bloating. Because of his history of severe coronary artery disease, arrangements were made for him to be admitted. Cardiology and GI consultations were requested. PAST MEDICAL HISTORY: Significant for hypertension since 2012, hyperlipidemia since 2012, coronary artery disease with catheterization and stents placed on 07/21/2014 with a repeat balloon angioplasty with no stents in 2014. His last colonoscopy was in 2007. He had stress tests in 2011 and 2013. 2013, being abnormal and prompting the catheterization and stent placement. ALLERGIES: HE HAS NO ACUTE ALLERGIES TO MEDICATIONS, BUT REPORTS THAT LIPITOR CAUSED MYALGIAS. SOCIAL HISTORY: He smokes an occasional cigar. Drinks 2 to 3 drinks on a evening. Occasionally drinks coffee. FAMILY HISTORY: His mother at age 49 of diabetes and leukemia. His father at age 70 of coronary artery disease. He is the youngest of three siblings. He has two brothers, one who is alive in [place] and the other brother passed of heart disease at age 51. He is with one child, a son 38 years old from a prior marriage with whom the patient has lost contact, even though he lives only a few blocks away. MEDICATIONS AT HOME: Include pravastatin, Carvedilol, aspirin, Plavix, and oxycodone 30 mg daily. REVIEW OF SYSTEMS: Significant for abdominal discomfort, bloating, belching, especially worse after eating, and left shoulder pain with range of motion and lifting the arm with flexion and adduction. PHYSICAL EXAMINATION GENERAL: The patient was seen and admitted resting relatively comfortably at this time, only significant pain when he moves the left shoulder. HEENT: Otherwise unremarkable. Conjunctivae are pink. Mucous membranes are moist. NECK: Supple without masses. LUNGS: Clear. HEART: Regular and non-tachycardic. ABDOMEN: Soft and nontender. EXTREMITIES: No edema. IMPRESSION: 1. Sudden episode of profuse diaphoresis, weakness, and near syncope related to hypoglycemia noted in emergency room with fingerstick sugar of 35. 2. Hypoglycemia noted in emergency room with fingerstick sugar of 35. 3. History of coronary artery disease. 4. Abdominal pain, belching, epigastric discomfort, bloating, and burping. 5. Left shoulder pain. 6. Hypertension. 7. Hyperlipidemia. 8. History of coronary artery disease status post cardiac stent placed in 2013. PLAN: The patient will be admitted to medical floor, Cardiology consultation is called and also a Gastroenterology consultation will be called as well. After speaking with the patient, we will also x-ray the left shoulder, an MRI and ask for orthopedic evaluation. Eric Lopez MD
[2018-11-29 07:51] VITALS: O2SAT 98
--- NOTE | 2018-11-29 07:52 | CP.PCM.PN ---
Subjective - Date & Time of Evaluation Date of Evaluation: 11/29/18 Time of Evaluation: 06:45 - Subjective Subjective: Awake, alert, sitting side of bed, for EGD today Reason for consultation and follow up: Cardiac follow up; history of coronary artery disease post cardiac stents, history of myocardial infarction, Non-STEMI, Admitted for hypoglycemia, lightheadedness,dizziness Seen and examined by me and Dr. Ga Objective - Vital Signs/Intake and Output Vital Signs (last 24 hours): Temp Pulse Resp BP Pulse Ox 98.1 F 60 18 165/87 H 98 11/29/18 07:50 11/29/18 07:50 11/29/18 07:50 11/29/18 07:50 11/29/18 07:50 Intake and Output: 11/29/18 11/29/18 06:59 18:59 Intake Total 0 Balance 0 - Medications Medications: Current Medications Aspirin (Ecotrin) 81 mg PO DAILY [facility] Last Admin: 11/27/18 13:00 Dose: 81 mg Atorvastatin Calcium (Lipitor) 10 mg PO DIN [facility] Last Admin: 11/28/18 18:11 Dose: 10 mg Carvedilol (Coreg) 3.125 mg PO BID [facility] Last Admin: 11/28/18 18:12 Dose: 3.125 mg Clopidogrel Bisulfate (Plavix) 75 mg PO DAILY [facility] Last Admin: 11/27/18 10:45 Dose: 75 mg Lisinopril (Zestril) 2.5 mg PO DAILY [facility] Last Admin: 11/28/18 09:34 Dose: 2.5 mg Oxycodone HCl (Oxycodone Immediate Release Tab) 30 mg PO QAM [facility] Last Admin: 11/28/18 09:34 Dose: 30 mg Pantoprazole Sodium (Protonix Ec Tab) 40 mg PO ACB [facility] Last Admin: 11/28/18 10:58 Dose: 40 mg Tamsulosin HCl (Flomax) 0.4 mg PO DAILY [facility] Last Admin: 11/28/18 09:34 Dose: 0.4 mg - Labs Labs: 11/28/18 05:00 11/28/18 05:00 PT 11.4 SECONDS (9.4-12.5) 11/26/18 12:09 INR 1.01 11/26/18 12:09 APTT 29.2 Seconds (26.9-38.3) 11/26/18 12:09 - Constitutional Appears: Non-toxic, No Acute Distress - Head Exam Head Exam: NORMAL INSPECTION, NORMOCEPHALIC - Eye Exam Eye Exam: Normal appearance Pupil Exam: NORMAL ACCOMODATION - ENT Exam ENT Exam: Mucous Membranes Moist, Normal Exam - Respiratory Exam Respiratory Exam: Decreased Breath Sounds, Clear to Ausculation Bilateral, NORMAL BREATHING PATTERN - Cardiovascular Exam Cardiovascular Exam: +S1, +S2 - GI/Abdominal Exam GI & Abdominal Exam: Soft, Normal Bowel Sounds - Extremities Exam Extremities Exam: Full ROM, Normal Capillary Refill - Neurological Exam Neurological Exam: Alert, Awake, Oriented x3 - Psychiatric Exam Psychiatric exam: Normal Affect, Normal Mood - Skin Skin Exam: Dry, Normal Color, Warm Assessment and Plan - Assessment and Plan (Free Text) Assessment: A 63 year old male who came in to the ER due to dizziness, diaphoresis and lightheadedness. Blood glucose in ER showed 35mg/dl. Given D50 glucose in ER. Glucose stabilized. History of coronary artery disease post multiple stents (11/28/2014) last cardiac cath was 11/17/2016 and showed small vessel disease not significant change from cath 11/14/16 except PLV branch of RCA had 90% stenosis, plain angioplasty of the posterior LV branch was done (not suitable for stent) LVEF 55%. Echo done on 11/18/16 showed LVEF 45 %,trace AR, trace to mild MR/TR, RVSP 22 mmHg. History of hyperlipidemia ,hypertension, alcohol and tobacco abuse.Still currently smokes. Denies chest pain. Denies shortness of breath. Troponin negative. EKG normal sinus rhythm,lateral wall ST-T changes, compared to previous study no significant change. Ruled out acute coronary syndrome. No evidence of myocardial infarction. Also complaining of bloating symptoms. GI on consult. PPI started. Work up in progress. Echo done yesterday and showed moderate to severe hypokinesis in the basal inferoseptal wall, LVEF 35-40%, mild to moderate mitral regurgitation,trace to mild tricuspid regurgitation RVSP 25 mmHg. Left shoulder X ray done for pain and showed no fracture, degenerative arthritis,calcified tendinitis. US of abdomen showed ch olelithiasis without cholecystitis. Denies chest pain or shortness of breath. No evidence of heart failure or myocardial ischemia. Cleared for endoscopy with moderate risk. No absolute contraindication for procedure. Cardiac status stable. For Endoscopy today. Plan: For Endoscopy today NPO post midnight Cleared for endoscopy with moderate risk. Cardiac status stable. Feels better, denies chest pain Heart rate stable Blood pressure controlled On Lipitor 10 mg daily, Coreg 3.125 mg BID,ASA 81 mg daily Plavix 75 mg daily, Lisinopril 2.5 mg daily, Lopressor 25 mg BID Held Plavix and ASA for EGD Continue current treatment Continue current medications GI on consult, work up in progress Will follow up Plan and treatment discussed with
[2018-11-29] MEDS: Pantoprazole 40 mg EC Tab PO SCH (08:35)
[2018-11-29] MEDS ORDERED: Iodixanol 320 MG/ML 200 ML BOTTLE IV ONE (09:44)
[2018-11-29] MEDS ORDERED: Lidocaine PF 2% (5 ml) Inj (For Cardiac Arrhy) ONE (09:44)
[2018-11-29] MEDS: oxyCODONE 30 mg Immediate Release Tab PO SCH (10:00)
--- NOTE | 2018-11-29 10:44 | MRI ---
Date of service: 11/27/2018 PROCEDURE: MRI of the left shoulder without contrast HISTORY: pain COMPARISON: Plain films same day TECHNIQUE: MRI of the left shoulder was performed in multiple planes using multiple pulse sequences. FINDINGS: There is a full-thickness tear of the distal fibers of the supraspinatus measuring 19 mm wide by 5 mm height by 12 mm AP. The glenoid labrum is intact. There tendinopathy of the biceps tendon but no evidence of tear. Mild degenerative changes are seen in the acromioclavicular joint. There is no evidence of joint effusion. There is no marrow edema. The report concurs with the preliminary [facility] report IMPRESSION: Full-thickness tear of the distal fibers of the supraspinatus
[2018-11-29] MEDS ORDERED: Midazolam 2 MG/2 ML VIAL ONE ×2 (11:09→11:21)
--- NOTE | 2018-11-29 11:42 | CP.PCM.PN ---
<Cristian Nelson - Last Filed: 11/29/18 18:21> Subjective - Date & Time of Evaluation Date of Evaluation: 11/29/18 Time of Evaluation: 08:00 - Subjective Subjective: PGY6 GI Fellow Progress Note Patient seen and examined bedside this morning. Patient's is at bedside. The patient states that he is feeling better today with no significant complaint. Does introduce new complaints such as history of intermittent left and right arm paresthesias/numbness. Denies any abdominal pain presently. No nausea, vomiting, bloating at this time. 12 system ROS performed and negative except where stated Objective - Vital Signs/Intake and Output Vital Signs (last 24 hours): Temp Pulse Resp BP Pulse Ox 98.1 F 60 18 165/87 H 98 11/29/18 07:50 11/29/18 09:00 11/29/18 07:50 11/29/18 09:00 11/29/18 07:50 Intake and Output: 11/29/18 11/29/18 06:59 18:59 Intake Total 0 Balance 0 - Medications Medications: Current Medications Aspirin (Ecotrin) 81 mg PO DAILY [facility] Last Admin: 11/29/18 08:59 Dose: 81 mg Atorvastatin Calcium (Lipitor) 10 mg PO DIN [facility] Last Admin: 11/28/18 18:11 Dose: 10 mg Carvedilol (Coreg) 3.125 mg PO BID [facility] Last Admin: 11/29/18 09:00 Dose: 3.125 mg Clopidogrel Bisulfate (Plavix) 75 mg PO DAILY [facility] Last Admin: 11/29/18 08:59 Dose: 75 mg Lisinopril (Zestril) 2.5 mg PO DAILY [facility] Last Admin: 11/29/18 08:59 Dose: 2.5 mg Oxycodone HCl (Oxycodone Immediate Release Tab) 30 mg PO QAM [facility] Last Admin: 11/28/18 09:34 Dose: 30 mg Pantoprazole Sodium (Protonix Ec Tab) 40 mg PO ACB [facility] Last Admin: 11/29/18 08:35 Dose: Not Given Tamsulosin HCl (Flomax) 0.4 mg PO DAILY [facility] Last Admin: 11/28/18 09:34 Dose: 0.4 mg - Labs Labs: 11/28/18 05:00 11/28/18 05:00 PT 11.4 SECONDS (9.4-12.5) 11/26/18 12:09 INR 1.01 11/26/18 12:09 APTT 29.2 Seconds (26.9-38.3) 11/26/18 12:09 - Constitutional Appears: Non-toxic, No Acute Distress - Eye Exam Eye Exam: EOMI, PERRL - ENT Exam ENT Exam: Mucous Membranes Moist - Respiratory Exam Respiratory Exam: Clear to Ausculation Bilateral. absent: Rales, Rhonchi, Wheezes - Cardiovascular Exam Cardiovascular Exam: RRR, +S1, +S2 - GI/Abdominal Exam GI & Abdominal Exam: Soft, Normal Bowel Sounds. absent: Distended, Firm, Guarding, Rigid, Tenderness, Organomegaly - Extremities Exam Extremities Exam: Normal Inspection. absent: Pedal Edema - Neurological Exam Neurological Exam: Alert, Awake, Oriented x3 - Psychiatric Exam Psychiatric exam: Normal Affect, Normal Mood - Skin Skin Exam: Dry, Warm Assessment and Plan - Assessment and Plan (Free Text) Assessment: Patient is a 63yo male with PMHx significant for CAD s/p PCI x3, NSTEMI, HTN, hyperlipidemia, tobacco/EtOH use who presented to the ED for dizziness, lightheaded -Dizziness/lightheadedness -Dyspnea on exertion/orthopnea -Hypoglycemia -Bloating -CAD s/p PCI -Chronic angina on Ranexa Plan: -Consideration for EGD was given however with significant CAD history and ongoing dyspnea/orthopnea, appreciate cardiology evaluation and note plan for cardiac catheterization today -As such, patient to be given DAPT this morning -Once cardiac work up is complete, consider EGD -Hypoglycemia noted on admission without clear etiology - may benefit from further work up in to causes of hypoglycemia -Continue PPI therapy -Cannot perform noninvasive eval for H pylori in setting of recent antacid use <Matthew,Kovil V - Last Filed: 11/29/18 20:42> Objective - Vital Signs/Intake and Output Vital Signs (last 24 hours): Temp Pulse Resp BP Pulse Ox 98.6 F 85 18 141/87 98 11/29/18 17:34 11/29/18 18:14 11/29/18 17:49 11/29/18 18:14 11/29/18 07:50 Intake and Output: 11/29/18 11/30/18 18:59 06:59 Intake Total 240 Balance 240 - Medications Medications: Current Medications Aspirin (Ecotrin) 81 mg PO DAILY [facility] Last Admin: 11/29/18 08:59 Dose: 81 mg Atorvastatin Calcium (Lipitor) 10 mg PO DIN [facility] Last Admin: 11/29/18 18:16 Dose: Not Given Carvedilol (Coreg) 3.125 mg PO BID [facility] Last Admin: 11/29/18 18:14 Dose: 3.125 mg Lisinopril (Zestril) 2.5 mg PO DAILY [facility] Last Admin: 11/29/18 08:59 Dose: 2.5 mg Oxycodone HCl (Oxycodone Immediate Release Tab) 30 mg PO QAM [facility] Last Admin: 11/29/18 10:00 Dose: Not Given Pantoprazole Sodium (Protonix Ec Tab) 40 mg PO ACB [facility] Last Admin: 11/29/18 08:35 Dose: Not Given Tamsulosin HCl (Flomax) 0.4 mg PO DAILY [facility] Last Admin: 11/29/18 10:00 Dose: Not Given - Labs Labs: 11/29/18 16:46 11/29/18 16:46 PT 11.4 SECONDS (9.4-12.5) 11/26/18 12:09 INR 1.01 11/26/18 12:09 APTT 29.2 Seconds (26.9-38.3) 11/26/18 12:09 Attending/Attestation - Attestation I have personally seen and examined this patient.: Yes I have fully participated in the care of the patient.: Yes I have reviewed all pertinent clinical information, including history, physical exam and plan: Yes Notes (Text): This is an addendum to the GI progress note dictated by the fellow. The patient was seen and evaluated along with the GI fellow earlier today. I did discuss with the Dr. Ga regarding this patient at length. Status post cardiac cath findings noted. The patient would need a EGD and a colonoscopy. Patient does have cholelithiasis. His symptoms are atypical. History of significant hypoglycemia etiology unclear. Requested insulin level patient has been on Plavix. It the reasonable thing is to consider EGD and colonoscopy when the patient can be off Plavix 5 to 7 days if possible otherwise will consider diagnostic EGD. We will discuss with the Dr. Lopez 11/29/18 20:41
[2018-11-29] MEDS ORDERED: Sodium Chloride 0.9% 1,000 ML IV SCH (12:00)
--- NOTE | 2018-11-29 12:38 | CPOSTOP ---
DATE: 11/29/2018 DICTATING PHYSICIAN: Nini Ga MD RETORT LOAD EXPEDITER: Jael Kang. TYPE OF ANESTHESIA: Moderate conscious sedation. Total 2 mg of Versed and 50 of fentanyl given. PRE-PROCEDURE DIAGNOSIS: Unstable angina, acute coronary syndrome. PROCEDURE PERFORMED: Left heart catheterization. FINDINGS: Nonobstructive coronary artery disease, patent previous PTCA sites and stent , decreased LV function. FINAL DIAGNOSIS: Nonobstructive coronary artery disease. POST PROCEDURE CONDITION: The patient's condition is stable. VASCULAR ACCESS SITE: Right femoral artery. CLOSURE DEVICE: AngioSeal. TOTAL RADIATION DOSE: 5078.07 milligray unit. CUMULATIVE DOSE: 628 milligray unit. FLUORO TIME: 1.5 minutes. Nini Ga MD [facility]
--- NOTE | 2018-11-29 16:07 | CARD ---
APPROVED REPORT Date of service: 11/26/2018 EKG Measurement Heart [id number] <Conclusion> Normal sinus rhythm Inferior infarct, age undetermined ST & T wave abnormality, consider anterolateral ischemia Abnormal ECG
--- NOTE | 2018-11-29 16:50 | CARD ---
APPROVED REPORT Date of service: 11/29/2018 Procedure(s) performed: Left Heart Catheterization HISTORY The patient is a 63 year-old male with a history of : previous IL (> 7 days), previous diagnostic cath, tobacco history() : The patient is a current smoker , hypertension , dyslipidemia , Hx of multiple stents admitted with Unstable angina, but troponin remained flat ( negative), suggested GI W/u, But Depot Manager suggestedInvasive w/u before Gi W/u, because Hx of recent unstable angina. INDICATION The indication(s) include : unstable angina . CASE TECHNIQUE The patient was brought urgently to the Cardiac Catheterization Laboratory in a fasting state and was prepped and draped in a sterile manner. The right femoral groin was infiltrated with 2% Lidocaine subcutaneous anesthesia. A 6 Fr x 11 cm Abby sheath was inserted into the right femoral artery without difficulty. Coronary angiography was performed using coronary diagnostic catheters. The left coronary system was accessed and visualized with a Diagnostic,5F JL 4 CATH DXT 100 CM catheter. The right coronary system was accessed and visualized with a Diagnostic ,5F JR 4 CATH DXT 100 CM catheter. The left ventricle was accessed and visualized with a 5F PIGTAIL 145 CATH DXT 110 CM catheter. Left ventricular/Aortic Valve gradient assessed on pullback. Left ventriculogram was performed in GAMEZ projection. Closure device was deployed with a 6 Fr Angio-Seal without any complications. The patient tolerated the procedure well and there were no complications associated with the procedure. Vessel Analysis The patient's coronary anatomy is right dominant. The left main coronary artery is a large size vessel with diffuse calcification noted throughout this vessel and without significant stenosis. The left main bifurcates to the left anterior descending and circumflex. The left anterior descending artery is a medium size vessel with diffuse calcification noted throughout this vessel and without significant stenosis. There is a 70% stenosis in the very distal segment. like athread, but no focal stenosis, not suitable for PCI. The first diagonal branch is a small size vessel with diffuse calcification noted throughout this vessel and without significant stenosis. The circumflex artery is a medium size vessel with diffuse calcification noted throughout this vessel and without significant stenosis. patent stents in Mid Cx. The first obtuse marginal branch is a medium size vessel with diffuse calcification noted throughout this vessel and without significant stenosis. The second obtuse marginal branch is a small size vessel with diffuse calcification noted throughout this vessel and without significant stenosis. The ramus intermedius artery is a medium size vessel with diffuse calcification noted throughout this vessel and without significant stenosis. patent stent noted The right coronary artery is a large size vessel with diffuse calcification noted throughout this vessel and without significant stenosis. There is a 60% stenosis in the distal segment. The right posterior descending artery is a medium size vessel with diffuse calcification noted throughout this vessel and without significant stenosis. R PDA divides into upper and lower div. lower div has 80% stenosis, unchanged from 11/17/2016.less than 1.5 mm in diameter ,not suitable for PCI. The right posterolateral branch is a medium size vessel with diffuse calcification noted throughout this vessel and without significant stenosis. patent previou PTCA ( POBA) site Left Ventricle The left ventricle is borderline enlarged in size with mildly decreased contractility. Ischemic cardiomyopathy. The left ventricular ejection fraction is estimated to be 45%. The left ventricular end diastolic pressure is 18 mmHg. There was no gradient across the aortic valve upon pullback. Conclusion Patent previous PTCa sites. Distal LAD and lower Div of RPDA has stenoses. they are smal calbre vessel and not suitable for PCI. mildly decreaesd Lv Fx. Ef-455, EDP_18 mmof Hg. Recommendations Aggressive Medical TherapyCardiac Risk Reduction Program Hold plavix and GI and endocrine W/u for hypoglycemia as well. CC; Dr. Liss Lopez MD.
[2018-11-29 16:52] LABS: BASO # 0.02 K/mm3 (0.0-2.0); BASO % 0.3 % (0.0-3.0); EOS # 0.1 (0.0-0.7); HEMOGLOBIN 12.9 g/dL (14.0-18.0); LYMPH # 1.9 (1.2-3.4); LYMPH % 24.3 % (22.0-35.0); MEAN CELL VOLUME 80.8 fl (80.0-105.0); MEAN CORPUSCULAR HEMOGLOBIN 26.9 pg (25.0-35.0); MEAN CORPUSCULAR HGB CONC 33.2 g/dl (31.0-37.0); MEAN PLATELET VOLUME 8.9 fl (7.0-11.0); MONO # 0.6 (0.1-0.6); MONO % 7.4 % (1.0-6.0); RBC 4.8 10^6/uL (3.5-6.1); RED CELL DISTRIBUTION WIDTH 14.1 % (11.5-14.5)
--- NOTE | 2018-11-29 16:59 | PN ---
DATE: 11/29/2018 SUBJECTIVE: The patient is a 63-year-old male who developed profuse diaphoresis, grogginess, lethargy at home. The vision was blurred. He was brought into the emergency room by squad which the patient called. He was found to have hypoglycemia with a glucose level of 35. He also had abdominal distension, bloating, and epigastric discomfort. The patient is known to have a history of hypertension, hyperlipidemia, coronary artery disease status post PTCA. The patient was scheduled for an endoscopy with Dr. Castro; however, he felt more comfortable first getting cardiac clearance. So therefore at present, the patient is undergoing coronary catheterization with Dr. Ga. ASSESSMENT AND PLAN: The case to be discussed with Dr. Ga as well as with Dr. Castro, and results of the catheterization are pending. We will continue to follow the patient closely. Crow Lopez MD
[2018-11-29 17:05] LABS: BLOOD UREA NITROGEN 13 mg/dL (7-21); CALCIUM 9.2 mg/dL (8.4-10.5); GFR NON-AFRICAN AMERICAN > 60
[2018-11-30 07:04] LABS: BASO # 0.01 K/mm3 (0.0-2.0); BASO % 0.1 % (0.0-3.0); EOS # 0.1 (0.0-0.7); EOS % 1.3 % (1.5-5.0); HEMOGLOBIN 13.6 g/dL (14.0-18.0); LYMPH # 1.4 (1.2-3.4); LYMPH % 17.9 % (22.0-35.0); MEAN CELL VOLUME 80.9 fl (80.0-105.0); MEAN CORPUSCULAR HEMOGLOBIN 26.7 pg (25.0-35.0); MEAN PLATELET VOLUME 9.5 fl (7.0-11.0); MONO # 0.5 (0.1-0.6); MONO % 6.7 % (1.0-6.0); RBC 5.09 10^6/uL (3.5-6.1); RED CELL DISTRIBUTION WIDTH 14.1 % (11.5-14.5); WHITE BLOOD COUNT 7.7 10^3/uL (4.5-11.0)
[2018-11-30 07:35] LABS: ALB/GLOB RATIO 1.2 (1.1-1.8); ALBUMIN 4.5 g/dL (3.0-4.8); ALT/SGPT 16 U/L (7-56); AST/SGOT 28 U/L (17-59); BLOOD UREA NITROGEN 13 mg/dL (7-21); CALCIUM 9.6 mg/dL (8.4-10.5); GFR NON-AFRICAN AMERICAN > 60
--- NOTE | 2018-11-30 08:08 | CP.PCM.PN ---
Subjective - Date & Time of Evaluation Date of Evaluation: 11/30/18 Time of Evaluation: 07:05 - Subjective Subjective: Awake, alert, walking to bathroom Reason for consultation and follow up: Cardiac follow up; history of coronary artery disease post cardiac stents, history of myocardial infarction, Non-STEMI, Admitted for hypoglycemia, lightheadedness,dizziness Seen and examined by me and Dr. Ga Objective - Vital Signs/Intake and Output Vital Signs (last 24 hours): Temp Pulse Resp BP Pulse Ox 98.6 F 85 18 141/87 98 11/29/18 17:34 11/29/18 18:14 11/29/18 17:49 11/29/18 18:14 11/29/18 07:50 Intake and Output: 11/30/18 11/30/18 06:59 18:59 Intake Total 240 Balance 240 - Medications Medications: Current Medications Aspirin (Ecotrin) 81 mg PO DAILY [facility] Last Admin: 11/29/18 08:59 Dose: 81 mg Atorvastatin Calcium (Lipitor) 10 mg PO DIN [facility] Last Admin: 11/29/18 18:16 Dose: Not Given Carvedilol (Coreg) 3.125 mg PO BID [facility] Last Admin: 11/29/18 18:14 Dose: 3.125 mg Lisinopril (Zestril) 2.5 mg PO DAILY [facility] Last Admin: 11/29/18 08:59 Dose: 2.5 mg Oxycodone HCl (Oxycodone Immediate Release Tab) 30 mg PO QAM [facility] Last Admin: 11/29/18 10:00 Dose: Not Given Pantoprazole Sodium (Protonix Ec Tab) 40 mg PO ACB [facility] Last Admin: 11/29/18 08:35 Dose: Not Given Tamsulosin HCl (Flomax) 0.4 mg PO DAILY [facility] Last Admin: 11/29/18 10:00 Dose: Not Given - Labs Labs: 11/30/18 06:30 11/30/18 06:30 PT 11.4 SECONDS (9.4-12.5) 11/26/18 12:09 INR 1.01 11/26/18 12:09 APTT 29.2 Seconds (26.9-38.3) 11/26/18 12:09 - Constitutional Appears: Non-toxic, No Acute Distress - Head Exam Head Exam: NORMAL INSPECTION, NORMOCEPHALIC - Eye Exam Eye Exam: Normal appearance Pupil Exam: NORMAL ACCOMODATION - ENT Exam ENT Exam: Mucous Membranes Moist, Normal Exam - Respiratory Exam Respiratory Exam: Clear to Ausculation Bilateral, NORMAL BREATHING PATTERN - Cardiovascular Exam Cardiovascular Exam: +S1, +S2 - GI/Abdominal Exam GI & Abdominal Exam: Soft, Normal Bowel Sounds - Extremities Exam Extremities Exam: Full ROM, Normal Capillary Refill - Neurological Exam Neurological Exam: Alert, Awake, Oriented x3 - Psychiatric Exam Psychiatric exam: Normal Affect, Normal Mood - Skin Skin Exam: Dry, Normal Color Assessment and Plan - Assessment and Plan (Free Text) Assessment: A 63 year old male who came in to the ER due to dizziness, diaphoresis and lightheadedness. Blood glucose in ER showed 35mg/dl. Given D50 glucose in ER. Glucose stabilized. History of coronary artery disease post multiple stents (11/28/2014) last cardiac cath was 11/17/2016 and showed small vessel disease not significant change from cath 11/14/16 except PLV branch of RCA had 90% stenosis, plain angioplasty of the posterior LV branch was done (not suitable for stent) LVEF 55%. Echo done on 11/18/16 showed LVEF 45 %,trace AR, trace to mild MR/TR, RVSP 22 mmHg. History of hyperlipidemia ,hypertension, alcohol and tobacco abuse.Still currently smokes. Denies chest pain. Denies shortness of breath. Troponin negative. EKG normal sinus rhythm,lateral wall ST-T changes, compared to previous study no significant change. Ruled out acute coronary syndrome. No evidence of myocardial infarction. Complaining of bloating symptom s. GI on consult. PPI started. Work up in progress. Echo done and showed moderate to severe hypokinesis in the basal inferoseptal wall, LVEF 35-40%, mild to moderate mitral regurgitation,trace to mild tricuspid regurgitation RVSP 25 mmHg. Left shoulder X ray done for pain and showed no fracture, degenerative arthritis,calcified tendinitis. US of abdomen showed cholelithiasis without cholecystitis. Denies chest pain or shortness of breath. No evidence of heart failure or myocardial ischemia. Had cardiac cath yesterday and showed patent previous PTCA sites, Distal LAD and lower RPDA has stenosis, small caliber vessel and not suitable for PCI, LVEF 45%. Hold Plavix and Aspirin for possible endoscopy. Cleared for EGD/colonoscopy with moderate risk. No absolute contraindication for procedure. Cardiac status stable. Plan: No distress Cardiac status stable. Feels better, denies chest pain Heart rate stable Blood pressure controlled On Lipitor 10 mg daily, Coreg 3.125 mg BID,ASA 81 mg daily Plavix 75 mg daily, Lisinopril 2.5 mg daily, Lopressor 25 mg BID Held Plavix and ASA for EGD Continue current treatment Continue current medications GI on consult, work up in progress Insulin Level ordered Will follow up Plan and treatment discussed with
[2018-11-30 08:45] VITALS: BP 142/89; PULSE 68; RESP 16; TEMP 98.3
[2018-11-30] MEDS: Pantoprazole 40 mg EC Tab PO SCH (09:09)
[2018-11-30] MEDS: oxyCODONE 30 mg Immediate Release Tab PO SCH (09:10)
--- NOTE | 2018-11-30 13:04 | CP.PCM.PN ---
<Cristian Nelson - Last Filed: 11/30/18 13:00> Subjective - Date & Time of Evaluation Date of Evaluation: 11/30/18 Time of Evaluation: 08:45 - Subjective Subjective: PGY6 GI Fellow Progress Note Patient seen and examined bedside this morning. The patient states that he is feeling well today and has no complaints. He is very eager to return home and does not wish for any further work up. No chest pain, nausea, vomiting, bloating today. 12 system ROS performed and negative except where stated Objective - Vital Signs/Intake and Output Vital Signs (last 24 hours): Temp Pulse Resp BP Pulse Ox 98.3 F 68 16 142/89 98 11/30/18 08:45 11/30/18 08:45 11/30/18 08:45 11/30/18 08:45 11/30/18 08:45 Intake and Output: 11/30/18 11/30/18 06:59 18:59 Intake Total 240 Balance 240 - Medications Medications: Current Medications Aspirin (Ecotrin) 81 mg PO DAILY [facility] Last Admin: 11/29/18 08:59 Dose: 81 mg Atorvastatin Calcium (Lipitor) 10 mg PO DIN [facility] Last Admin: 11/29/18 18:16 Dose: Not Given Carvedilol (Coreg) 3.125 mg PO BID [facility] Last Admin: 11/30/18 09:10 Dose: 3.125 mg Lisinopril (Zestril) 2.5 mg PO DAILY [facility] Last Admin: 11/30/18 09:09 Dose: 2.5 mg Oxycodone HCl (Oxycodone Immediate Release Tab) 30 mg PO QAM [facility] Last Admin: 11/30/18 09:10 Dose: 30 mg Pantoprazole Sodium (Protonix Ec Tab) 40 mg PO ACB [facility] Last Admin: 11/30/18 09:09 Dose: 40 mg Tamsulosin HCl (Flomax) 0.4 mg PO DAILY [facility] Last Admin: 11/30/18 09:10 Dose: 0.4 mg - Labs Labs: 11/30/18 06:30 11/30/18 06:30 PT 11.4 SECONDS (9.4-12.5) 11/26/18 12:09 INR 1.01 11/26/18 12:09 APTT 29.2 Seconds (26.9-38.3) 11/26/18 12:09 - Constitutional Appears: Non-toxic, No Acute Distress - Eye Exam Eye Exam: EOMI, PERRL - ENT Exam ENT Exam: Mucous Membranes Moist - Respiratory Exam Respiratory Exam: Clear to Ausculation Bilateral. absent: Rales, Rhonchi, Wheezes - Cardiovascular Exam Cardiovascular Exam: RRR, +S1, +S2 - GI/Abdominal Exam GI & Abdominal Exam: Soft, Normal Bowel Sounds. absent: Distended, Firm, Guarding, Rigid, Tenderness, Organomegaly - Extremities Exam Extremities Exam: Normal Inspection. absent: Pedal Edema - Neurological Exam Neurological Exam: Alert, Awake, Oriented x3 - Psychiatric Exam Psychiatric exam: Normal Affect, Normal Mood - Skin Skin Exam: Dry, Warm Assessment and Plan - Assessment and Plan (Free Text) Assessment: Patient is a 63yo male with PMHx significant for CAD s/p PCI x3, NSTEMI, HTN, hyperlipidemia, tobacco/EtOH use who presented to the ED for dizziness, lightheaded -Dizziness/lightheadedness -Dyspnea on exertion/orthopnea -Hypoglycemia -Bloating -CAD s/p PCI -Chronic angina on Ranexa Plan: -Pt s/p cardiac catheterization without any needed intervention -States he is feeling well and does not wish to pursue further interventions at this time -Patient agreeable to outpatient follow up if symptoms persist with potential for EGD at that time -No further episodes of bloating/nausea noted - possibly dietary in nature (educated on lactose free/Low FODMAP diet) or improvement with PPI therapy which should be continued for 4 more weeks -Hypoglycemia noted on admission remains without clear etiology - may benefit from further work up in to causes of hypoglycemia -Cannot perform noninvasive eval for H pylori in setting of recent antacid use, consider outpatient once off acid suppression <Matthew,Kovil V - Last Filed: 12/01/18 21:34> Objective - Vital Signs/Intake and Output Vital Signs (last 24 hours): Temp Pulse Resp BP Pulse Ox 98.3 F 68 16 142/89 98 11/30/18 08:45 11/30/18 08:45 11/30/18 08:45 11/30/18 08:45 11/30/18 08:45 - Labs Labs: 11/30/18 06:30 11/30/18 06:30 PT 11.4 SECONDS (9.4-12.5) 11/26/18 12:09 INR 1.01 11/26/18 12:09 APTT 29.2 Seconds (26.9-38.3) 11/26/18 12:09 Attending/Attestation - Attestation I have personally seen and examined this patient.: Yes I have fully participated in the care of the patient.: Yes I have reviewed all pertinent clinical information, including history, physical exam and plan: Yes Notes (Text): This is an addendum to the GI progress report dictated by the fellow. The patient was seen and evaluated earlier. Discussed with the patient at length advised to follow-up in our office to have an upper GI endoscopy and a colonoscopy. History of cholelithiasis. Importance of office follow-up to have the procedure done explained at length patient fully understood. Patient was on Plavix and aspirin. For coronary artery disease. 12/01/18 21:31
== END 2018-11-30 16:10 | disposition home or self-care (01) | DRG 287 ==
LOC: ED 11:54 → ERH 13:08 → 2RSO 15:55 → 3RSO 11-27 16:43 → 2RSO 11-29 12:02 → 3RSO 11-29 18:37
PROVIDERS: ADMIT Internal Medicine; ATTEND Internal Medicine
PROC: 4A023N7 Measurement of Cardiac Sampling and Pressure, Left Heart, Percutaneous Approach (ICD-10-PCS; principal; 2018-11-29)
PROC: B2151ZZ Fluoroscopy of Left Heart using Low Osmolar Contrast (ICD-10-PCS; 2018-11-29)
PROC: B2111ZZ Fluoroscopy of Multiple Coronary Arteries using Low Osmolar Contrast (ICD-10-PCS; 2018-11-29)
PROC: 4A033BC Measurement of Arterial Pressure, Coronary, Percutaneous Approach (ICD-10-PCS; 2018-11-29)
DX: I25.110 Atherosclerotic heart disease of native coronary artery with unstable angina pectoris (principal); E16.2 Hypoglycemia, unspecified; Z79.1 Long term (current) use of non-steroidal anti-inflammatories (NSAID); Z79.899 Other long term (current) drug therapy; K80.20 Calculus of gallbladder without cholecystitis without obstruction; M75.32 Calcific tendinitis of left shoulder; R53.1 Weakness; F17.290 Nicotine dependence, other tobacco product, uncomplicated; F10.10 Alcohol abuse, uncomplicated; R42 Dizziness and giddiness; I25.5 Ischemic cardiomyopathy; I25.2 Old myocardial infarction; I10 Essential (primary) hypertension; Z95.5 Presence of coronary angioplasty implant and graft; R14.0 Abdominal distension (gaseous); E78.5 Hyperlipidemia, unspecified; K21.0 Gastro-esophageal reflux disease with esophagitis; Z79.02 Long term (current) use of antithrombotics/antiplatelets; Z79.82 Long term (current) use of aspirin; Z80.6 Family history of leukemia; Z82.49 Family history of ischemic heart disease and other diseases of the circulatory system; Z83.3 Family history of diabetes mellitus